=== PATIENT | male | born 1975 | race African-American/Black ===

== ENCOUNTER 2018-12-24 08:00 | Inpatient (IN) | payer OTHER ==
[2019-01-02] MEDS ORDERED: SODIUM CHLORIDE 0.9% P/F 10 ML VIAL IJ ONE (07:00)
[2019-01-02] MEDS ORDERED: MIDAZOLAM HCL 2 MG/2 ML SINGLE DOSE VIAL ONE ×3 (07:00→09:19)
[2019-01-02] MEDS ORDERED: BUPIVACAINE LIPOSOME/PF (EXPAREL) 266 MG/20 ML VIAL ONE (07:01)
[2019-01-02] MEDS ORDERED: ONDANSETRON 4 MG/2 ML VIAL ONE ×2 (08:02→12:12)
[2019-01-02] MEDS ORDERED: CEFAZOLIN 2 GM in DEXTROSE 5%-WATER - 50 ML IVPB ONE (08:23)
[2019-01-02] MEDS ORDERED: TRANEXAMIC ACID 1000 MG/10 ML VIAL IVPUSH ONE (08:23)
[2019-01-02] MEDS ORDERED: VANCOMYCIN 1,000 MG in DEXTROSE 5%-WATER - 250 ML IVPB ONE (08:23)
[2019-01-02] MEDS ORDERED: ceFAZolin SODIUM 1 GM VIAL ONE ×2 (08:30→10:31)
[2019-01-02] MEDS ORDERED: PROPOFOL 20 ML ONE (08:36)
[2019-01-02] MEDS ORDERED: SUCCINYLCHOLINE CHLORIDE 200 MG/10 ML VIAL ONE (08:36)
[2019-01-02] MEDS ORDERED: BENZOIN TINCTURE SWABSTICK TP ONE (10:19)
[2019-01-02] MEDS ORDERED: MAGNESIUM HYDROX 2400MG/30ML ORAL SUSPENSION 30 ML CUP PO PRN (11:13)
[2019-01-02] MEDS ORDERED: MAG HYDROX/AL HYDROX/SIMETH 30 ML UNIT-DOSE CUP PO PRN (11:13)
[2019-01-02] MEDS ORDERED: ONDANSETRON 4 MG/2 ML VIAL IVPUSH PRN (11:13)
--- NOTE | 2019-01-02 11:13 | OP ---
Operative Note - Note: Operative Date: 01/02/19 Pre-Operative Diagnosis: left knee osteoarthritis Operation: left total knee replacement Surgeon: Deep West Manager Beauty: Venus Goss Anesthesiologist/SPORTS MANAGEMENT INTERN: Emilio Beckman Anesthesia: Spinal Estimated Blood Loss (mls): 20 Fluid Volume Replaced (mls): 1,700 Operative Report Dictated: Yes
[2019-01-02] MEDS ORDERED: LACTATED RINGERS SOLUTION 1,000 ML IV SCH (11:15)
[2019-01-02] MEDS ORDERED: ACETAMINOPHEN INJECTION 100 ML IVPB ONE (11:22)
[2019-01-02] MEDS ORDERED: ACETAMINOPHEN 325 MG TABLET (FP) ONE (11:22)
[2019-01-02] MEDS ORDERED: ONDANSETRON 4 MG/2 ML VIAL IVPUSH ONE ×2 (11:25→12:15)
[2019-01-02] MEDS ORDERED: ACETAMINOPHEN 500 MG TABLET (FP) PO SCH (11:30)
[2019-01-02] MEDS ORDERED: ACETAMINOPHEN 1000 MG/100 ML VIAL (NON FORMULARY) IVPB SCH (11:30)
[2019-01-02] MEDS ORDERED: oxyCODONE HCL 5 MG TABLET ONE (12:12)
[2019-01-02] MEDS ORDERED: oxyCODONE HCL 5 MG TABLET PO ONE (12:25)
[2019-01-02] MEDS: oxyCODONE HCL 5 MG TABLET PO PRN ×2 (15:25→21:12)
--- NOTE | 2019-01-02 18:01 | SURG ---
Surgery Machine Operator Packaging Note Machine Operator Packaging: Venus Goss PA-C Date of Service: 01/02/19 Diagnosis: left knee osteoarthritis Procedure: left total knee replacement I was present for the entirety of the operative procedure. For further detail, please refer to operative report. Visit type - Case Type Case Type: Scheduled - Emergency Emergency Visit: No - New patient This patient is new to me today: Yes Date on this admission: 01/02/19
[2019-01-02] MEDS: KETOROLAC TROMETHAMINE 30 MG/1 ML VIAL IVPUSH SCH (18:14)
[2019-01-02] MEDS: CEFAZOLIN 1 GM/D5W 1 GM/50 ML BAG IVPB SCH (18:15)
[2019-01-02] MEDS: ACETAMINOPHEN 325 MG TABLET (FP) PO SCH (18:15)
[2019-01-02] MEDS: GABAPENTIN 300 MG CAPSULE (FP) PO SCH (21:11)
[2019-01-02] MEDS: oxyCODONE HCL 10 MG SUSTAINED ACTING TABLET PO SCH (21:11)
[2019-01-02] MEDS: SENNOSIDES/DOCUSATE COMBO (SENNA PLUS) TABLET (UD) PO SCH (21:11)
[2019-01-02] MEDS: ASPIRIN 81 MG CHEWABLE TABLETS PO SCH (21:12)
[2019-01-03] MEDS: KETOROLAC TROMETHAMINE 30 MG/1 ML VIAL IVPUSH SCH ×3 (02:00→17:57)
[2019-01-03] MEDS ORDERED: CEFAZOLIN 1 GM in DEXTROSE 5%-WATER - 50 ML IVPB ONE (03:15)
[2019-01-03] MEDS ORDERED: ceFAZolin SODIUM 1 GM VIAL ONE (03:17)
[2019-01-03] MEDS ORDERED: DEXTROSE 5%-WATER - 50 ML IVPB ONE ×2 (03:17→20:40)
[2019-01-03] MEDS: CEFAZOLIN 1 GM/D5W 1 GM/50 ML BAG IVPB SCH (03:19)
[2019-01-03] MEDS: ACETAMINOPHEN 325 MG TABLET (FP) PO SCH ×3 (06:27→12:37)
[2019-01-03] MEDS: oxyCODONE HCL 5 MG TABLET PO PRN (08:30)
[2019-01-03 08:33] LABS: HEMATOCRIT 33.5 % (35.4-49); HEMOGLOBIN 11.2 GM/dl (11.7-16.9); MCH 32.7 pg (25.7-33.7); MCHC 33.4 g/dl (32.0-35.9); MEAN CELL VOLUME 97.9 fl (80-96); MEAN PLT VOLUME 8.4 fl (7.5-11.1); PLATELET COUNT 263 K/MM3 (134-434); RBC 3.43 M/mm3 (4.00-5.60); RDW 12.3 % (11.9-15.9); WHITE BLOOD COUNT 16.2 K/mm3 (4.0-10.8)
[2019-01-03 08:43] LABS: CALCIUM 8.3 mg/dl (8.5-10); CREATININE 1.5 mg/dl (0.55-1.3); POTASSIUM 3.9 mmol/L (3.5-5.1)
[2019-01-03] MEDS: GABAPENTIN 300 MG CAPSULE (FP) PO SCH ×2 (10:24→21:19)
[2019-01-03] MEDS: oxyCODONE HCL 10 MG SUSTAINED ACTING TABLET PO SCH ×2 (10:24→21:19)
[2019-01-03] MEDS: ASPIRIN 81 MG CHEWABLE TABLETS PO SCH ×2 (10:24→21:19)
[2019-01-03] MEDS: MULTIVITAMINS (DAILY MVI) TABLET (FP) PO SCH (10:27)
[2019-01-03] MEDS: PANTOPRAZOLE 40 MG TABLET (FP) PO SCH (10:27)
[2019-01-03] MEDS: SENNOSIDES/DOCUSATE COMBO (SENNA PLUS) TABLET (UD) PO SCH ×2 (10:27→21:19)
--- NOTE | 2019-01-03 10:28 | CONSULT ---
Consult Consult Specialty:: IM Reason for Consultation:: post-op medical management - History of Present Illness Chief Complaint: left knee pain History of Present Illness: 43yo man with left knee pain for the past 3 years came in for knee replacement. denies chest pain, palpitations, nausea, vomiting, diarrhea. - History Source History Provided By: Patient Limitations to Obtaining History: No Limitations - Alcohol/Substance Use Hx Alcohol Use: No - Smoking History Smoking history: Never smoked Home Medications - Allergies Allergies/Adverse Reactions: Allergies Allergy/AdvReac Type Severity Reaction Status Date / Time No Known Drug Allergies Allergy Verified 01/02/19 06:45 seasonal Allergy Uncoded 01/02/19 06:45 - Home Medications Home Medications: Ambulatory Orders NK [No Known Home Medication] 12/24/18 Review of Systems - Review of Systems Constitutional: reports: No Symptoms Eyes: reports: No Symptoms HENT: reports: No Symptoms Neck: reports: No Symptoms Cardiovascular: reports: No Symptoms Respiratory: reports: No Symptoms Gastrointestinal: reports: No Symptoms Genitourinary: reports: No Symptoms Musculoskeletal: reports: Joint Pain Integumentary: reports: No Symptoms Neurological: reports: No Symptoms Endocrine: reports: No Symptoms Psychiatric: reports: No Symptoms Physical Exam Vital Signs: Vital Signs Temperature 99.0 F 01/03/19 06:00 Pulse Rate 101 H 01/03/19 06:00 Respiratory Rate 19 01/03/19 06:00 Blood Pressure 122/48 L 01/03/19 06:00 O2 Sat by Pulse Oximetry (%) 97 01/03/19 06:00 Constitutional: Yes: Obese Eyes: Yes: WNL HENT: Yes: WNL Neck: Yes: WNL Cardiovascular: Yes: WNL Respiratory: Yes: WNL Gastrointestinal: Yes: WNL Musculoskeletal: Yes: Joint Stiffness Extremities: Yes: WNL Edema: No Peripheral Pulses WNL: Yes Integumentary: Yes: WNL Wound/Incision: Yes: Clean/Dry, Well Approximated Neurological: Yes: WNL ...Motor Strength: LLE (3/5) Psychiatric: Yes: WNL Labs: CBC, BMP 01/03/19 07:10 01/03/19 07:10 Assessment/Plan 43 yo man with left knee OA S/P left total knee replacement POD #1. no complications. cont pain management. incentive spirometry. on aspirin, neurontin, oxycodone. extra dose of toradol had to be given last night. -PT/OT/OOB as tolerated -blood work reviewed. post-op reactive leucocytosis: will monitor. -cont stool softeners for opioid induced constipation. -morbid obesity: weight loss and healthier lifestyle advised. -CKD: kidney donor. will monitor. avoid nephrotoxic agents when possible. -hyperglycemia: to f/u with PCP to assess for DM -acute on chronic iron deficiency anemia: will monitor. -oral diet; well tolerated -assessment and plan discussed with pt and his at bedside. -
--- NOTE | 2019-01-03 12:28 | OP ---
DATE OF OPERATION: 01/02/2019 SURGEON: Deep West MD RETAIL PHARMACY MANAGER: Venus Goss PA-C ANESTHESIA: General. RADIOISOTOPE TECHNOLOGIST: Emilio Beckman CRNA PREOPERATIVE DIAGNOSIS: Tricompartmental osteoarthritis, left knee, with fixed varus deformity stretched lateral collateral ligament. POSTOPERATIVE DIAGNOSIS: Tricompartmental osteoarthritis, left knee, with fixed varus deformity stretched lateral collateral ligament. OPERATION: Left posterior stabilized total knee arthroplasty cemented, Antler implant. ANESTHESIA: Spinal anesthesia with peripheral nerve block and conscious sedation. ANTIBIOTICS: Kefzol 3 g, vancomycin 1 g preoperative. Kefzol 1 g given at the time of the release of the procedure. OPERATION IN DETAIL: The patient was correctly identified and brought in the operating room. The left lower extremity was prepped and draped in the routine manner with Betadine scrub solution, wiped with alcohol, and DuraPrep was applied. Imaging was available for intraoperative evaluation. Time-out was called. After appropriate prep with Betadine scrub solution, wiped with alcohol, and all skin sebaceous fat removed, a free drape was applied. Midline incision with the knee in flexion, the soft tissue was dissected down to the quadriceps mechanism. Using a longitudinal incision splitting the quadriceps tendon and a medial parapatellar incision with 1-cm cuff on the patella to the medial aspect of the tibial tubercle, the patella was capsized laterally. The knee was exposed of the routine dissection of the soft tissues off the proximal tibia. This was directly off the bone. Hohmann retractor placed behind the tibia leaving the tibia forwards. No complications in doing this. The tricompartmental osteoarthritis really noted predominantly in the patellofemoral medial joint compartment with advanced arthritic changes noted on the lateral evidenced by a rim osteophyte and fibrillation on the femoral condyle in the femorotibial articulation in the lateral compartment. The menisci were intact. The cruciate ligaments were transected. The jig system for Location was utilized in the tibia first. This was cut to 90 degrees at the shaft of the tibia. The sizing was for a size 6 tibial component. The tibial tray was appropriately prepared with the appropriate jig system and initial drill and broach device. Once this had been performed, the femoral component was inserted by a starter drill insertion at the intercondylar notch just above the posterior cruciate ligament. The jig was sent to 10 degrees bony resection because of the fixed flexion deformity and 4 degrees of valgus. The lateral femoral condyle was deficient. The jigs were seated according to the tibial surface for the flexion gap alignment. All jig cuts were made with the appropriate Location system including the box cut for a posterior stabilized implant, a size 6 Triathlon Antler implant was tested and trialed. With an 11-mm spacer, the flexion extension gaps were even at 11 mm, the knee tracked well, the patellar tracking was normal, uncomplicated. The limb, which was in marked varus preoperatively, was now straight, and tracking of the femorotibial articulation was well maintained. A subtle degree of jog of laxity on the lateral side noted from the stretch of the lateral collateral ligament. The popliteus tendon was left alone. Once trialing components were seated, the definitive implants were inserted measuring size 6 tibia, size 6 femur, size 27-mm patellar button after the jig, preparation with the patella applied, and it must be noted that the patella was cut from quadriceps tendon to patellar ligament, and then, the TravelLinellipop jig device applied, and lug holes drilled appropriately. Cementing was in one stage. All of extraneous cement removed. The knee was put through a range of movement, and it was found to be a range of 0 to 110 degrees, stability in the coronal, sagittal, and rotator planes with 11-mm spacer was well maintained, testing the medial compartment for a SHARK test with a Ty revealed a tight medial compartment, and this was the correct polyethylene spacer encountered for, this was a posterior stabilized polyethylene. Wounds were thoroughly lavaged. Closure as follows: Quadriceps tendon 1 Vicryl , subcutaneous 1 and 2-0 Vicryl, skin mary, drainage 1/8-inch Hemovac into the subcutaneous plane inserted. Operation went well with no complications. A gram of Kefzol was given at the release of the tourniquet and postoperative x-rays revealed excellent seating of implant. MD JOSEPH Steven/[id number] MTDD
--- NOTE | 2019-01-03 17:25 | PN ---
Progress Note (short form) - Note Progress Note: POD#1 Doing well C/O incisional pain Vitals as per chart. Walked in the hallway. Bandage dry No NVD Drain in situ PLAN Will D/C drain tomorrow Pain Mx DVT proph Aspirin with SSED D/C planning
[2019-01-03] MEDS ORDERED: PIPERACILLIN/TAZOB 3.375 GM 3.375 GM in DEXTROSE 5%-WATER - 50 ML IVPB ONE (19:15)
[2019-01-03] MEDS ORDERED: VANCOMYCIN 1 GM in D5W (PRE-DOCKED) 1,000 MG/250 ML IVPB ONE (19:15)
[2019-01-03] MEDS ORDERED: PIPERACILLIN/TAZOBACTAM 3.375 GM VIAL IVPB ONE (20:40)
[2019-01-04] MEDS: ACETAMINOPHEN 325 MG TABLET (FP) PO SCH ×4 (00:59→17:55)
[2019-01-04] MEDS: KETOROLAC TROMETHAMINE 30 MG/1 ML VIAL IVPUSH SCH ×3 (03:00→17:55)
[2019-01-04 09:45] LABS: BASO % 0.2 % (0-2.0); EOS % 0.8 % (0-4.5); HEMATOCRIT 34.4 % (35.4-49); HEMOGLOBIN 11.2 GM/dl (11.7-16.9); LYMPH % 10.9 % (8-40); MCH 32.4 pg (25.7-33.7); MCHC 32.6 g/dl (32.0-35.9); MEAN CELL VOLUME 99.4 fl (80-96); MEAN PLT VOLUME 8.7 fl (7.5-11.1); MONO % 5.7 % (3.8-10.2); NEUT % 82.4 % (42.8-82.8); PLATELET COUNT 236 K/MM3 (134-434); RBC 3.46 M/mm3 (4.00-5.60); RDW 12.4 % (11.9-15.9); WHITE BLOOD COUNT 18.2 K/mm3 (4.0-10.8)
[2019-01-04] MEDS: ASPIRIN 81 MG CHEWABLE TABLETS PO SCH ×2 (09:49→21:26)
[2019-01-04] MEDS: PANTOPRAZOLE 40 MG TABLET (FP) PO SCH (09:50)
[2019-01-04] MEDS: GABAPENTIN 300 MG CAPSULE (FP) PO SCH ×2 (09:50→21:29)
[2019-01-04] MEDS: oxyCODONE HCL 10 MG SUSTAINED ACTING TABLET PO SCH ×3 (09:50→21:42)
[2019-01-04] MEDS: MULTIVITAMINS (DAILY MVI) TABLET (FP) PO SCH (09:50)
[2019-01-04] MEDS: SENNOSIDES/DOCUSATE COMBO (SENNA PLUS) TABLET (UD) PO SCH ×2 (09:50→21:29)
[2019-01-04 09:52] LABS: CALCIUM 8.5 mg/dl (8.5-10); CREATININE 1.6 mg/dl (0.55-1.3); POTASSIUM 4.5 mmol/L (3.5-5.1)
--- NOTE | 2019-01-04 10:49 | PN ---
Progress Note, Physician Chief Complaint: left knee pain, fever History of Present Illness: 43yo man with left knee pain for the past 3 years came in for knee replacement. denies chest pain, palpitations, nausea, vomiting, diarrhea. - Current Medication List Current Medications: Active Medications Acetaminophen (Tylenol -) 650 mg PO Q6H [facility] Last Admin: 01/04/19 05:48 Dose: 650 mg Al Hydroxide/Mg Hydroxide (Mylanta Oral Suspension -) 30 ml PO Q4H PRN PRN Reason: DYSPEPSIA Aspirin (Asa -) 81 mg PO BID [facility] Last Admin: 01/04/19 09:49 Dose: 81 mg Fentanyl (Sublimaze Injection -) 50 mcg IVPUSH [id number] PRN PRN Reason: PAIN-PACU ORDER X 4 DOSES ONLY Gabapentin (Neurontin -) 300 mg PO BID [facility] Last Admin: 01/04/19 09:50 Dose: 300 mg Sodium Chloride (Normal Saline -) 1,000 mls @ 100 mls/hr IV ASDIR [facility] Ketorolac Tromethamine (Toradol Injection -) 30 mg IVPUSH Q8H-IV [facility] Stop: 01/07/19 17:59 Last Admin: 01/04/19 09:49 Dose: 30 mg Magnesium Hydroxide (Milk Of Magnesia -) 30 ml PO PRN PRN PRN Reason: CONSTIPATION Multivitamins/Minerals/Vitamin C (Tab-A-Vit -) 1 tab PO DAILY [facility] Last Admin: 01/04/19 09:50 Dose: 1 tab Ondansetron HCl (Zofran Injection) 4 mg IVPUSH Q6H PRN PRN Reason: NAUSEA Oxycodone HCl (Roxicodone -) 5 mg PO Q3H PRN PRN Reason: PAIN LEVEL 1-5 Last Admin: 01/03/19 08:30 Dose: 5 mg Oxycodone HCl (Roxicodone -) 10 mg PO Q3H PRN PRN Reason: PAIN LEVEL 6-10 Last Admin: 01/02/19 21:12 Dose: 10 mg Oxycodone HCl (Oxycontin -) 10 mg PO BID [facility] Stop: 01/05/19 14:22 Last Admin: 01/04/19 09:50 Dose: 10 mg Pantoprazole Sodium (Protonix -) 40 mg PO DAILY [facility] Last Admin: 01/04/19 09:50 Dose: 40 mg Senna/Docusate Sodium (Pericolace -) 2 tablet PO BID [facility] Last Admin: 01/04/19 09:50 Dose: 2 tablet - Objective Vital Signs: Vital Signs Temperature 102 F H 01/04/19 06:00 Pulse Rate 100 H 01/04/19 06:00 Respiratory Rate 18 01/04/19 08:22 Blood Pressure 141/51 L 01/04/19 06:00 O2 Sat by Pulse Oximetry (%) 97 01/04/19 08:22 Constitutional: Yes: Well Nourished Eyes: Yes: WNL HENT: Yes: WNL Neck: Yes: WNL Cardiovascular: Yes: WNL Gastrointestinal: Yes: WNL Genitourinary: Yes: WNL Musculoskeletal: Yes: Joint Stiffness Extremities: Yes: WNL Edema: No Peripheral Pulses WNL: Yes Integumentary: Yes: WNL Wound/Incision: Yes: Clean/Dry, Well Approximated Neurological: Yes: WNL ...Motor Strength: LLE (reduced post-op) Psychiatric: Yes: WNL Labs: CBC, BMP 01/04/19 08:00 01/04/19 08:00 Assessment/Plan 43 yo man with left knee OA S/P left total knee replacement POD #2. cont pain management. incentive spirometry. on aspirin, neurontin, oxycodone. -Pt developed fever: goldstein-cultured. one dose of zosyn, vanco given. on tylenol. -PT/OT/OOB as tolerated -hyponatremia: improved. -O2 via NC. keep O2>92%. -cont stool softeners for opioid induced constipation. -morbid obesity: weight loss and healthier lifestyle advised. -CKD: kidney donor. will monitor. avoid nephrotoxic agents when possible. -hyperglycemia: to f/u with PCP to assess for DM -acute on chronic iron deficiency anemia: will monitor. -oral diet; well tolerated -assessment and plan discussed with pt and his at bedside. -planning to DC home tomorrow if stable
[2019-01-04] MEDS: ENOXAPARIN NA (PORCINE) 120 MG/0.8 ML DISP.SYRIN SQ SCH (22:39)
[2019-01-05] MEDS: ACETAMINOPHEN 325 MG TABLET (FP) PO SCH ×5 (06:20→18:38)
[2019-01-05] MEDS: SODIUM CHLORIDE 1,000 ML IV SCH (09:13)
[2019-01-05] MEDS: KETOROLAC TROMETHAMINE 30 MG/1 ML VIAL IVPUSH SCH (09:14)
[2019-01-05] MEDS ORDERED: PT OWN MED DRAWER 7, Y5N ONE (09:25)
[2019-01-05] MEDS: ASPIRIN 81 MG CHEWABLE TABLETS PO SCH (09:50)
[2019-01-05] MEDS: SENNOSIDES/DOCUSATE COMBO (SENNA PLUS) TABLET (UD) PO SCH ×2 (09:50→22:37)
[2019-01-05] MEDS: MULTIVITAMINS (DAILY MVI) TABLET (FP) PO SCH (09:50)
[2019-01-05] MEDS: PANTOPRAZOLE 40 MG TABLET (FP) PO SCH (09:51)
[2019-01-05] MEDS: GABAPENTIN 300 MG CAPSULE (FP) PO SCH ×2 (09:51→22:32)
[2019-01-05] MEDS: ENOXAPARIN NA (PORCINE) 120 MG/0.8 ML DISP.SYRIN SQ SCH (09:52)
[2019-01-05 10:01] LABS: BASO % 2.7 % (0-2.0); EOS % 3.1 % (0-4.5); HEMATOCRIT 30.6 % (35.4-49); HEMOGLOBIN 10.2 GM/dl (11.7-16.9); LYMPH % 14.6 % (8-40); MCH 33.1 pg (25.7-33.7); MCHC 33.5 g/dl (32.0-35.9); MEAN PLT VOLUME 8.3 fl (7.5-11.1); MONO % 4.6 % (3.8-10.2); PLATELET COUNT 248 K/MM3 (134-434); RBC 3.09 M/mm3 (4.00-5.60); RDW 12.8 % (11.9-15.9)
[2019-01-05 10:19] LABS: CALCIUM 8.1 mg/dl (8.5-10); CREATININE 1.4 mg/dl (0.55-1.3); POTASSIUM 4.1 mmol/L (3.5-5.1)
--- NOTE | 2019-01-05 10:23 | PN ---
Progress Note (short form) - Note Progress Note: POD#3 Pt without any CP/SOB. OOB to chair/bathroom. Pt states that the drain was removed yesterday by Dr. West. Occasional dizziness with standing. Vital Signs Period Temp Pulse Resp BP Sys/Hill Pulse Ox Last 24 Hr 97.9 F-101.5 F 104-118 18-19 115-149/57-81 92-98 GEN: A&0x3, NAD CV: tachycardic Lungs: CTA b/l anteriorly RLE: no calf tenderness or swelling. SCD in place. LLE: mild swelling to knee/ below the knee, non-tender. Surgical dressing c/d/i. Neuro: 5/5 dorsi/plantar flexion b/l +2 DP pulses. CBC, BMP 06/24/19 09:36 06/24/19 09:36 Duplex study of b/l LE: No evidence of clot to both legs. V/Q scan: no discrete ventilation/perfusion mismatch visualized. A/P: 43 yo male s/p Left total knee replacement, POD#3 Pt with hypoxia when off of NC, he denies any CP or SOB. Pt has been receiving aspirin 81 mg bid for post-op DVT ppx. He was also placed on lovenox 120mg SQ BID for DVT treatment until all studies could by completed to R/o DVT. Incentive spirometer Pt also to be seen by cardiology, started on cardizem. D/w Dr. West May complete LLE vascular study. Dagoberto wrap and GURPREET may be removed to eval the LLE for DVT D/w Dr. Dobson
--- NOTE | 2019-01-05 10:39 | EKG ---
Test Reason : Blood Pressure : / mmHG Vent. Rate : 113 BPM Atrial Rate : 113 BPM P-R Int : 142 ms QRS Dur : 092 ms QT Int : 318 ms P-R-T Axes : 021 -17 025 degrees QTc Int : 436 ms SINUS TACHYCARDIA WITH FREQUENT PREMATURE VENTRICULAR COMPLEXES OTHERWISE NORMAL ECG NO PREVIOUS ECGS AVAILABLE Confirmed by SOL MOSQUEDA, INES ([id number]) on 01/05/2019 10:39:42 AM Referred By: Deep West Confirmed By:INES HORTON MD
--- NOTE | 2019-01-05 10:54 | PN ---
Progress Note, Physician Chief Complaint: left knee pain, fever History of Present Illness: 43yo man with left knee pain for the past 3 years came in for knee replacement. denies chest pain, palpitations, nausea, vomiting, diarrhea. - Current Medication List Current Medications: Active Medications Acetaminophen (Tylenol -) 650 mg PO Q6H [facility] Last Admin: 01/05/19 06:20 Dose: 650 mg Al Hydroxide/Mg Hydroxide (Mylanta Oral Suspension -) 30 ml PO Q4H PRN PRN Reason: DYSPEPSIA Aspirin (Asa -) 81 mg PO BID [facility] Last Admin: 01/05/19 09:50 Dose: 81 mg Diltiazem HCl (Cardizem Cd -) 120 mg PO DAILY [facility] Last Admin: 01/05/19 09:51 Dose: 120 mg Gabapentin (Neurontin -) 300 mg PO BID [facility] Last Admin: 01/05/19 09:51 Dose: 300 mg Sodium Chloride (Normal Saline -) 1,000 mls @ 100 mls/hr IV ASDIR [facility] Last Admin: 01/05/19 09:13 Dose: Not Given Magnesium Hydroxide (Milk Of Magnesia -) 30 ml PO PRN PRN PRN Reason: CONSTIPATION Multivitamins/Minerals/Vitamin C (Tab-A-Vit -) 1 tab PO DAILY [facility] Last Admin: 01/05/19 09:50 Dose: 1 tab Ondansetron HCl (Zofran Injection) 4 mg IVPUSH Q6H PRN PRN Reason: NAUSEA Oxycodone HCl (Roxicodone -) 5 mg PO Q3H PRN PRN Reason: PAIN LEVEL 1-5 Last Admin: 01/03/19 08:30 Dose: 5 mg Oxycodone HCl (Roxicodone -) 10 mg PO Q3H PRN PRN Reason: PAIN LEVEL 6-10 Last Admin: 01/02/19 21:12 Dose: 10 mg Oxycodone HCl (Oxycontin -) 10 mg PO BID [facility] Stop: 01/05/19 14:22 Last Admin: 01/04/19 21:42 Dose: Not Given Pantoprazole Sodium (Protonix -) 40 mg PO DAILY [facility] Last Admin: 01/05/19 09:51 Dose: 40 mg Senna/Docusate Sodium (Pericolace -) 2 tablet PO BID [facility] Last Admin: 01/05/19 09:50 Dose: 2 tablet - Objective Vital Signs: Vital Signs Temperature 98.6 F 01/05/19 09:56 Pulse Rate 106 H 01/05/19 09:56 Respiratory Rate 18 01/05/19 09:56 Blood Pressure 127/59 L 01/05/19 09:56 O2 Sat by Pulse Oximetry (%) 93 L 01/05/19 10:00 Constitutional: Yes: Well Nourished, No Distress, Calm, Obese Eyes: Yes: WNL HENT: Yes: WNL Neck: Yes: WNL Cardiovascular: Yes: WNL Respiratory: Yes: Diminished Gastrointestinal: Yes: WNL Genitourinary: Yes: WNL Musculoskeletal: Yes: Joint Stiffness Extremities: Yes: WNL Edema: No Wound/Incision: Yes: Clean/Dry, Well Approximated Neurological: Yes: WNL ...Motor Strength: WNL Psychiatric: Yes: WNL Labs: CBC, BMP 01/05/19 09:36 01/05/19 09:36 Assessment/Plan 43 yo man with left knee OA S/P left total knee replacement. cont pain management. incentive spirometry. on aspirin, neurontin, oxycodone. -Pt developed fever, hypoxemia, tachycardia: goldstein-cultured. one dose of zosyn, vanco given. on oxycodone.. PE and DVT ruled out. lovenox stopped. cardiology and pulmonary eval requested. viral panel pending. O2 via NC. keep O2 >92%. ABG pending. if no further explanation to the leucocytosis may have to get hematology evaluation. -cont stool softeners for opioid induced constipation. -morbid obesity: weight loss and healthier lifestyle advised. -CKD: kidney donor. will monitor. avoid nephrotoxic agents when possible. -hyperglycemia: to f/u with PCP to assess for DM -acute on chronic iron deficiency anemia: will monitor. --PT/OT/OOB as tolerated -oral diet; well tolerated -assessment and plan discussed with pt and his at bedside.
[2019-01-05] MEDS: oxyCODONE HCL 10 MG SUSTAINED ACTING TABLET PO SCH (13:05)
[2019-01-05 13:27] LABS: ARTERIAL BLD GAS O2 SATURATION 97.8 % (95-98); ARTERIAL BLOOD GAS BASE EXCESS 2.3 meq/l (-2-2); ARTERIAL BLOOD GAS PCO2 40.7 mmHg (35-45); ARTERIAL BLOOD GAS PO2 89.4 mmHg (80-105); ARTERIAL BLOOD GAS pH 7.43 (7.35-7.45)
[2019-01-05 13:32] LABS: ALLENS TEST POSITIVE
--- NOTE | 2019-01-05 13:57 | CON.CARD ---
Consult Consult Specialty:: Cardiology Referred by:: Medicine Reason for Consultation:: tachycardia - History of Present Illness Chief Complaint: tachycardia History of Present Illness: 43M with history of knee pain now post op from TKR with tachycardia, hypoxia. Prior to surgery he was active with walking, stairs without chest pain, dyspnea , orthopnea, palps. Had L knee replacement on 01/02, noted to have trigeminy during surgery. Post op developed fever, hypoxemia, tachycardia. Received broad spectrum abx, VQ scan low probability PE. Feels chest discomfort when taking deep breaths and short of breath. no dizziness, palps, orthopnea, PND. has LLE edema since surgery. - Alcohol/Substance Use Hx Alcohol Use: No - Smoking History Smoking history: Never smoked Home Medications - Allergies Allergies/Adverse Reactions: Allergies Allergy/AdvReac Type Severity Reaction Status Date / Time No Known Drug Allergies Allergy Verified 01/02/19 06:45 seasonal Allergy Uncoded 01/02/19 06:45 - Home Medications Home Medications: Ambulatory Orders NK [No Known Home Medication] 12/24/18 Family Disease History - Family Disease History Family History: Unremarkable Review of Systems - Review of Systems Constitutional: reports: No Symptoms Eyes: reports: No Symptoms HENT: reports: No Symptoms Neck: reports: No Symptoms Cardiovascular: reports: No Symptoms Respiratory: reports: No Symptoms Gastrointestinal: reports: No Symptoms Genitourinary: reports: No Symptoms Musculoskeletal: reports: No Symptoms Integumentary: reports: No Symptoms Neurological: reports: No Symptoms Endocrine: reports: No Symptoms Hematology/Lymphatic: reports: No Symptoms Psychiatric: reports: No Symptoms Vital Signs: Vital Signs Temperature 98.6 F 01/05/19 09:56 Pulse Rate 106 H 01/05/19 09:56 Respiratory Rate 18 01/05/19 09:56 Blood Pressure 127/59 L 01/05/19 09:56 O2 Sat by Pulse Oximetry (%) 93 L 01/05/19 10:00 Constitutional: Yes: Well Nourished, No Distress, Calm Eyes: Yes: Conjunctiva Clear, EOM Intact HENT: Yes: Atraumatic, Normocephalic Neck: Yes: Supple, Trachea Midline Respiratory: Yes: Regular, CTA Bilaterally Gastrointestinal: Yes: Normal Bowel Sounds, Soft Cardiovascular: Yes: Tachycardia JVD: No Carotid Bruit: No PMI: Non-Displaced Heart Sounds: Yes: S1, S2 Murmur: No: Systolic Murmur Musculoskeletal: No: Back Pain Extremities: No: Cold Edema: Yes Edema: LLE: Trace Peripheral Pulses WNL: Yes Peripheral Pulses: 2+ Left Doralis Pedis, 2+ Right Dorsalis Pedis Integumentary: No: Jaundice Neurological: Yes: Alert, Oriented Psychiatric: No: Agitated - Other Data Labs, Other Data: CBC, BMP 01/05/19 09:36 01/05/19 09:36 Assessment/Plan tele: sinus tachycardia, PVCs EKG: sinus tachycardia frequent PVCs VQ scan: low probability for PE sinus tachycardia, frequent PVCs - check echo - may be related to underlying fever, anemia, pain - manage per primary, surgery - cont diltiazem hypoxia - echo as above - VQ scan neg for PE - pulm consulted s/p L TKR - manage per ortho CKD - stable, history of kidney donation
[2019-01-05 15:36] VITALS: BMI 44.0
[2019-01-05] MEDS: oxyCODONE HCL 5 MG TABLET PO PRN ×2 (16:31→22:35)
[2019-01-05] MEDS ORDERED: HEPARIN NA (PORCINE) 5,000 UNITS/ML 1ML VIAL IVPUSH PRN ×2 (17:31)
--- NOTE | 2019-01-05 17:52 | CON.PULM ---
Consult Consult Specialty:: PULMONARY Referred by:: ANDERS Reason for Consultation:: HYPOXEMIA/TACHYCARDIA/POST-OP KNEE - History of Present Illness Chief Complaint: SOB History of Present Illness: 43M with history of knee pain now post op from TKR with tachycardia, hypoxia. Prior to surgery he was active with walking, stairs without chest pain, dyspnea , orthopnea, palps. Had L knee replacement on 01/02, noted to have trigeminy during surgery. Post op developed fever, hypoxemia, tachycardia. Received broad spectrum abx, VQ scan low probability PE. Feels chest discomfort when taking deep breaths and short of breath. no dizziness, palps, orthopnea, PND. has LLE edema since surgery. 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 Cardio/Vascular: Yes: Other (TRIGEMINY) Pulmonary: No: COPD Gastrointestinal: Yes: Constipation Hepatobiliary: No: Cirrhosis Renal/: Yes: Renal Failure, Other (SOLITARY KIDNEY) Heme/Onc: No: Anemia Psych: No: Addictions Endocrine: No: Diabetes Mellitus - Past Surgical History Past Surgical History: Yes: Joint Replacement - Alcohol/Substance Use Hx Alcohol Use: No - Smoking History Smoking history: Never smoked - Social History Usual Living Arrangement: With Spouse Place of : [facility] History of Recent Travel: No Home Medications - Allergies Allergies/Adverse Reactions: Allergies Allergy/AdvReac Type Severity Reaction Status Date / Time No Known Drug Allergies Allergy Verified 01/02/19 06:45 seasonal Allergy Uncoded 01/02/19 06:45 - Home Medications Home Medications: Ambulatory Orders NK [No Known Home Medication] 12/24/18 Family Disease History - Family Disease History Family History: Unremarkable Review of Systems - Review of Systems Constitutional: denies: Chills, Fever Eyes: denies: Blind Spots HENT: denies: Difficult Swallowing Neck: denies: Decreased ROM Cardiovascular: reports: Chest Pain, Shortness of Breath Respiratory: reports: Exercise Intolerance, SOB, SOB on Exertion. denies: Cough , Hemoptysis, Snoring, Wheezing Gastrointestinal: reports: No Symptoms Genitourinary: reports: No Symptoms Breasts: reports: No Symptoms Reported Musculoskeletal: reports: Joint Pain Integumentary: reports: No Symptoms Neurological: reports: No Symptoms Endocrine: reports: No Symptoms Hematology/Lymphatic: reports: No Symptoms Psychiatric: reports: No Symptoms Physical Exam Vital Sings: Vital Signs Temperature 98.7 F 01/05/19 14:01 Pulse Rate 104 H 01/05/19 14:01 Respiratory Rate 19 01/05/19 14:01 Blood Pressure 145/71 01/05/19 14:01 O2 Sat by Pulse Oximetry (%) 98 01/05/19 14:01 Constitutional: Yes: Calm Eyes: Yes: EOM Intact HENT: Yes: Normocephalic Neck: Yes: Trachea Midline Cardiovascular: Yes: Tachycardia, S1, S2, Other (ECTOPICS) Respiratory: Yes: CTA Bilaterally Gastrointestinal: Yes: Abdomen, Obese Extremities: Yes: Calf Tenderness Edema: Yes Neurological: Yes: Alert Labs: CBC, BMP 01/05/19 09:36 01/05/19 09:36 ABG Results ABG pH 7.43 (7.35-7.45) 01/05/19 11:55 ABG pCO2 at Pt Temp 40.7 mmHg (35-45) 01/05/19 11:55 ABG pO2 at Pt Temp 89.4 mmHg (80-105) 01/05/19 11:55 ABG HCO3 26.3 mmol/L (22-27) 01/05/19 11:55 ABG O2 Sat (Measured) 97.8 % (95-98) 01/05/19 11:55 ABG O2 Content 6.7 % vol (15-22) L* 01/05/19 11:55 ABG Base Excess 2.3 meq/l (-2-2) H 01/05/19 11:55 REST REVIEWED Imaging - Results Chest X-ray: Report Reviewed, Image Reviewed Ultrasound: Report Reviewed Other: Report Reviewed Problem List - Problems (1) Hypoxemia during surgery Code(s): R09.02 - HYPOXEMIA; I97.88 - OTH INTRAOPERATIVE COMPLICATIONS OF THE CIRC SYS, NEC (2) Total knee replacement status Code(s): Z96.659 - PRESENCE OF UNSPECIFIED ARTIFICIAL KNEE JOINT (3) Chest pain Code(s): R07.9 - CHEST PAIN, UNSPECIFIED (4) Trigeminy Code(s): R00.8 - OTHER ABNORMALITIES OF HEART BEAT Assessment/Plan TACHYCARDIA/HYPOXEMIA/ VENTRICULAR TRIGEMINY S/P KNEE REPLACEMENT V/Q LOW PROBABILITY FOR PE/VENOUS DUPLEX NEGATIVE WOULD START IV HEPARIN/D/C ASA INCENTIVE HINA/CONTINUE SUPPLEMENTAL O2 WILL ASK RENAL TO EVAL IN VIEW OF SOLITARY KIDNEY AND FEASIBILITY OF CTA (LOW CONTRAST LOAD) WILL TRANSFER TO TELE AT [facility] IN VIEW OF VENTRICULAR TRIGEMINY Alysha ANDRES MD
[2019-01-05] MEDS: HEPARIN INFUSION - 25,000 UNITS/500 ML INFUS.BAG IVPB SCH (18:38)
[2019-01-06] MEDS ORDERED: HEPARIN NA (PORCINE) 5,000 UNITS/ML 1ML VIAL IVPUSH PRN (01:47)
[2019-01-06] MEDS: ACETAMINOPHEN 325 MG TABLET (FP) PO SCH ×4 (01:48→18:02)
[2019-01-06] MEDS: HEPARIN NA (PORCINE) 5,000 UNITS/ML 1ML VIAL IVPUSH PRN ×3 (01:52→18:59)
[2019-01-06] MEDS: HEPARIN INFUSION - 25,000 UNITS/500 ML INFUS.BAG IVPB SCH (01:53)
[2019-01-06 06:51] LABS: BASO % 0.9 % (0-2.0); EOS % 3.9 % (0-4.5); HEMATOCRIT 26.9 % (35.4-49); HEMOGLOBIN 8.8 GM/dL (11.7-16.9); LYMPH % 25.3 % (8-40); MCHC 32.7 g/dl (32.0-35.9); MEAN CELL VOLUME 97.7 fl (80-96); MONO % 5.8 % (3.8-10.2); NEUT % 64.1 % (42.8-82.8); PLATELET COUNT 247 K/MM3 (134-434); RBC 2.76 M/mm3 (4.00-5.60); RDW 13.2 % (11.9-15.9); WHITE BLOOD COUNT 13.1 K/mm3 (4.0-10.0)
[2019-01-06 07:02] LABS: BLOOD UREA NITROGEN 11.1 mg/dL (7-18); CREATININE 1.3 mg/dL (0.55-1.3); POTASSIUM 4.1 mmol/L (3.5-5.1)
[2019-01-06] MEDS: oxyCODONE HCL 5 MG TABLET PO PRN ×2 (08:27→12:32)
[2019-01-06] MEDS: GABAPENTIN 300 MG CAPSULE (FP) PO SCH ×2 (09:20→21:14)
[2019-01-06] MEDS: PANTOPRAZOLE 40 MG TABLET (FP) PO SCH (09:20)
[2019-01-06] MEDS: SENNOSIDES/DOCUSATE COMBO (SENNA PLUS) TABLET (UD) PO SCH ×2 (09:20→21:14)
[2019-01-06] MEDS: FERROUS SO4 325 MG TABLET (FP) PO SCH (09:20)
[2019-01-06] MEDS: MULTIVITAMINS (DAILY MVI) TABLET (FP) PO SCH (09:20)
[2019-01-06] MEDS ORDERED: FOLIC ACID 1 MG TABLET (FP) PO SCH (10:00)
--- NOTE | 2019-01-06 10:09 | PN ---
Progress Note (short form) - Note Progress Note: POD#4 Pt with knee discomfort/swelling. Mild SOB with deep inspiration. No CP. Vital Signs Period Temp Pulse Resp BP Sys/Hill Pulse Ox Last 24 Hr 98.4 F-98.8 F 91-109 17-20 133-145/56-82 94-98 GEN: A&0x3, NAD Left knee: surgical dressing in place(c/d/i). Left knee swollen. Mild ankle/ calf edema. No calf tenderness b/l. Thigh/calf remains soft. 5/5 dorsi/plantar flexion b/l. +2 DP pulses b/l. CBC, BMP 06/25/19 05:30 06// 05:30 Laboratory Tests //19 05:30 PTT (Actin FS) 44.8 H A/P: 43 yo male s/p left total knee replacement, POD#[address] [facility] for trigmeniny/hypoxia Pt being treated for possible PE with IV heparin. Aspirin discontinued. Duplex study revealed non-compressible left posterior tibial vein with flow. Renal consulted for management/recommendations on CTA in pt with solitary kidney Physical therapy reconsulted for ROM/ambulation as tolerated if no medical contraindications Monitor H&H, iron daily Cardiology, Pt HR improved overall, continue cardizem as per cardiology. Echo to be completed He remains afebrile with decrease in leukocytosis Aggressive incentive spirometer, supplemental oxygen
--- NOTE | 2019-01-06 12:39 | PN ---
Progress Note (short form) - Note Progress Note: s: sob and chest pain improved, feels better today. Current Medications Acetaminophen (Tylenol -) 650 mg PO Q6H [facility] Last Admin: 01/06/19 11:56 Dose: 650 mg Al Hydroxide/Mg Hydroxide (Mylanta Oral Suspension -) 30 ml PO Q4H PRN PRN Reason: DYSPEPSIA Diltiazem HCl (Cardizem Cd -) 120 mg PO DAILY [facility] Last Admin: 01/06/19 09:20 Dose: 120 mg Ferrous Sulfate (Feosol -) 325 mg PO DAILY [facility] Last Admin: 01/06/19 09:20 Dose: 325 mg Gabapentin (Neurontin -) 300 mg PO BID [facility] Last Admin: 01/06/19 09:20 Dose: 300 mg Heparin Sodium (Porcine) (Heparin -) 5,000 unit IVPUSH PRN PRN PRN Reason: APTT (SECONDS) <40 Heparin Sodium (Porcine) (Heparin -) 1,000 unit IVPUSH PRN PRN PRN Reason: APTT (SECONDS) 40-49 Last Admin: 01/06/19 09:19 Dose: 1,000 unit Heparin Sodium/Dextrose (Heparin Infusion -) 25,000 units in 500 mls @ 20 mls/ hr IVPB TITR [facility]; Protocol Last Titration: 01/06/19 09:22 Dose: 1,200 units/hr, 24 mls/hr Magnesium Hydroxide (Milk Of Magnesia -) 30 ml PO PRN PRN PRN Reason: CONSTIPATION Multivitamins/Minerals/Vitamin C (Tab-A-Vit -) 1 tab PO DAILY [facility] Last Admin: 01/06/19 09:20 Dose: 1 tab Ondansetron HCl (Zofran Injection) 4 mg IVPUSH Q6H PRN PRN Reason: NAUSEA Oxycodone HCl (Roxicodone -) 5 mg PO Q3H PRN PRN Reason: PAIN LEVEL 1-5 Last Admin: 01/05/19 22:35 Dose: 5 mg Oxycodone HCl (Roxicodone -) 10 mg PO Q3H PRN PRN Reason: PAIN LEVEL 6-10 Last Admin: 01/06/19 08:27 Dose: 10 mg Pantoprazole Sodium (Protonix -) 40 mg PO DAILY [facility] Last Admin: 01/06/19 09:20 Dose: 40 mg Senna/Docusate Sodium (Pericolace -) 2 tablet PO BID [facility] Last Admin: 01/06/19 09:20 Dose: 2 tablet Vital Signs Period Temp Pulse Resp BP Sys/Hill Pulse Ox Last 24 Hr 97.8 F-98.8 F 84-109 17-20 117-145/51-82 94-98 Constitutional: Yes: Well Nourished, No Distress, Calm Eyes: Yes: Conjunctiva Clear, EOM Intact HENT: Yes: Atraumatic, Normocephalic Neck: Yes: Supple, Trachea Midline Respiratory: Yes: Regular, CTA Bilaterally Gastrointestinal: Yes: Normal Bowel Sounds, Soft Cardiovascular: Yes: Tachycardia JVD: No Carotid Bruit: No PMI: Non-Displaced Heart Sounds: Yes: S1, S2 Murmur: No: Systolic Murmur Musculoskeletal: No: Back Pain Extremities: No: Cold Edema: Yes Edema: LLE: Trace Peripheral Pulses WNL: Yes Peripheral Pulses: 2+ Left Doralis Pedis, 2+ Right Dorsalis Pedis Integumentary: No: Jaundice Neurological: Yes: Alert, Oriented Assessment/Plan tele: sinus, PVCs EKG: sinus tachycardia frequent PVCs VQ scan: low probability for PE sinus tachycardia, frequent PVCs - check echo - may be related to underlying fever, anemia (hgb 11->8.8), pain - manage per primary, surgery - cont diltiazem hypoxia - echo as above - VQ scan neg for PE, however symptoms suggestive of PE and noncompressible L posterior tibial vein, renal consulted to evaluate for CTA chest given history of one kidney - pulm consulted, recommended continue AC, on heparin gtt s/p L TKR - manage per ortho CKD - stable, history of kidney donation
--- NOTE | 2019-01-06 12:52 | PN ---
Progress Note, Physician History of Present Illness: PULMONARY ALERT,OOB-CHAIR,-C/O SOB,-CP AMBULATING WITH PT - Current Medication List Current Medications: Active Medications Acetaminophen (Tylenol -) 650 mg PO Q6H [facility] Last Admin: 01/06/19 11:56 Dose: 650 mg Al Hydroxide/Mg Hydroxide (Mylanta Oral Suspension -) 30 ml PO Q4H PRN PRN Reason: DYSPEPSIA Diltiazem HCl (Cardizem Cd -) 120 mg PO DAILY [facility] Last Admin: 01/06/19 09:20 Dose: 120 mg Ferrous Sulfate (Feosol -) 325 mg PO DAILY [facility] Last Admin: 01/06/19 09:20 Dose: 325 mg Gabapentin (Neurontin -) 300 mg PO BID [facility] Last Admin: 01/06/19 09:20 Dose: 300 mg Heparin Sodium (Porcine) (Heparin -) 5,000 unit IVPUSH PRN PRN PRN Reason: APTT (SECONDS) <40 Heparin Sodium (Porcine) (Heparin -) 1,000 unit IVPUSH PRN PRN PRN Reason: APTT (SECONDS) 40-49 Last Admin: 01/06/19 09:19 Dose: 1,000 unit Heparin Sodium/Dextrose (Heparin Infusion -) 25,000 units in 500 mls @ 20 mls/ hr IVPB TITR [facility]; Protocol Last Titration: 01/06/19 09:22 Dose: 1,200 units/hr, 24 mls/hr Magnesium Hydroxide (Milk Of Magnesia -) 30 ml PO PRN PRN PRN Reason: CONSTIPATION Multivitamins/Minerals/Vitamin C (Tab-A-Vit -) 1 tab PO DAILY [facility] Last Admin: 01/06/19 09:20 Dose: 1 tab Ondansetron HCl (Zofran Injection) 4 mg IVPUSH Q6H PRN PRN Reason: NAUSEA Oxycodone HCl (Roxicodone -) 5 mg PO Q3H PRN PRN Reason: PAIN LEVEL 1-5 Last Admin: 01/06/19 12:32 Dose: 5 mg Oxycodone HCl (Roxicodone -) 10 mg PO Q3H PRN PRN Reason: PAIN LEVEL 6-10 Last Admin: 01/06/19 08:27 Dose: 10 mg Pantoprazole Sodium (Protonix -) 40 mg PO DAILY [facility] Last Admin: 01/06/19 09:20 Dose: 40 mg Senna/Docusate Sodium (Pericolace -) 2 tablet PO BID [facility] Last Admin: 01/06/19 09:20 Dose: 2 tablet - Objective Vital Signs: Vital Signs Temperature 97.8 F 01/06/19 10:00 Pulse Rate 84 01/06/19 10:00 Respiratory Rate 18 01/06/19 10:00 Blood Pressure 117/51 L 01/06/19 10:00 O2 Sat by Pulse Oximetry (%) 96 01/06/19 09:00 Constitutional: Yes: Well Nourished, Calm Eyes: Yes: WNL HENT: Yes: WNL Neck: Yes: WNL Cardiovascular: Yes: Regular Rate and Rhythm, S1, S2 Respiratory: Yes: CTA Bilaterally Gastrointestinal: Yes: Normal Bowel Sounds, Soft Extremities: Yes: WNL Edema: No Labs: CBC, BMP 01/06/19 05:30 01/06/19 05:30 Assessment/Plan Problem List - Problems (1) Hypoxemia during surgery Code(s): R09.02 - HYPOXEMIA; I97.88 - OTH INTRAOPERATIVE COMPLICATIONS OF THE CIRC SYS, NEC (2) Total knee replacement status Code(s): Z96.659 - PRESENCE OF UNSPECIFIED ARTIFICIAL KNEE JOINT (3) Chest pain Code(s): R07.9 - CHEST PAIN, UNSPECIFIED (4) Trigeminy Code(s): R00.8 - OTHER ABNORMALITIES OF HEART BEAT Assessment/Plan TACHYCARDIA/HYPOXEMIA/ VENTRICULAR TRIGEMINY S/P KNEE REPLACEMENT V/Q LOW PROBABILITY FOR PE/VENOUS DUPLEX NEGATIVE SUSPECTED OSAS IV HEPARIN/D/C ASA INCENTIVE HINA CONTINUE SUPPLEMENTAL O2 RENAL TO EVAL IN VIEW OF SOLITARY KIDNEY AND FEASIBILITY OF CTA (LOW CONTRAST LOAD) OUTPATIENT SLEEP STUDIES SLEEP SCREEN TONIGHT DR RANDLE
--- NOTE | 2019-01-06 14:40 | CONSULT ---
Consult Consult Specialty:: Nephrology Reason for Consultation:: KAITLIN - History of Present Illness Chief Complaint: pt s/p knee surgery History of Present Illness: Pt is a 43 year old make with pmhx of knee surgery who developed tachycardia and hypoxia. He was also noted to have trigemy during surgeyr. He had fever and hypoxia along with tachycardia post op. He was found to have elevated creatinine. There was a concern for PE so he was started on Heparin. I was called to evaluate him for CKD and for possible contrast. He denies medical history by he is a kidney donor, he donated a kidney to his mother in 2006. He denies dsyuria or hematuria. He did use nsaids in the past for pain. - Past Medical History Cardio/Vascular: Yes: Other (TRIGEMINY) Gastrointestinal: Yes: Constipation Renal/: Yes: Renal Inusuff, Other (SOLITARY KIDNEY, after donation) - Past Surgical History Past Surgical History: Yes: Joint Replacement - Alcohol/Substance Use Hx Alcohol Use: No - Smoking History Smoking history: Never smoked - Social History Usual Living Arrangement: With Spouse History of Recent Travel: No Home Medications - Allergies Allergies/Adverse Reactions: Allergies Allergy/AdvReac Type Severity Reaction Status Date / Time No Known Drug Allergies Allergy Verified 01/02/19 06:45 seasonal Allergy Uncoded 01/02/19 06:45 - Home Medications Home Medications: Ambulatory Orders NK [No Known Home Medication] 12/24/18 Family Disease History - Family Disease History Family History: Denies Review of Systems - Review of Systems Constitutional: reports: Malaise Eyes: reports: No Symptoms HENT: reports: No Symptoms Neck: reports: No Symptoms Cardiovascular: reports: Palpitations Respiratory: reports: No Symptoms Gastrointestinal: reports: No Symptoms Genitourinary: reports: No Symptoms Musculoskeletal: reports: Joint Pain, Joint Swelling Neurological: reports: No Symptoms Endocrine: reports: No Symptoms Hematology/Lymphatic: reports: No Symptoms Psychiatric: reports: No Symptoms Physical Exam Vital Signs: Vital Signs Temperature 97.8 F 01/06/19 10:00 Pulse Rate 84 01/06/19 10:00 Respiratory Rate 18 01/06/19 10:00 Blood Pressure 117/51 L 01/06/19 10:00 O2 Sat by Pulse Oximetry (%) 96 01/06/19 09:00 Constitutional: Yes: Calm Eyes: Yes: Conjunctiva Clear HENT: Yes: Atraumatic Neck: Yes: Supple Cardiovascular: Yes: S1, S2 Respiratory: Yes: CTA Bilaterally, On Nasal O2 Gastrointestinal: Yes: Soft, Abdomen, Obese Renal/: Yes: WNL Musculoskeletal: Yes: Other (knee pain) Edema: No Neurological: Yes: Oriented Psychiatric: Yes: Oriented Labs: CBC, BMP 01/06/19 05:30 01/06/19 05:30 Laboratory Tests 01/03/19 01/03/19 01/03/19 07:10 07:10 20:30 WBC 16.2 H ABG pH ABG pCO2 at Pt Temp ABG pO2 at Pt Temp ABG HCO3 ABG O2 Sat (Measured) Sodium 135 L Creatinine 1.5 H Urine Protein Trace Urine Blood Negative 01/04/19 01/04/19 01/05/19 08:00 08:00 09:36 WBC 18.2 H ABG pH ABG pCO2 at Pt Temp ABG pO2 at Pt Temp ABG HCO3 ABG O2 Sat (Measured) Sodium 137 137 Creatinine 1.6 H 1.4 H Urine Protein Urine Blood 01/05/19 01/06/19 01/06/19 11:55 05:30 05:30 WBC 13.1 H ABG pH 7.43 ABG pCO2 at Pt Temp 40.7 ABG pO2 at Pt Temp 89.4 ABG HCO3 26.3 ABG O2 Sat (Measured) 97.8 Sodium 144 Creatinine 1.3 Urine Protein Urine Blood Problem List - Problems (1) CKD (chronic kidney disease) Code(s): N18.9 - CHRONIC KIDNEY DISEASE, UNSPECIFIED (2) Hypoxemia during surgery Code(s): R09.02 - HYPOXEMIA; I97.88 - OTH INTRAOPERATIVE COMPLICATIONS OF THE CIRC SYS, NEC (3) Total knee replacement status Code(s): Z96.659 - PRESENCE OF UNSPECIFIED ARTIFICIAL KNEE JOINT Assessment/Plan Current Medications Generic Name Dose Route Start Last Admin Trade Name Freq PRN Reason Stop Dose Admin Acetaminophen 650 mg 01/03/19 18:00 01/06/19 11:56 Tylenol - PO 650 mg Q6H [facility] Administration Al Hydroxide/Mg Hydroxide 30 ml 01/02/19 11:13 Mylanta Oral Suspension - PO Q4H PRN DYSPEPSIA Diltiazem HCl 120 mg 01/04/19 21:15 01/06/19 09:20 Cardizem Cd - PO 120 mg DAILY [facility] Administration Ferrous Sulfate 325 mg 01/06/19 10:00 01/06/19 09:20 Feosol - PO 325 mg DAILY [facility] Administration Gabapentin 300 mg 01/02/19 22:00 01/06/19 09:20 Neurontin - PO 300 mg BID [facility] Administration Heparin Sodium (Porcine) 5,000 unit 01/06/19 01:47 Heparin - IVPUSH PRN PRN APTT (SECONDS) <40 Heparin Sodium (Porcine) 1,000 unit 01/06/19 01:47 01/06/19 09:19 Heparin - IVPUSH 1,000 unit PRN PRN Administration APTT (SECONDS) 40-49 Heparin Sodium/Dextrose 25,000 units in 500 mls @ 20 mls/hr 01/05/19 17:45 09:22 Heparin Infusion - IVPB 1,200 units/hr TITR [facility] 24 mls/hr Titration Protocol 1,000 UNITS/HR Magnesium Hydroxide 30 ml 01/02/19 11:13 Milk Of Magnesia - PO PRN PRN CONSTIPATION Multivitamins/Minerals/Vitamin C 1 tab 01/03/19 10:00 01/06/19 09:20 Tab-A-Vit - PO 1 tab DAILY [facility] Administration Ondansetron HCl 4 mg 01/02/19 11:13 Zofran Injection IVPUSH Q6H PRN NAUSEA Oxycodone HCl 5 mg 01/02/19 14:20 01/06/19 12:32 Roxicodone - PO 5 mg Q3H PRN Administration PAIN LEVEL 1-5 Oxycodone HCl 10 mg 01/02/19 14:20 01/06/19 08:27 Roxicodone - PO 10 mg Q3H PRN Administration PAIN LEVEL 6-10 Pantoprazole Sodium 40 mg 01/03/19 10:00 01/06/19 09:20 Protonix - PO 40 mg DAILY [facility] Administration Senna/Docusate Sodium 2 tablet 01/02/19 22:00 01/06/19 09:20 Pericolace - PO 2 tablet BID [facility] Administration Impression 1. CKD vs KAITLIN 2. r/o PE 3. obesity 4. hypoxia 5. s/p knee surgery Plan - check renal ultrasound - repeat ua - check prt to modeling and simulation analyst ratio - discussed with pulm, they do not want a ct scan with contrast at this time. Pt will get an echo first - there is a risk for pankaj, recommen ns at 75 cc for [address] angio, if decision made to do it, along with mucomyst 600 my po q 12 hrs for 2 doses before and 2 doses after scan - pt understands risks associated with contrast
--- NOTE | 2019-01-06 15:23 | PN ---
Progress Note, Physician Chief Complaint: left knee pain, fever History of Present Illness: 43yo man with left knee pain for the past 3 years came in for knee replacement. denies chest pain, palpitations, nausea, vomiting, diarrhea. - Current Medication List Current Medications: Active Medications Acetaminophen (Tylenol -) 650 mg PO Q6H [facility] Last Admin: 01/06/19 11:56 Dose: 650 mg Al Hydroxide/Mg Hydroxide (Mylanta Oral Suspension -) 30 ml PO Q4H PRN PRN Reason: DYSPEPSIA Diltiazem HCl (Cardizem Cd -) 120 mg PO DAILY [facility] Last Admin: 01/06/19 09:20 Dose: 120 mg Ferrous Sulfate (Feosol -) 325 mg PO DAILY [facility] Last Admin: 01/06/19 09:20 Dose: 325 mg Gabapentin (Neurontin -) 300 mg PO BID [facility] Last Admin: 01/06/19 09:20 Dose: 300 mg Heparin Sodium (Porcine) (Heparin -) 5,000 unit IVPUSH PRN PRN PRN Reason: APTT (SECONDS) <40 Heparin Sodium (Porcine) (Heparin -) 1,000 unit IVPUSH PRN PRN PRN Reason: APTT (SECONDS) 40-49 Last Admin: 01/06/19 09:19 Dose: 1,000 unit Heparin Sodium/Dextrose (Heparin Infusion -) 25,000 units in 500 mls @ 20 mls/ hr IVPB TITR [facility]; Protocol Last Titration: 01/06/19 09:22 Dose: 1,200 units/hr, 24 mls/hr Magnesium Hydroxide (Milk Of Magnesia -) 30 ml PO PRN PRN PRN Reason: CONSTIPATION Multivitamins/Minerals/Vitamin C (Tab-A-Vit -) 1 tab PO DAILY [facility] Last Admin: 01/06/19 09:20 Dose: 1 tab Ondansetron HCl (Zofran Injection) 4 mg IVPUSH Q6H PRN PRN Reason: NAUSEA Oxycodone HCl (Roxicodone -) 5 mg PO Q3H PRN PRN Reason: PAIN LEVEL 1-5 Last Admin: 01/06/19 12:32 Dose: 5 mg Oxycodone HCl (Roxicodone -) 10 mg PO Q3H PRN PRN Reason: PAIN LEVEL 6-10 Last Admin: 01/06/19 08:27 Dose: 10 mg Pantoprazole Sodium (Protonix -) 40 mg PO DAILY [facility] Last Admin: 01/06/19 09:20 Dose: 40 mg Senna/Docusate Sodium (Pericolace -) 2 tablet PO BID [facility] Last Admin: 01/06/19 09:20 Dose: 2 tablet - Objective Vital Signs: Vital Signs Temperature 97.8 F 01/06/19 10:00 Pulse Rate 84 01/06/19 10:00 Respiratory Rate 18 01/06/19 10:00 Blood Pressure 117/51 L 01/06/19 10:00 O2 Sat by Pulse Oximetry (%) 96 01/06/19 09:00 Constitutional: Yes: Well Nourished, Obese Eyes: Yes: WNL HENT: Yes: WNL Neck: Yes: WNL Cardiovascular: Yes: WNL Respiratory: Yes: Diminished Gastrointestinal: Yes: WNL Genitourinary: Yes: WNL Musculoskeletal: Yes: WNL, Joint Stiffness Extremities: Yes: WNL Edema: No Peripheral Pulses WNL: Yes Integumentary: Yes: WNL Wound/Incision: Yes: Clean/Dry, Well Approximated, Dressing Dry and Intact Neurological: Yes: WNL Labs: CBC, BMP 01/06/19 05:30 01/06/19 05:30 Assessment/Plan 43 yo man with left knee OA S/P left total knee replacement. cont pain management. incentive spirometry. on aspirin, neurontin, oxycodone. -Pt developed fever, hypoxemia, tachycardia POST-OP: goldstein-cultured. one dose of zosyn, vanco given. PE and DVT workup ongoing, heparin drip resumed. cardiology and pulmonary eval appreciated. viral panel pending. O2 via NC. keep O2>92%. Pt was able to walk around without O2 today. TTE today. -cont stool softeners for opioid induced constipation. -morbid obesity: weight loss and healthier lifestyle advised. -CKD: kidney donor. will monitor. avoid nephrotoxic agents when possible. renal eval appreciated. -acute on chronic iron deficiency anemia: will monitor. --PT/OT/OOB as tolerated -oral diet; well tolerated -assessment and plan discussed with pt and his at bedside.
--- NOTE | 2019-01-06 15:41 | ECHO ---
Name: MAGDA MAURICIO Exam:Adult Echocardiogram Study Date: 01/06/2019 02:44 PM Age: 43 yrs Reason For Study: TACHYCARDIA PVCS Height: 66 in Weight: 273 lb BSA: 2.3 m2 MMode/2D Measurements & Calculations IVSd: 0.90 cm Ao root diam: 2.6 cm LVIDd: 4.5 cm LA dimension: 3.9 cm LVIDs: 2.9 cm LVPWd: 0.96 cm EDV(Teich): 94.1 ml LVOT diam: 2.2 cm ESV(Teich): 31.3 ml Doppler Measurements & Calculations MV E max phillip: 80.5 cm/sec Ao V2 max: 185.9 cm/sec MV A max phillip: 77.0 cm/sec Ao max P.8 mmHg MV E/A: 1.0 Ao V2 mean: 119.8 cm/sec MV dec time: 0.18 sec Ao mean P.0 mmHg Ao V2 VTI: 28.7 cm NISREEN(I,D): 2.2 cm2 NISREEN(V,D): 1.7 cm2 LV V1 max P.9 mmHg SV(LVOT): 62.7 ml LV V1 mean P.5 mmHg LV V1 max: 84.7 cm/sec LV V1 mean: 56.8 cm/sec LV V1 VTI: 17.2 cm TR max phillip: 276.9 cm/sec Med Peak E' Phillip: 11.2 cm/sec TR max P.8 mmHg Med E/e': 7.2 Lat Peak E' Phillip: 14.2 cm/sec Lat E/e': 5.7 Procedure A complete two-dimensional transthoracic echocardiogram was performed (2D, M-mode, Doppler and color flow Doppler). The patient had frequent PVCs during the exam. Left Ventricle The left ventricular size, thickness and function are normal. Ejection Fraction = 65%. The transmitra l spectral Doppler flow pattern is normal for age. The left ventricular wall motion is normal. Right Ventricle The right ventricle is normal in size and function. Atria Normal left and right atrial size and function. Mitral Valve The mitral valve is normal in structure and function. Tricuspid Valve The tricuspid valve is normal in structure and function. There is Trace to mild tricuspid regurgitati on. Right ventricular systolic pressure is 31 mmhg. Aortic Valve The aortic valve is normal in structure and function. Pulmonic Valve The pulmonic valve is normal in structure and function. Trace pulmonic valvular regurgitation. Great Vessels The aortic root is normal size. Pericardium/Pleura There is no pericardial effusion. There is no pleural effusion. Interpretation Summary The left ventricular size, thickness and function are normal Ejection Fraction = 65%. The left ventricular wall motion is normal. The right ventricle is normal in size and function. Normal left and right atrial size and function. There is Trace to mild tricuspid regurgitation. Right ventricular systolic pressure is 31 mmhg. Trace pulmonic valvular regurgitation. MD Dav Abdalla 01/06/2019 03:41 PM
[2019-01-07] MEDS: ACETAMINOPHEN 325 MG TABLET (FP) PO SCH ×6 (00:29→22:59)
[2019-01-07] MEDS: HEPARIN INFUSION - 25,000 UNITS/500 ML INFUS.BAG IVPB SCH ×3 (01:50→18:40)
[2019-01-07 07:40] LABS: BLOOD UREA NITROGEN 10.8 mg/dL (7-18); CALCIUM 8.2 mg/dL (8.5-10.1); CREATININE 1.2 mg/dL (0.55-1.3); POTASSIUM 3.8 mmol/L (3.5-5.1)
[2019-01-07] MEDS: SODIUM CHLORIDE 1,000 ML IV SCH ×2 (07:42→22:00)
[2019-01-07 08:18] LABS: BASO % 0.3 % (0-2.0); EOS % 3.5 % (0-4.5); HEMATOCRIT 28.5 % (35.4-49); HEMOGLOBIN 9.3 GM/dL (11.7-16.9); LYMPH % 23.2 % (8-40); MCH 31.7 pg (25.7-33.7); MCHC 32.6 g/dl (32.0-35.9); MEAN CELL VOLUME 97.4 fl (80-96); MEAN PLT VOLUME 8.3 fl (7.5-11.1); MONO % 8.6 % (3.8-10.2); NEUT % 64.4 % (42.8-82.8); PLATELET COUNT 298 K/MM3 (134-434); RBC 2.92 M/mm3 (4.00-5.60); RDW 13.3 % (11.9-15.9); WHITE BLOOD COUNT 13.9 K/mm3 (4.0-10.0)
--- NOTE | 2019-01-07 09:10 | PN ---
Progress Note (short form) - Note Progress Note: POD 5, s/p L TKR Pt seen and examined. Reports he is feeling well. Was oob yesterday with PT without oxygen, pt reports he was layign in bed for approx 20 mins without O2 before RN reports desatting to 88% and oxygen was put back in place. Voiding without issue, tolerating po. Denies cp/sob, n/v/d. Vital Signs Temp 98.4 F 01/07/19 06:00 Pulse 94 H 01/07/19 06:00 Resp 20 01/07/19 06:00 BP 143/77 01/07/19 06:00 Pulse Ox 95 01/06/19 21:00 Intake & Output 01/06/19 01/06/19 01/07/19 11:59 23:59 11:59 Intake Total 714 830 570 Output Total 800 Balance 714 30 570 Intake: IV 234 330 HEPARIN INFUSION - 25,000 234 330 units In 500 ml @ 1,000 UNITS/HR 20 mls/hr IVPB TITR [facility] Rx#:[id number] Oral 480 830 240 Output: Urine 800 Void 800 Other: Voiding Method Urinal Urinal # Unmeasured Voids Void 2 2 2 # Bowel Movements 1 CBC, BMP 01/07/19 06:20 01/07/19 06:20 Gen: awake, alert, nad with family member bedside Resp: cta anteriorly b/l CV: rrr, s1s2 LEs: Dressing in place with moderate serosanguinous drainage throughout. Calf and thigh swollen, compartments soft, minimal ttp. B/L les 5/5 PF/DF/EHL/FHL, SILT B/L A/P: 43 y/o M w/ PMHx donor nephrectomy (1996), OA, now POD 5 s/p L TKR c/b post op hypoxia/trigeminey concerning for PE VQ (01/04): low probability of pe Venous Duplex (01/04): Evaluation of the left PTV is limited. There appears to be a small amount of flow within the vein, however, the vein could not be compressed and thrombus within this vessel cannot be excluded. Afebile, remains hypoxic on RA H and H relatively stable, wbc trending up slightly (13.9 today from 13.1 yesterday) Remains on 3L Oxygen via MD Plan for non contrast chest ct today per Pulmonology, possible cta later today Continue Heparin gtt, monitor ptt Repeat venous duplex lle ordered Incentive spirometry encouraged (visualized pt using, able to get to 2500) OOB with PT as tolerated Monitor VS and pulse ox Continue Oxygen as needed Continue telemetry monitoring All drugs to be renally dosed, avoid NSAIDS
[2019-01-07] MEDS ORDERED: OCULAR LUBRICANT OPHTHALMIC OINTMENT 7 GM TUBE NR PRN (09:29)
[2019-01-07] MEDS ORDERED: PT OWN MED DRAWER 7, Y5N ONE (09:58)
[2019-01-07] MEDS: SENNOSIDES/DOCUSATE COMBO (SENNA PLUS) TABLET (UD) PO SCH ×2 (10:02→22:56)
[2019-01-07] MEDS: PANTOPRAZOLE 40 MG TABLET (FP) PO SCH (10:02)
[2019-01-07] MEDS: MULTIVITAMINS (DAILY MVI) TABLET (FP) PO SCH (10:02)
[2019-01-07] MEDS: GABAPENTIN 300 MG CAPSULE (FP) PO SCH ×2 (10:02→22:56)
[2019-01-07] MEDS: FERROUS SO4 325 MG TABLET (FP) PO SCH (10:02)
--- NOTE | 2019-01-07 10:18 | PN ---
Progress Note, Physician History of Present Illness: pulmonary alert,still hypoxic on ra,-cp,tachycardia. echo mild pulmonary htn rvsp 31.sleep screen mild sammie ahi 12.6 - Current Medication List Current Medications: Active Medications Acetaminophen (Tylenol -) 650 mg PO Q6H [facility] Last Admin: 01/07/19 06:26 Dose: 650 mg Al Hydroxide/Mg Hydroxide (Mylanta Oral Suspension -) 30 ml PO Q4H PRN PRN Reason: DYSPEPSIA Artificial Tears (Lacri-Lube Eye Ointment -) 1 applic NR HS PRN PRN Reason: DRY EYES Diltiazem HCl (Cardizem Cd -) 120 mg PO DAILY [facility] Last Admin: 01/07/19 10:02 Dose: 120 mg Ferrous Sulfate (Feosol -) 325 mg PO DAILY [facility] Last Admin: 01/07/19 10:02 Dose: 325 mg Gabapentin (Neurontin -) 300 mg PO BID [facility] Last Admin: 01/07/19 10:02 Dose: 300 mg Heparin Sodium (Porcine) (Heparin -) 5,000 unit IVPUSH PRN PRN PRN Reason: APTT (SECONDS) <40 Last Admin: 01/07/19 01:50 Dose: 5,000 unit Heparin Sodium (Porcine) (Heparin -) 1,000 unit IVPUSH PRN PRN PRN Reason: APTT (SECONDS) 40-49 Last Admin: 01/06/19 18:59 Dose: 1,000 unit Heparin Sodium/Dextrose (Heparin Infusion -) 25,000 units in 500 mls @ 20 mls/ hr IVPB [facility]; Protocol Last Admin: 01/07/19 07:38 Dose: Not Given Magnesium Hydroxide (Milk Of Magnesia -) 30 ml PO PRN PRN PRN Reason: CONSTIPATION Multivitamins/Minerals/Vitamin C (Tab-A-Vit -) 1 tab PO DAILY [facility] Last Admin: 01/07/19 10:02 Dose: 1 tab Ondansetron HCl (Zofran Injection) 4 mg IVPUSH Q6H PRN PRN Reason: NAUSEA Oxycodone HCl (Roxicodone -) 5 mg PO Q3H PRN PRN Reason: PAIN LEVEL 1-5 Last Admin: 01/06/19 12:32 Dose: 5 mg Oxycodone HCl (Roxicodone -) 10 mg PO Q3H PRN PRN Reason: PAIN LEVEL 6-10 Last Admin: 01/06/19 08:27 Dose: 10 mg Pantoprazole Sodium (Protonix -) 40 mg PO DAILY [facility] Last Admin: 01/07/19 10:02 Dose: 40 mg Senna/Docusate Sodium (Pericolace -) 2 tablet PO BID [facility] Last Admin: 01/07/19 10:02 Dose: 2 tablet - Objective Vital Signs: Vital Signs Temperature 98.5 F 01/07/19 10:00 Pulse Rate 96 H 01/07/19 10:00 Respiratory Rate 01/07/19 10:00 Blood Pressure 127/62 01/07/19 10:00 O2 Sat by Pulse Oximetry (%) 95 01/06/19 21:00 Constitutional: Yes: Well Nourished, Calm Eyes: Yes: WNL HENT: Yes: WNL Neck: Yes: WNL Cardiovascular: Yes: Regular Rate and Rhythm, S1, S2 Respiratory: Yes: CTA Bilaterally Gastrointestinal: Yes: Normal Bowel Sounds, Soft Extremities: Yes: WNL Edema: No Labs: CBC, BMP 01/07/19 06:20 01/07/19 06:20 Assessment/Plan Problem List - Problems (1) Hypoxemia during surgery Code(s): R09.02 - HYPOXEMIA; I97.88 - OTH INTRAOPERATIVE COMPLICATIONS OF THE CIRC SYS, NEC (2) Total knee replacement status Code(s): Z96.659 - PRESENCE OF UNSPECIFIED ARTIFICIAL KNEE JOINT (3) Chest pain Code(s): R07.9 - CHEST PAIN, UNSPECIFIED (4) Trigeminy Code(s): R00.8 - OTHER ABNORMALITIES OF HEART BEAT Assessment/Plan TACHYCARDIA/HYPOXEMIA/ VENTRICULAR TRIGEMINY S/P KNEE REPLACEMENT V/Q LOW PROBABILITY FOR PE/VENOUS DUPLEX NEGATIVE SUSPECTED OSAS IV HEPARIN INCENTIVE HINA CONTINUE SUPPLEMENTAL O2 OUTPATIENT SLEEP STUDIES CHEST CT W/O CONTRAST IF NORMAL WITH ORDER CHEST CTA TO R/O PE DR RANDLE
[2019-01-07] MEDS: HEPARIN NA (PORCINE) 5,000 UNITS/ML 1ML VIAL IVPUSH PRN ×2 (10:46→18:34)
--- NOTE | 2019-01-07 10:50 | PN ---
Progress Note, Physician History of Present Illness: Pt seen and examine at bedside. He is awake and alert. He denies shortness of breath. - Current Medication List Current Medications: Active Medications Acetaminophen (Tylenol -) 650 mg PO Q6H [facility] Last Admin: 01/07/19 06:26 Dose: 650 mg Al Hydroxide/Mg Hydroxide (Mylanta Oral Suspension -) 30 ml PO Q4H PRN PRN Reason: DYSPEPSIA Artificial Tears (Lacri-Lube Eye Ointment -) 1 applic NR HS PRN PRN Reason: DRY EYES Diltiazem HCl (Cardizem Cd -) 120 mg PO DAILY [facility] Last Admin: 01/07/19 10:02 Dose: 120 mg Ferrous Sulfate (Feosol -) 325 mg PO DAILY [facility] Last Admin: 01/07/19 10:02 Dose: 325 mg Gabapentin (Neurontin -) 300 mg PO BID [facility] Last Admin: 01/07/19 10:02 Dose: 300 mg Heparin Sodium (Porcine) (Heparin -) 5,000 unit IVPUSH PRN PRN PRN Reason: APTT (SECONDS) <40 Last Admin: 01/07/19 01:50 Dose: 5,000 unit Heparin Sodium (Porcine) (Heparin -) 1,000 unit IVPUSH PRN PRN PRN Reason: APTT (SECONDS) 40-49 Last Admin: 01/06/19 18:59 Dose: 1,000 unit Heparin Sodium/Dextrose (Heparin Infusion -) 25,000 units in 500 mls @ 20 mls/ hr IVPB TITR [facility]; Protocol Last Admin: 01/07/19 07:38 Dose: Not Given Magnesium Hydroxide (Milk Of Magnesia -) 30 ml PO PRN PRN PRN Reason: CONSTIPATION Multivitamins/Minerals/Vitamin C (Tab-A-Vit -) 1 tab PO DAILY [facility] Last Admin: 01/07/19 10:02 Dose: 1 tab Ondansetron HCl (Zofran Injection) 4 mg IVPUSH Q6H PRN PRN Reason: NAUSEA Oxycodone HCl (Roxicodone -) 5 mg PO Q3H PRN PRN Reason: PAIN LEVEL 1-5 Last Admin: 01/06/19 12:32 Dose: 5 mg Oxycodone HCl (Roxicodone -) 10 mg PO Q3H PRN PRN Reason: PAIN LEVEL 6-10 Last Admin: 01/06/19 08:27 Dose: 10 mg Pantoprazole Sodium (Protonix -) 40 mg PO DAILY [facility] Last Admin: 01/07/19 10:02 Dose: 40 mg Senna/Docusate Sodium (Pericolace -) 2 tablet PO BID [facility] Last Admin: 01/07/19 10:02 Dose: 2 tablet - Objective Vital Signs: Vital Signs Temperature 98.5 F 01/07/19 10:00 Pulse Rate 96 H 01/07/19 10:00 Respiratory Rate 01/07/19 10:00 Blood Pressure 127/62 01/07/19 10:00 O2 Sat by Pulse Oximetry (%) 95 01/06/19 21:00 Constitutional: Yes: Calm Eyes: Yes: Conjunctiva Clear HENT: Yes: Atraumatic Neck: Yes: Supple Cardiovascular: Yes: S1, S2 Respiratory: Yes: CTA Bilaterally Gastrointestinal: Yes: Soft, Abdomen, Obese Genitourinary: Yes: WNL Musculoskeletal: Yes: WNL Edema: No Integumentary: Yes: WNL, Tattoos Neurological: Yes: Oriented Psychiatric: Yes: Oriented Labs: CBC, BMP 01/07/19 06:20 01/07/19 06:20 Problem List - Problems (1) CKD (chronic kidney disease) Code(s): N18.9 - CHRONIC KIDNEY DISEASE, UNSPECIFIED (2) Hypoxemia during surgery Code(s): R09.02 - HYPOXEMIA; I97.88 - OTH INTRAOPERATIVE COMPLICATIONS OF THE CIRC SYS, NEC (3) Total knee replacement status Code(s): Z96.659 - PRESENCE OF UNSPECIFIED ARTIFICIAL KNEE JOINT Assessment/Plan Current Medications Generic Name Dose Route Start Last Admin Trade Name Freq PRN Reason Stop Dose Admin Acetaminophen 650 mg 01/03/19 18:00 01/07/19 06:26 Tylenol - PO 650 mg Q6H [facility] Administration Al Hydroxide/Mg Hydroxide 30 ml 01/02/19 11:13 Mylanta Oral Suspension - PO Q4H PRN DYSPEPSIA Artificial Tears 1 applic 01/07/19 09:29 Lacri-Lube Eye Ointment - NR HS PRN DRY EYES Diltiazem HCl 120 mg 01/04/19 21:15 01/07/19 10:02 Cardizem Cd - PO 120 mg DAILY [facility] Administration Ferrous Sulfate 325 mg 01/06/19 10:00 01/07/19 10:02 Feosol - PO 325 mg DAILY [facility] Administration Gabapentin 300 mg 01/02/19 22:00 01/07/19 10:02 Neurontin - PO 300 mg BID [facility] Administration Heparin Sodium (Porcine) 5,000 unit 01/06/19 01:47 01/07/19 01:50 Heparin - IVPUSH 5,000 unit PRN PRN Administration APTT (SECONDS) <40 Heparin Sodium (Porcine) 1,000 unit 01/06/19 01:47 01/07/19 10:46 Heparin - IVPUSH 1,000 unit PRN PRN Administration APTT (SECONDS) 40-49 Heparin Sodium/Dextrose 25,000 units in 500 mls @ 20 mls/hr 01/05/19 17:45 10:48 Heparin Infusion - IVPB 1,550 units/hr TITR [facility] 31 mls/hr Titration Protocol 1,000 UNITS/HR Magnesium Hydroxide 30 ml 01/02/19 11:13 Milk Of Magnesia - PO PRN PRN CONSTIPATION Multivitamins/Minerals/Vitamin C 1 tab 01/03/19 10:00 01/07/19 10:02 Tab-A-Vit - PO 1 tab DAILY [facility] Administration Ondansetron HCl 4 mg 01/02/19 11:13 Zofran Injection IVPUSH Q6H PRN NAUSEA Oxycodone HCl 5 mg 01/02/19 14:20 01/06/19 12:32 Roxicodone - PO 5 mg Q3H PRN Administration PAIN LEVEL 1-5 Oxycodone HCl 10 mg 01/02/19 14:20 01/06/19 08:27 Roxicodone - PO 10 mg Q3H PRN Administration PAIN LEVEL 6-10 Pantoprazole Sodium 40 mg 01/03/19 10:00 01/07/19 10:02 Protonix - PO 40 mg DAILY [facility] Administration Senna/Docusate Sodium 2 tablet 01/02/19 22:00 01/07/19 10:02 Pericolace - PO 2 tablet BID [facility] Administration Impression 1. CKD vs KAITLIN 2. r/o PE 3. obesity 4. hypoxia 5. s/p knee surgery 6. likely sleep apnea Plan - follow urine studies and renal ultrasound - renal function is improving - pt not going for cta at this point, he is getting a non contrast ct - of decision is made to get cta, please prep with saline - discussed with pulmonary team
--- NOTE | 2019-01-07 11:33 | PN ---
Progress Note (short form) - Note Progress Note: s: no chest pain, palps, dizziness, dyspnea Current Medications Acetaminophen (Tylenol -) 650 mg PO Q6H [facility] Last Admin: 01/07/19 06:26 Dose: 650 mg Al Hydroxide/Mg Hydroxide (Mylanta Oral Suspension -) 30 ml PO Q4H PRN PRN Reason: DYSPEPSIA Artificial Tears (Lacri-Lube Eye Ointment -) 1 applic NR HS PRN PRN Reason: DRY EYES Diltiazem HCl (Cardizem Cd -) 120 mg PO DAILY [facility] Last Admin: 01/07/19 10:02 Dose: 120 mg Ferrous Sulfate (Feosol -) 325 mg PO DAILY [facility] Last Admin: 01/07/19 10:02 Dose: 325 mg Gabapentin (Neurontin -) 300 mg PO BID [facility] Last Admin: 01/07/19 10:02 Dose: 300 mg Heparin Sodium (Porcine) (Heparin -) 5,000 unit IVPUSH PRN PRN PRN Reason: APTT (SECONDS) <40 Last Admin: 01/07/19 01:50 Dose: 5,000 unit Heparin Sodium (Porcine) (Heparin -) 1,000 unit IVPUSH PRN PRN PRN Reason: APTT (SECONDS) 40-49 Last Admin: 01/07/19 10:46 Dose: 1,000 unit Heparin Sodium/Dextrose (Heparin Infusion -) 25,000 units in 500 mls @ 20 mls/ hr IVPB TITR [facility]; Protocol Last Titration: 01/07/19 10:48 Dose: 1,550 units/hr, 31 mls/hr Magnesium Hydroxide (Milk Of Magnesia -) 30 ml PO PRN PRN PRN Reason: CONSTIPATION Multivitamins/Minerals/Vitamin C (Tab-A-Vit -) 1 tab PO DAILY [facility] Last Admin: 01/07/19 10:02 Dose: 1 tab Ondansetron HCl (Zofran Injection) 4 mg IVPUSH Q6H PRN PRN Reason: NAUSEA Oxycodone HCl (Roxicodone -) 5 mg PO Q3H PRN PRN Reason: PAIN LEVEL 1-5 Last Admin: 01/06/19 12:32 Dose: 5 mg Oxycodone HCl (Roxicodone -) 10 mg PO Q3H PRN PRN Reason: PAIN LEVEL 6-10 Last Admin: 01/06/19 08:27 Dose: 10 mg Pantoprazole Sodium (Protonix -) 40 mg PO DAILY [facility] Last Admin: 01/07/19 10:02 Dose: 40 mg Senna/Docusate Sodium (Pericolace -) 2 tablet PO BID [facility] Last Admin: 01/07/19 10:02 Dose: 2 tablet Vital Signs Period Temp Pulse Resp BP Sys/Hill Pulse Ox Last 24 Hr 98.3 F-99.3 F 94-114 18-20 127-143/54-77 95 Constitutional: Yes: Well Nourished, No Distress, Calm Eyes: Yes: Conjunctiva Clear, EOM Intact HENT: Yes: Atraumatic, Normocephalic Neck: Yes: Supple, Trachea Midline Respiratory: Yes: Regular, CTA Bilaterally Gastrointestinal: Yes: Normal Bowel Sounds, Soft Cardiovascular: Yes: Tachycardia JVD: No Carotid Bruit: No PMI: Non-Displaced Heart Sounds: Yes: S1, S2 Murmur: No: Systolic Murmur Musculoskeletal: No: Back Pain Extremities: No: Cold Edema: Yes Edema: LLE: Trace Peripheral Pulses WNL: Yes Peripheral Pulses: 2+ Left Doralis Pedis, 2+ Right Dorsalis Pedis Integumentary: No: Jaundice Neurological: Yes: Alert, Oriented Assessment/Plan tele: sinus, sinus tachycardia EKG: sinus tachycardia frequent PVCs VQ scan: low probability for PE sinus tachycardia, frequent PVCs, trigeminy - echo nl LV/RV function - may be related to underlying fever, anemia (hgb 11->8.8), pain - manage per primary, surgery - cont diltiazem hypoxia - echo shows nl LV/RV function, PASP 31 mmHg - may have underlying sleep apnea - VQ scan neg for PE, however symptoms suggestive of PE and noncompressible L posterior tibial vein, renal consulted to evaluate for CTA chest given history of one kidney - deferring for now, continuing AC per pulm and plan for noncon CT - manage per pulm s/p L TKR - manage per ortho CKD - stable, history of kidney donation - renal following
[2019-01-07 12:04] LABS: URINE APPEARANCE CLEAR; URINE BILIRUBIN NEGATIVE (NEGATIVE); URINE COLOR YELLOW; URINE GLUCOSE (UA) NEGATIVE (NEGATIVE); URINE KETONE NEGATIVE (NEGATIVE); URINE LEUK ESTERASE NEGATIVE (NEGATIVE); URINE NITRITE NEGATIVE (NEGATIVE); URINE PROTEIN NEGATIVE (NEGATIVE)
[2019-01-07 12:10] LABS: RATIO URIN PROTEIN/URIN CREAT 0.17 MG/DL
--- NOTE | 2019-01-07 13:02 | PATH ---
Surgical Pathology Report Patient Name: MAGDA MAURICIO Med. Rec. #: [id number] /Age/Gender: 1975 (Age: 43) / M Account: <[id number]> Location: [facility] Taken: 01/02/2019 Received: 01/02/2019 Reported: 01/07/2019 Physicians: Deep West M.D. Specimen(s) Received BONES LEFT KNEE Clinical History Left knee osteoarthritis Final Diagnosis BONE, LEFT KNEE, TOTAL KNEE REPLACEMENT: DEGENERATIVE JOINT DISEASE. Electronically Signed Sandra Olivo M.D. Gross Description Received in formalin labeled "bone left knee," is a 13.0 x 10.5 x 2.8 cm aggregate of multiple portions of bone and soft tissue. The tibial plateau measures 7.8 x 5.5 x 2.5 cm. There are multiple areas of eburnation present, measuring up to 2.6 cm in greatest dimension. The remaining articular surfaces are bradley-yellow and focally granular. The underlying trabecular bone is yellow and hard. Whale [employer]er sections are submitted in one cassette, following decalcification. 01/05/2019 [facility]01/05/2019
--- NOTE | 2019-01-07 16:16 | PN ---
Progress Note, Physician Chief Complaint: left knee pain, fever History of Present Illness: 43yo man with left knee pain for the past 3 years came in for knee replacement. denies chest pain, palpitations, nausea, vomiting, diarrhea. - Current Medication List Current Medications: Active Medications Acetaminophen (Tylenol -) 650 mg PO Q6H [facility] Last Admin: 01/07/19 13:31 Dose: 650 mg Al Hydroxide/Mg Hydroxide (Mylanta Oral Suspension -) 30 ml PO Q4H PRN PRN Reason: DYSPEPSIA Artificial Tears (Lacri-Lube Eye Ointment -) 1 applic NR HS PRN PRN Reason: DRY EYES Diltiazem HCl (Cardizem Cd -) 120 mg PO DAILY [facility] Last Admin: 01/07/19 10:02 Dose: 120 mg Ferrous Sulfate (Feosol -) 325 mg PO DAILY [facility] Last Admin: 01/07/19 10:02 Dose: 325 mg Gabapentin (Neurontin -) 300 mg PO BID [facility] Last Admin: 01/07/19 10:02 Dose: 300 mg Heparin Sodium (Porcine) (Heparin -) 5,000 unit IVPUSH PRN PRN PRN Reason: APTT (SECONDS) <40 Last Admin: 01/07/19 01:50 Dose: 5,000 unit Heparin Sodium (Porcine) (Heparin -) 1,000 unit IVPUSH PRN PRN PRN Reason: APTT (SECONDS) 40-49 Last Admin: 01/07/19 10:46 Dose: 1,000 unit Heparin Sodium/Dextrose (Heparin Infusion -) 25,000 units in 500 mls @ 20 mls/ hr IVPB TITR [facility]; Protocol Last Titration: 01/07/19 10:48 Dose: 1,550 units/hr, 31 mls/hr Magnesium Hydroxide (Milk Of Magnesia -) 30 ml PO PRN PRN PRN Reason: CONSTIPATION Multivitamins/Minerals/Vitamin C (Tab-A-Vit -) 1 tab PO DAILY [facility] Last Admin: 01/07/19 10:02 Dose: 1 tab Ondansetron HCl (Zofran Injection) 4 mg IVPUSH Q6H PRN PRN Reason: NAUSEA Oxycodone HCl (Roxicodone -) 5 mg PO Q3H PRN PRN Reason: PAIN LEVEL 1-5 Last Admin: 01/06/19 12:32 Dose: 5 mg Oxycodone HCl (Roxicodone -) 10 mg PO Q3H PRN PRN Reason: PAIN LEVEL 6-10 Last Admin: 01/06/19 08:27 Dose: 10 mg Pantoprazole Sodium (Protonix -) 40 mg PO DAILY [facility] Last Admin: 01/07/19 10:02 Dose: 40 mg Senna/Docusate Sodium (Pericolace -) 2 tablet PO BID [facility] Last Admin: 01/07/19 10:02 Dose: 2 tablet - Objective Vital Signs: Vital Signs Temperature 99.1 F 01/07/19 14:00 Pulse Rate 98 H 01/07/19 14:00 Respiratory Rate 01/07/19 10:00 Blood Pressure 150/78 01/07/19 14:00 O2 Sat by Pulse Oximetry (%) 95 01/07/19 09:00 Constitutional: Yes: Well Nourished, No Distress Eyes: Yes: WNL HENT: Yes: WNL Neck: Yes: WNL Cardiovascular: Yes: Tachycardia Respiratory: Yes: Diminished Gastrointestinal: Yes: WNL Genitourinary: Yes: WNL Musculoskeletal: Yes: Joint Stiffness Extremities: Yes: WNL Edema: No Peripheral Pulses WNL: Yes Integumentary: Yes: WNL Wound/Incision: Yes: Clean/Dry, Well Approximated, Dressing Dry and Intact Neurological: Yes: WNL Psychiatric: Yes: WNL Labs: CBC, BMP 01/07/19 06:20 01/07/19 06:20 Assessment/Plan 43 yo man with left knee OA S/P left total knee replacement. cont pain management. incentive spirometry. on aspirin, neurontin, oxycodone. -Pt developed fever, hypoxemia, tachycardia POST-OP: goldstein-cultured. one dose of zosyn, vanco given. PE and DVT workup ongoing, heparin drip resumed. will get CTA chest as clinical suspicion for embolism is still high. cardiology and pulmonary eval appreciated. O2 via NC. keep O2>92%. TTE WNL. -cont stool softeners for opioid induced constipation. -morbid obesity: weight loss and healthier lifestyle advised. -CKD: kidney donor. will monitor. avoid nephrotoxic agents when possible. renal eval appreciated. will need IV fluids and mucomyst for CTA. -acute on chronic iron deficiency anemia: will monitor. --PT/OT/OOB as tolerated -oral diet; well tolerated -assessment and plan discussed with pt and his at bedside. he will be discharged on eliquis for 3 montyhs and f/u with Dr Lopez outpatient.
[2019-01-07] MEDS: ACETYLCYSTEINE 20% 200MG/ML 30 ML VIAL *FOR ORAL / INH USE ONLY PO SCH (21:09)
[2019-01-08] MEDS ORDERED: PT OWN MED DRAWER 7, Y5N ONE ×2 (00:10→12:53)
[2019-01-08] MEDS: HEPARIN NA (PORCINE) 5,000 UNITS/ML 1ML VIAL IVPUSH PRN (03:31)
[2019-01-08] MEDS: HEPARIN INFUSION - 25,000 UNITS/500 ML INFUS.BAG IVPB SCH ×2 (03:32→17:26)
[2019-01-08] MEDS: ACETAMINOPHEN 325 MG TABLET (FP) PO SCH ×4 (06:23→23:35)
[2019-01-08 09:17] LABS: HEMATOCRIT 26.6 % (35.4-49); HEMOGLOBIN 8.7 GM/dL (11.7-16.9); MCH 31.9 pg (25.7-33.7); MCHC 32.8 g/dl (32.0-35.9); MEAN CELL VOLUME 97.1 fl (80-96); PLATELET COUNT 302 K/MM3 (134-434); RBC 2.74 M/mm3 (4.00-5.60); RDW 13.3 % (11.9-15.9); WHITE BLOOD COUNT 13.5 K/mm3 (4.0-10.0)
--- NOTE | 2019-01-08 10:49 | PN ---
Progress Note, Physician Chief Complaint: left knee pain, fever History of Present Illness: 43yo man with left knee pain for the past 3 years came in for knee replacement. denies chest pain, palpitations, nausea, vomiting, diarrhea. - Current Medication List Current Medications: Active Medications Acetaminophen (Tylenol -) 650 mg PO Q6H [facility] Last Admin: 01/08/19 06:23 Dose: 650 mg Al Hydroxide/Mg Hydroxide (Mylanta Oral Suspension -) 30 ml PO Q4H PRN PRN Reason: DYSPEPSIA Artificial Tears (Lacri-Lube Eye Ointment -) 1 applic NR HS PRN PRN Reason: DRY EYES Diltiazem HCl (Cardizem Cd -) 120 mg PO DAILY [facility] Last Admin: 01/07/19 10:02 Dose: 120 mg Ferrous Sulfate (Feosol -) 325 mg PO DAILY [facility] Last Admin: 01/07/19 10:02 Dose: 325 mg Gabapentin (Neurontin -) 300 mg PO BID [facility] Last Admin: 01/07/19 22:56 Dose: 300 mg Heparin Sodium (Porcine) (Heparin -) 5,000 unit IVPUSH PRN PRN PRN Reason: APTT (SECONDS) <40 Last Admin: 01/07/19 01:50 Dose: 5,000 unit Heparin Sodium (Porcine) (Heparin -) 1,000 unit IVPUSH PRN PRN PRN Reason: APTT (SECONDS) 40-49 Last Admin: 01/08/19 03:31 Dose: 1,000 unit Heparin Sodium/Dextrose (Heparin Infusion -) 25,000 units in 500 mls @ 20 mls/ hr IVPB TITR [facility]; Protocol Last Admin: 01/08/19 03:32 Dose: 1,750 units/hr, 35 mls/hr Sodium Chloride (Normal Saline -) 1,000 mls @ 75 mls/hr IV ASDIR [facility] Last Admin: 01/07/19 22:00 Dose: 75 mls/hr Magnesium Hydroxide (Milk Of Magnesia -) 30 ml PO PRN PRN PRN Reason: CONSTIPATION Multivitamins/Minerals/Vitamin C (Tab-A-Vit -) 1 tab PO DAILY [facility] Last Admin: 01/07/19 10:02 Dose: 1 tab Ondansetron HCl (Zofran Injection) 4 mg IVPUSH Q6H PRN PRN Reason: NAUSEA Oxycodone HCl (Roxicodone -) 5 mg PO Q3H PRN PRN Reason: PAIN LEVEL 1-5 Last Admin: 01/06/19 12:32 Dose: 5 mg Oxycodone HCl (Roxicodone -) 10 mg PO Q3H PRN PRN Reason: PAIN LEVEL 6-10 Last Admin: 01/06/19 08:27 Dose: 10 mg Pantoprazole Sodium (Protonix -) 40 mg PO DAILY [facility] Last Admin: 01/07/19 10:02 Dose: 40 mg Senna/Docusate Sodium (Pericolace -) 2 tablet PO BID [facility] Last Admin: 01/07/19 22:56 Dose: 2 tablet - Objective Vital Signs: Vital Signs Temperature 99.0 F 01/08/19 05:00 Pulse Rate 80 01/08/19 05:00 Respiratory Rate 20 01/08/19 05:00 Blood Pressure 121/73 01/08/19 05:00 O2 Sat by Pulse Oximetry (%) 95 01/07/19 09:00 Constitutional: Yes: Well Nourished, Obese Eyes: Yes: WNL HENT: Yes: WNL Neck: Yes: WNL Cardiovascular: Yes: WNL Respiratory: Yes: Diminished Gastrointestinal: Yes: WNL Genitourinary: Yes: WNL Musculoskeletal: Yes: Joint Stiffness Extremities: Yes: WNL Edema: No Peripheral Pulses WNL: Yes Integumentary: Yes: WNL Wound/Incision: Yes: Clean/Dry, Well Approximated, Dressing Dry and Intact Neurological: Yes: WNL Psychiatric: Yes: WNL Labs: CBC, BMP 01/08/19 06:20 01/07/19 06:20 Assessment/Plan 43 yo man with left knee OA S/P left total knee replacement. cont pain management. incentive spirometry. on aspirin, neurontin, oxycodone. -Pt developed fever, hypoxemia, tachycardia POST-OP: goldstein-cultured. no obvious findings. PE and DVT workup ongoing, heparin drip resumed. will get CTA chest today as clinical suspicion for embolism is still high. cardiology and pulmonary eval appreciated. O2 via NC. keep O2>92%. TTE WNL. -anion gap is trending lower. likely due to hypoalbuminemia in the post-op patient. albumin levels ordered. in paco of this, along with ongoing anemia, leucocytosis, and fever of unknown origin, I feel inclined to rule out multiple myeloma. SPEP, UPEP, light chains ordered. -cont stool softeners for opioid induced constipation. -morbid obesity: weight loss and healthier lifestyle advised. -CKD: kidney donor. will monitor. avoid nephrotoxic agents when possible. renal eval appreciated. getting IV fluids and mucomyst prior to CTA. --PT/OT/OOB as tolerated -oral diet; well tolerated -assessment and plan discussed with pt and his at bedside. he will be discharged on eliquis for 3 months and f/u with Dr Lopez outpatient.
--- NOTE | 2019-01-08 11:01 | PN ---
Progress Note (short form) - Note Progress Note: s: no chest pain, palps, dizziness, dyspnea Current Medications Generic Name Dose Route Start Last Admin Trade Name Freq PRN Reason Stop Dose Admin Acetaminophen 650 mg 01/03/19 18:00 01/08/19 06:23 Tylenol - PO 650 mg Q6H [facility] Administration Al Hydroxide/Mg Hydroxide 30 ml 01/02/19 11:13 Mylanta Oral Suspension - PO Q4H PRN DYSPEPSIA Artificial Tears 1 applic 01/07/19 09:29 Lacri-Lube Eye Ointment - NR HS PRN DRY EYES Diltiazem HCl 120 mg 01/04/19 21:15 01/07/19 10:02 Cardizem Cd - PO 120 mg DAILY [facility] Administration Ferrous Sulfate 325 mg 01/06/19 10:00 01/07/19 10:02 Feosol - PO 325 mg DAILY [facility] Administration Gabapentin 300 mg 01/02/19 22:00 01/07/19 22:56 Neurontin - PO 300 mg BID [facility] Administration Heparin Sodium (Porcine) 5,000 unit 01/06/19 01:47 01/07/19 01:50 Heparin - IVPUSH 5,000 unit PRN PRN Administration APTT (SECONDS) <40 Heparin Sodium (Porcine) 1,000 unit 01/06/19 01:47 01/08/19 03:31 Heparin - IVPUSH 1,000 unit PRN PRN Administration APTT (SECONDS) 40-49 Heparin Sodium/Dextrose 25,000 units in 500 mls @ 20 mls/hr 01/05/19 17:45 03:32 Heparin Infusion - IVPB 1,750 units/hr TITR [facility] 35 mls/hr Administration Protocol 1,000 UNITS/HR Sodium Chloride 1,000 mls @ 75 mls/hr 01/07/19 20:00 01/07/19 22:00 Normal Saline - IV 75 mls/hr ASDIR [facility] Administration Magnesium Hydroxide 30 ml 01/02/19 11:13 Milk Of Magnesia - PO PRN PRN CONSTIPATION Multivitamins/Minerals/Vitamin C 1 tab 01/03/19 10:00 01/07/19 10:02 Tab-A-Vit - PO 1 tab DAILY [facility] Administration Ondansetron HCl 4 mg 01/02/19 11:13 Zofran Injection IVPUSH Q6H PRN NAUSEA Oxycodone HCl 5 mg 01/02/19 14:20 01/06/19 12:32 Roxicodone - PO 5 mg Q3H PRN Administration PAIN LEVEL 1-5 Oxycodone HCl 10 mg 01/02/19 14:20 01/06/19 08:27 Roxicodone - PO 10 mg Q3H PRN Administration PAIN LEVEL 6-10 Pantoprazole Sodium 40 mg 01/03/19 10:00 01/07/19 10:02 Protonix - PO 40 mg DAILY [facility] Administration Senna/Docusate Sodium 2 tablet 01/02/19 22:00 01/07/19 22:56 Pericolace - PO 2 tablet BID [facility] Administration Vital Signs Period Temp Pulse Resp BP Sys/Hill Pulse Ox Last 24 Hr 98.6 F-99.5 F 80-98 18-20 121-150/61-78 Constitutional: Yes: Well Nourished, No Distress, Calm Eyes: Yes: Conjunctiva Clear Neck: Yes: Supple, Trachea Midline Respiratory: Yes: Regular, CTA Bilaterally Gastrointestinal: Yes: Normal Bowel Sounds, Soft Cardiovascular: Yes: Tachycardia JVD: No Heart Sounds: Yes: S1, S2 Murmur: No: Systolic Murmur Musculoskeletal: No: Back Pain Extremities: No: Cold Edema: trace Integumentary: No: Jaundice diaphoresis Neurological: Yes: Alert, Oriented CBC, BMP 01/08/19 06:20 01/07/19 06:20 Assessment/Plan tele: sinus EKG: sinus tachycardia frequent PVCs VQ scan: low probability for PE sinus tachycardia, frequent PVCs, trigeminy - echo nl LV/RV function - may be related to underlying fever, anemia (hgb 11->8.8), pain - manage per primary, surgery - cont diltiazem hypoxia - echo shows nl LV/RV function, PASP 31 mmHg - may have underlying sleep apnea - VQ scan neg for PE, however symptoms suggestive of PE and noncompressible L posterior tibial vein, renal consulted to evaluate for CTA chest given history of one kidney - deferring for now, continuing AC per pulm - manage per pulm s/p L TKR - manage per ortho CKD - stable, history of kidney donation - renal following cardiac lind stable
[2019-01-08] MEDS: FERROUS SO4 325 MG TABLET (FP) PO SCH (11:16)
[2019-01-08] MEDS: MULTIVITAMINS (DAILY MVI) TABLET (FP) PO SCH (11:17)
[2019-01-08] MEDS: PANTOPRAZOLE 40 MG TABLET (FP) PO SCH (11:17)
[2019-01-08] MEDS: GABAPENTIN 300 MG CAPSULE (FP) PO SCH ×2 (11:17→22:12)
[2019-01-08] MEDS: SENNOSIDES/DOCUSATE COMBO (SENNA PLUS) TABLET (UD) PO SCH ×2 (11:17→22:13)
[2019-01-08] MEDS: ACETYLCYSTEINE 20% 200MG/ML 30 ML VIAL *FOR ORAL / INH USE ONLY PO SCH (12:58)
--- NOTE | 2019-01-08 13:15 | PN ---
Progress Note (short form) - Note Progress Note: Awake and alert. Saturation 95% on RA. Being hydrated with IVF. Decision made with the patient to have CTA. Intake & Output 01/05/19 01/06/19 01/07/19 01/08/19 23:59 23:59 23:59 23:59 Intake Total 1090 1544 2561 680 Output Total 800 600 Balance 7040 134 2028 680 Weight 273 lb Last Vital Signs Temp Pulse Resp BP Pulse Ox 99.0 F 80 20 121/73 95 01/08/19 05:00 01/08/19 05:00 01/08/19 05:00 01/08/19 05:00 01/07/19 09:00 Active Medications Acetaminophen (Tylenol -) 650 mg PO Q6H [facility] Last Admin: 01/08/19 11:17 Dose: 650 mg Al Hydroxide/Mg Hydroxide (Mylanta Oral Suspension -) 30 ml PO Q4H PRN PRN Reason: DYSPEPSIA Artificial Tears (Lacri-Lube Eye Ointment -) 1 applic NR HS PRN PRN Reason: DRY EYES Diltiazem HCl (Cardizem Cd -) 120 mg PO DAILY [facility] Last Admin: 01/08/19 11:16 Dose: 120 mg Ferrous Sulfate (Feosol -) 325 mg PO DAILY [facility] Last Admin: 01/08/19 11:16 Dose: 325 mg Gabapentin (Neurontin -) 300 mg PO BID [facility] Last Admin: 01/08/19 11:17 Dose: 300 mg Heparin Sodium (Porcine) (Heparin -) 5,000 unit IVPUSH PRN PRN PRN Reason: APTT (SECONDS) <40 Last Admin: 01/07/19 01:50 Dose: 5,000 unit Heparin Sodium (Porcine) (Heparin -) 1,000 unit IVPUSH PRN PRN PRN Reason: APTT (SECONDS) 40-49 Last Admin: 01/08/19 03:31 Dose: 1,000 unit Heparin Sodium/Dextrose (Heparin Infusion -) 25,000 units in 500 mls @ 20 mls/ hr IVPB TITR [facility]; Protocol Last Admin: 01/08/19 03:32 Dose: 1,750 units/hr, 35 mls/hr Sodium Chloride (Normal Saline -) 1,000 mls @ 75 mls/hr IV ASDIR [facility] Last Admin: 01/07/19 22:00 Dose: 75 mls/hr Magnesium Hydroxide (Milk Of Magnesia -) 30 ml PO PRN PRN PRN Reason: CONSTIPATION Multivitamins/Minerals/Vitamin C (Tab-A-Vit -) 1 tab PO DAILY [facility] Last Admin: 01/08/19 11:17 Dose: 1 tab Ondansetron HCl (Zofran Injection) 4 mg IVPUSH Q6H PRN PRN Reason: NAUSEA Oxycodone HCl (Roxicodone -) 5 mg PO Q3H PRN PRN Reason: PAIN LEVEL 1-5 Last Admin: 01/06/19 12:32 Dose: 5 mg Oxycodone HCl (Roxicodone -) 10 mg PO Q3H PRN PRN Reason: PAIN LEVEL 6-10 Last Admin: 01/06/19 08:27 Dose: 10 mg Pantoprazole Sodium (Protonix -) 40 mg PO DAILY [facility] Last Admin: 01/08/19 11:17 Dose: 40 mg Senna/Docusate Sodium (Pericolace -) 2 tablet PO BID [facility] Last Admin: 01/08/19 11:17 Dose: 2 tablet Constitutional: Yes: NAD Eyes: Yes: WNL HENT: Yes: WNL Neck: Yes: WNL Cardiovascular: Yes: Regular Rate and Rhythm, S1, S2 Respiratory: Yes: CTA Bilaterally Gastrointestinal: Yes: Normal Bowel Sounds, Soft Extremities: Yes: WNL Edema: No Labs: Laboratory Results - last 24 hr 01/07/19 01/07/19 01/08/19 16:00 23:45 06:20 WBC 13.5 H RBC 2.74 L Hgb 8.7 L Hct 26.6 L MCV 97.1 H MCH 31.9 MCHC 32.8 RDW 13.3 Plt Count 302 MPV 8.0 PTT (Actin FS) 45.4 H 47.6 H 01/08/19 06:20 WBC RBC Hgb Hct MCV MCH MCHC RDW Plt Count MPV PTT (Actin FS) 54.0 H Assessment/Plan Problem List - Problems (1) Hypoxemia during surgery Code(s): R09.02 - HYPOXEMIA; I97.88 - OTH INTRAOPERATIVE COMPLICATIONS OF THE CIRC SYS, NEC (2) Total knee replacement status Code(s): Z96.659 - PRESENCE OF UNSPECIFIED ARTIFICIAL KNEE JOINT (3) Chest pain Code(s): R07.9 - CHEST PAIN, UNSPECIFIED (4) Trigeminy Code(s): R00.8 - OTHER ABNORMALITIES OF HEART BEAT Assessment/Plan TACHYCARDIA/HYPOXEMIA/ VENTRICULAR TRIGEMINY S/P KNEE REPLACEMENT V/Q LOW PROBABILITY FOR PE/VENOUS DUPLEX NEGATIVE SUSPECTED OSAS IV HEPARIN INCENTIVE HINA CONTINUE SUPPLEMENTAL O2 OUTPATIENT SLEEP STUDIES CHEST CT CONTRAST HAS BEEN ORDERED AND PATIENT HAS AGREED UNDERSTANDING RISKS/ BENEFITS DR FLORES
--- NOTE | 2019-01-08 13:57 | PN ---
Progress Note, Physician History of Present Illness: Pt seen and examined at bedside. He is awake and alert. He is going for ct angio today. - Current Medication List Current Medications: Active Medications Acetaminophen (Tylenol -) 650 mg PO Q6H [facility] Last Admin: 01/08/19 11:17 Dose: 650 mg Al Hydroxide/Mg Hydroxide (Mylanta Oral Suspension -) 30 ml PO Q4H PRN PRN Reason: DYSPEPSIA Artificial Tears (Lacri-Lube Eye Ointment -) 1 applic NR HS PRN PRN Reason: DRY EYES Diltiazem HCl (Cardizem Cd -) 120 mg PO DAILY [facility] Last Admin: 01/08/19 11:16 Dose: 120 mg Ferrous Sulfate (Feosol -) 325 mg PO DAILY [facility] Last Admin: 01/08/19 11:16 Dose: 325 mg Gabapentin (Neurontin -) 300 mg PO BID [facility] Last Admin: 01/08/19 11:17 Dose: 300 mg Heparin Sodium (Porcine) (Heparin -) 5,000 unit IVPUSH PRN PRN PRN Reason: APTT (SECONDS) <40 Last Admin: 01/07/19 01:50 Dose: 5,000 unit Heparin Sodium (Porcine) (Heparin -) 1,000 unit IVPUSH PRN PRN PRN Reason: APTT (SECONDS) 40-49 Last Admin: 01/08/19 03:31 Dose: 1,000 unit Heparin Sodium/Dextrose (Heparin Infusion -) 25,000 units in 500 mls @ 20 mls/ hr IVPB TITR [facility]; Protocol Last Admin: 01/08/19 03:32 Dose: 1,750 units/hr, 35 mls/hr Sodium Chloride (Normal Saline -) 1,000 mls @ 75 mls/hr IV ASDIR [facility] Last Admin: 01/07/19 22:00 Dose: 75 mls/hr Magnesium Hydroxide (Milk Of Magnesia -) 30 ml PO PRN PRN PRN Reason: CONSTIPATION Multivitamins/Minerals/Vitamin C (Tab-A-Vit -) 1 tab PO DAILY [facility] Last Admin: 01/08/19 11:17 Dose: 1 tab Ondansetron HCl (Zofran Injection) 4 mg IVPUSH Q6H PRN PRN Reason: NAUSEA Oxycodone HCl (Roxicodone -) 5 mg PO Q3H PRN PRN Reason: PAIN LEVEL 1-5 Last Admin: 01/06/19 12:32 Dose: 5 mg Oxycodone HCl (Roxicodone -) 10 mg PO Q3H PRN PRN Reason: PAIN LEVEL 6-10 Last Admin: 01/06/19 08:27 Dose: 10 mg Pantoprazole Sodium (Protonix -) 40 mg PO DAILY [facility] Last Admin: 01/08/19 11:17 Dose: 40 mg Senna/Docusate Sodium (Pericolace -) 2 tablet PO BID [facility] Last Admin: 01/08/19 11:17 Dose: 2 tablet - Objective Vital Signs: Vital Signs Temperature 99.0 F 01/08/19 05:00 Pulse Rate 80 01/08/19 05:00 Respiratory Rate 20 01/08/19 05:00 Blood Pressure 121/73 01/08/19 05:00 O2 Sat by Pulse Oximetry (%) 95 01/07/19 09:00 Constitutional: Yes: Calm Eyes: Yes: Conjunctiva Clear HENT: Yes: Atraumatic Neck: Yes: Supple Cardiovascular: Yes: S1, S2 Respiratory: Yes: CTA Bilaterally Gastrointestinal: Yes: Soft Genitourinary: Yes: WNL Musculoskeletal: Yes: WNL Edema: No Neurological: Yes: Oriented Psychiatric: Yes: Oriented Labs: CBC, BMP 01/08/19 06:20 01/07/19 06:20 Problem List - Problems (1) CKD (chronic kidney disease) Code(s): N18.9 - CHRONIC KIDNEY DISEASE, UNSPECIFIED (2) Hypoxemia during surgery Code(s): R09.02 - HYPOXEMIA; I97.88 - OTH INTRAOPERATIVE COMPLICATIONS OF THE CIRC SYS, NEC (3) Total knee replacement status Code(s): Z96.659 - PRESENCE OF UNSPECIFIED ARTIFICIAL KNEE JOINT Assessment/Plan Current Medications Generic Name Dose Route Start Last Admin Trade Name Freq PRN Reason Stop Dose Admin Acetaminophen 650 mg 01/03/19 18:00 01/08/19 11:17 Tylenol - PO 650 mg Q6H [facility] Administration Al Hydroxide/Mg Hydroxide 30 ml 01/02/19 11:13 Mylanta Oral Suspension - PO Q4H PRN DYSPEPSIA Artificial Tears 1 applic 01/07/19 09:29 Lacri-Lube Eye Ointment - NR HS PRN DRY EYES Diltiazem HCl 120 mg 01/04/19 21:15 01/08/19 11:16 Cardizem Cd - PO 120 mg DAILY [facility] Administration Ferrous Sulfate 325 mg 01/06/19 10:00 01/08/19 11:16 Feosol - PO 325 mg DAILY [facility] Administration Gabapentin 300 mg 01/02/19 22:00 01/08/19 11:17 Neurontin - PO 300 mg BID [facility] Administration Heparin Sodium (Porcine) 5,000 unit 01/06/19 01:47 01/07/19 01:50 Heparin - IVPUSH 5,000 unit PRN PRN Administration APTT (SECONDS) <40 Heparin Sodium (Porcine) 1,000 unit 01/06/19 01:47 01/08/19 03:31 Heparin - IVPUSH 1,000 unit PRN PRN Administration APTT (SECONDS) 40-49 Heparin Sodium/Dextrose 25,000 units in 500 mls @ 20 mls/hr 01/05/19 17:45 03:32 Heparin Infusion - IVPB 1,750 units/hr TITR [facility] 35 mls/hr Administration Protocol 1,000 UNITS/HR Sodium Chloride 1,000 mls @ 75 mls/hr 01/07/19 20:00 01/07/19 22:00 Normal Saline - IV 75 mls/hr ASDIR [facility] Administration Magnesium Hydroxide 30 ml 01/02/19 11:13 Milk Of Magnesia - PO PRN PRN CONSTIPATION Multivitamins/Minerals/Vitamin C 1 tab 01/03/19 10:00 01/08/19 11:17 Tab-A-Vit - PO 1 tab DAILY [facility] Administration Ondansetron HCl 4 mg 01/02/19 11:13 Zofran Injection IVPUSH Q6H PRN NAUSEA Oxycodone HCl 5 mg 01/02/19 14:20 01/06/19 12:32 Roxicodone - PO 5 mg Q3H PRN Administration PAIN LEVEL 1-5 Oxycodone HCl 10 mg 01/02/19 14:20 01/06/19 08:27 Roxicodone - PO 10 mg Q3H PRN Administration PAIN LEVEL 6-10 Pantoprazole Sodium 40 mg 01/03/19 10:00 01/08/19 11:17 Protonix - PO 40 mg DAILY [facility] Administration Senna/Docusate Sodium 2 tablet 01/02/19 22:00 01/08/19 11:17 Pericolace - PO 2 tablet BID [facility] Administration Impression 1. CKD vs KAITLIN 2. r/o PE 3. obesity 4. hypoxia 5. s/p knee surgery 6. likely sleep apnea Plan - renal function had improved - ct angio was ordered - pt prepped with fluids - he understand the risks of renal failure with contrast, his understands as well - check artificial stone applicator 48 hours after contrast - pt on heparin for possible PE
[2019-01-08] MEDS: SODIUM CHLORIDE 1,000 ML IV SCH (22:11)
[2019-01-09] MEDS ORDERED: ALBUTEROL SO4 2.5/IPRATROPIUM 0.5 INH SOL 3 ML VIAL.NEB. NEB PRN (00:09)
[2019-01-09] MEDS: ACETAMINOPHEN 325 MG TABLET (FP) PO SCH ×3 (05:56→18:38)
[2019-01-09 06:56] LABS: BASO % 0.5 % (0-2.0); EOS % 2.5 % (0-4.5); HEMATOCRIT 25.6 % (35.4-49); HEMOGLOBIN 8.4 GM/dL (11.7-16.9); LYMPH % 21.7 % (8-40); MCH 31.9 pg (25.7-33.7); MCHC 32.8 g/dl (32.0-35.9); MEAN CELL VOLUME 97.3 fl (80-96); NEUT % 68.3 % (42.8-82.8); RBC 2.63 M/mm3 (4.00-5.60); RDW 13.4 % (11.9-15.9); WHITE BLOOD COUNT 14.8 K/mm3 (4.0-10.0)
[2019-01-09 07:17] LABS: ALBUMIN 2.6 g/dl (3.4-5.0); BILIRUBIN,TOTAL 0.6 mg/dL (0.2-1); BLOOD UREA NITROGEN 11.6 mg/dL (7-18); CALCIUM 8.2 mg/dL (8.5-10.1); CREATININE 1.2 mg/dL (0.55-1.3); POTASSIUM 3.9 mmol/L (3.5-5.1); TOT PROT 6.5 g/dl (6.4-8.2)
[2019-01-09 07:46] LABS: PLATELET COUNT 335 K/MM3 (134-434)
--- NOTE | 2019-01-09 09:24 | PN ---
Progress Note, Physician Chief Complaint: No new complaints TELE: Sinus tach; PVCs/ Couplets History of Present Illness: CTA + PE - Current Medication List Current Medications: Active Medications Acetaminophen (Tylenol -) 650 mg PO Q6H [facility] Last Admin: 01/09/19 05:56 Dose: 650 mg Al Hydroxide/Mg Hydroxide (Mylanta Oral Suspension -) 30 ml PO Q4H PRN PRN Reason: DYSPEPSIA Albuterol/Ipratropium (Duoneb -) 1 amp NEB Q6H PRN PRN Reason: SHORTNESS OF BREATH Last Admin: 01/09/19 00:19 Dose: 1 amp Artificial Tears (Lacri-Lube Eye Ointment -) 1 applic NR HS PRN PRN Reason: DRY EYES Diltiazem HCl (Cardizem Cd -) 120 mg PO DAILY [facility] Last Admin: 01/08/19 11:16 Dose: 120 mg Ferrous Sulfate (Feosol -) 325 mg PO DAILY [facility] Last Admin: 01/08/19 11:16 Dose: 325 mg Gabapentin (Neurontin -) 300 mg PO BID [facility] Last Admin: 01/08/19 22:12 Dose: 300 mg Heparin Sodium (Porcine) (Heparin -) 5,000 unit IVPUSH PRN PRN PRN Reason: APTT (SECONDS) <40 Last Admin: 01/07/19 01:50 Dose: 5,000 unit Heparin Sodium (Porcine) (Heparin -) 1,000 unit IVPUSH PRN PRN PRN Reason: APTT (SECONDS) 40-49 Last Admin: 01/08/19 03:31 Dose: 1,000 unit Heparin Sodium/Dextrose (Heparin Infusion -) 25,000 units in 500 mls @ 20 mls/ hr IVPB TITR [facility]; Protocol Last Admin: 01/08/19 17:26 Dose: 1,750 units/hr, 35 mls/hr Magnesium Hydroxide (Milk Of Magnesia -) 30 ml PO PRN PRN PRN Reason: CONSTIPATION Multivitamins/Minerals/Vitamin C (Tab-A-Vit -) 1 tab PO DAILY [facility] Last Admin: 01/08/19 11:17 Dose: 1 tab Ondansetron HCl (Zofran Injection) 4 mg IVPUSH Q6H PRN PRN Reason: NAUSEA Pantoprazole Sodium (Protonix -) 40 mg PO DAILY [facility] Last Admin: 01/08/19 11:17 Dose: 40 mg Senna/Docusate Sodium (Pericolace -) 2 tablet PO BID [facility] Last Admin: 01/08/19 22:13 Dose: 2 tablet - Objective Vital Signs: Vital Signs Temperature 98.9 F 01/09/19 05:00 Pulse Rate 85 01/09/19 05:00 Respiratory Rate 20 01/09/19 05:00 Blood Pressure 144/89 01/09/19 05:00 O2 Sat by Pulse Oximetry (%) 97 01/08/19 23:39 Constitutional: Yes: No Distress Cardiovascular: Yes: Regular Rate and Rhythm Respiratory: Yes: CTA Bilaterally Gastrointestinal: Yes: Soft Edema: No Neurological: Yes: Alert, Oriented Labs: CBC, BMP 01/09/19 05:30 01/09/19 05:30 Laboratory Tests 01/09/19 01/09/19 01/09/19 05:30 05:30 05:30 WBC 14.8 H Hgb 8.4 L Plt Count 335 PTT (Actin FS) 57.0 H Sodium 141 Potassium 3.9 Creatinine 1.2 - ....Imaging EKG: Image Reviewed Assessment/Plan Assessment/Plan tele: sinus EKG: sinus tachycardia frequent PVCs VQ scan: low probability for PE CTA: + PE Sinus tachycardia, frequent PVCs, trigeminy: + Pulmonary embolism on CTA - echo nl LV/RV function Hypoxia: +Pulmonary embolism - echo shows nl LV/RV function, PASP 31 mmHg - Continue AC, possible switch to NOAC as per Pulmonary s/p L TKR: - manage per ortho CKD: - stable, history of kidney donation - renal following
[2019-01-09] MEDS: PANTOPRAZOLE 40 MG TABLET (FP) PO SCH (09:46)
[2019-01-09] MEDS: SENNOSIDES/DOCUSATE COMBO (SENNA PLUS) TABLET (UD) PO SCH ×2 (09:46→22:07)
[2019-01-09] MEDS: MULTIVITAMINS (DAILY MVI) TABLET (FP) PO SCH (09:47)
[2019-01-09] MEDS: FERROUS SO4 325 MG TABLET (FP) PO SCH (09:47)
[2019-01-09] MEDS: GABAPENTIN 300 MG CAPSULE (FP) PO SCH ×2 (09:47→22:07)
--- NOTE | 2019-01-09 10:58 | PN ---
Progress Note, Physician History of Present Illness: pulmonary alert,no distress -sob. chest cta + PE RLL,?RUL - Current Medication List Current Medications: Active Medications Acetaminophen (Tylenol -) 650 mg PO Q6H [facility] Last Admin: 01/09/19 05:56 Dose: 650 mg Al Hydroxide/Mg Hydroxide (Mylanta Oral Suspension -) 30 ml PO Q4H PRN PRN Reason: DYSPEPSIA Albuterol/Ipratropium (Duoneb -) 1 amp NEB Q6H PRN PRN Reason: SHORTNESS OF BREATH Last Admin: 01/09/19 00:19 Dose: 1 amp Artificial Tears (Lacri-Lube Eye Ointment -) 1 applic NR HS PRN PRN Reason: DRY EYES Diltiazem HCl (Cardizem Cd -) 120 mg PO DAILY [facility] Last Admin: 01/09/19 09:46 Dose: 120 mg Ferrous Sulfate (Feosol -) 325 mg PO DAILY [facility] Last Admin: 01/09/19 09:47 Dose: 325 mg Gabapentin (Neurontin -) 300 mg PO BID [facility] Last Admin: 01/09/19 09:47 Dose: 300 mg Heparin Sodium (Porcine) (Heparin -) 5,000 unit IVPUSH PRN PRN PRN Reason: APTT (SECONDS) <40 Last Admin: 01/07/19 01:50 Dose: 5,000 unit Heparin Sodium (Porcine) (Heparin -) 1,000 unit IVPUSH PRN PRN PRN Reason: APTT (SECONDS) 40-49 Last Admin: 01/08/19 03:31 Dose: 1,000 unit Heparin Sodium/Dextrose (Heparin Infusion -) 25,000 units in 500 mls @ 20 mls/ hr IVPB TITR [facility]; Protocol Last Admin: 01/08/19 17:26 Dose: 1,750 units/hr, 35 mls/hr Magnesium Hydroxide (Milk Of Magnesia -) 30 ml PO PRN PRN PRN Reason: CONSTIPATION Multivitamins/Minerals/Vitamin C (Tab-A-Vit -) 1 tab PO DAILY [facility] Last Admin: 01/09/19 09:47 Dose: 1 tab Ondansetron HCl (Zofran Injection) 4 mg IVPUSH Q6H PRN PRN Reason: NAUSEA Pantoprazole Sodium (Protonix -) 40 mg PO DAILY [facility] Last Admin: 01/09/19 09:46 Dose: 40 mg Senna/Docusate Sodium (Pericolace -) 2 tablet PO BID [facility] Last Admin: 01/09/19 09:46 Dose: 2 tablet - Objective Vital Signs: Vital Signs Temperature 98.9 F 01/09/19 05:00 Pulse Rate 85 01/09/19 05:00 Respiratory Rate 20 01/09/19 05:00 Blood Pressure 144/89 01/09/19 05:00 O2 Sat by Pulse Oximetry (%) 97 01/08/19 23:39 Constitutional: Yes: Well Nourished, Calm, Obese Eyes: Yes: WNL HENT: Yes: WNL Neck: Yes: WNL Cardiovascular: Yes: Regular Rate and Rhythm, S1, S2 Respiratory: Yes: CTA Bilaterally Gastrointestinal: Yes: Normal Bowel Sounds, Soft Extremities: Yes: WNL Edema: No Labs: CBC, BMP 01/09/19 05:30 01/09/19 05:30 Assessment/Plan Problem List - Problems (1) Hypoxemia during surgery Code(s): R09.02 - HYPOXEMIA; I97.88 - OTH INTRAOPERATIVE COMPLICATIONS OF THE CIRC SYS, NEC (2) Total knee replacement status Code(s): Z96.659 - PRESENCE OF UNSPECIFIED ARTIFICIAL KNEE JOINT (3) Chest pain Code(s): R07.9 - CHEST PAIN, UNSPECIFIED (4) Trigeminy Code(s): R00.8 - OTHER ABNORMALITIES OF HEART BEAT Assessment/Plan TACHYCARDIA/HYPOXEMIA/ VENTRICULAR TRIGEMINY S/P KNEE REPLACEMENT V/Q LOW PROBABILITY FOR PE/VENOUS DUPLEX NEGATIVE SUSPECTED OSAS + PE LIKELY PROVOKED ELIQUIS 10 mg PO BID X 7 DAYS THEN REDUCE TO 5mg PO BID OUTPATIENT HEME EVAL DR CRUZ TO W/U FOR HYPERCOAGULABLE STATE INCENTIVE HINA CONTINUE SUPPLEMENTAL O2 OUTPATIENT SLEEP STUDIES AMBULATORY O2 SAT ON RA DR RANDLE
[2019-01-09] MEDS: APIXABAN 5 MG TABLET PO SCH ×2 (13:00→22:07)
--- NOTE | 2019-01-09 14:26 | PN ---
Progress Note (short form) - Note Progress Note: Patient seen and examined Consult dictated 43 year old who underwent left TKR on 01/02/ On 01/03 given ASA . On 01/05 developed SOB, tachycardia, and hypoxemia. Initial V/Q scan- low probability of PE. 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 subsegmental RUL pulmonary embolus. Begun on heparin 01/05. Post op patient also developed fever and antibiotics instituted . PMH - left and right arthroscopy Social Hx - smoked marijuana in late and early .No cigarettes. Weekend beer drinker of up to 12 cans per day. This was discontinued 3 months earlier. Family Mother of renal failure; Father alive with asthma; grandparent with stroke (MGM) ; No history of blood clots or pulmonary emboli ROS some dizziness on positional changes. No chest pains or significant SOB ; Remainder of comprehensive review - unremarkable Meds Protonix, MVI, feosol,senna,cardizem, duoneb,eliquis, zofran, tylenol P.E. Obese HEENT: GENEVIEVE, EOM Intact Oropharynx: No thrush, No mucositis, tonsil remnants Neck: Supple Nodes: Without adenopathy Cor: RSR, No murmurs, No gallops Lungs: Clear to P&A Abd: Soft, Normal bowel sounds, No organomegaly Ext:No significant edema, left knee dressing ,SCD Skin: No rashes, Integument intact CBC, BMP 01/09/19 05:30 01/09/19 05:30 Impression: S/P TKR Acute pulmonary embous segmental RLL and ? subsegment RUL Leucocytos Falling Hb/hct Patient has been bridged from heparin to eliquis . Dosing 10 mg BID x 7 days and then 5 BID. No correction required with one kidney and patient has normal kidney function. Fall in Hct in part due to dilutional factors. Had EBL of 20 cc reported in anesthesia chart. Also received 1700 cc of crystalloid . Occult blood x 1 is negative. Will screen for hemolysis. Provoked PE - thrombophilia screening as outpatient .
--- NOTE | 2019-01-09 15:14 | PN ---
Progress Note, Physician History of Present Illness: Pt seen and examined at bedside. He is awake and alert. He denies shortness of breath. He denies dysuria or hematuria. - Current Medication List Current Medications: Active Medications Acetaminophen (Tylenol -) 650 mg PO Q6H [facility] Last Admin: 01/09/19 15:02 Dose: 650 mg Al Hydroxide/Mg Hydroxide (Mylanta Oral Suspension -) 30 ml PO Q4H PRN PRN Reason: DYSPEPSIA Albuterol/Ipratropium (Duoneb -) 1 amp NEB Q6H PRN PRN Reason: SHORTNESS OF BREATH Last Admin: 01/09/19 00:19 Dose: 1 amp Apixaban (Eliquis -) 10 mg PO BID [facility] Last Admin: 01/09/19 13:00 Dose: 10 mg Artificial Tears (Lacri-Lube Eye Ointment -) 1 applic NR HS PRN PRN Reason: DRY EYES Diltiazem HCl (Cardizem Cd -) 120 mg PO DAILY [facility] Last Admin: 01/09/19 09:46 Dose: 120 mg Ferrous Sulfate (Feosol -) 325 mg PO DAILY [facility] Last Admin: 01/09/19 09:47 Dose: 325 mg Gabapentin (Neurontin -) 300 mg PO BID [facility] Last Admin: 01/09/19 09:47 Dose: 300 mg Magnesium Hydroxide (Milk Of Magnesia -) 30 ml PO PRN PRN PRN Reason: CONSTIPATION Multivitamins/Minerals/Vitamin C (Tab-A-Vit -) 1 tab PO DAILY [facility] Last Admin: 01/09/19 09:47 Dose: 1 tab Ondansetron HCl (Zofran Injection) 4 mg IVPUSH Q6H PRN PRN Reason: NAUSEA Pantoprazole Sodium (Protonix -) 40 mg PO DAILY [facility] Last Admin: 01/09/19 09:46 Dose: 40 mg Senna/Docusate Sodium (Pericolace -) 2 tablet PO BID [facility] Last Admin: 01/09/19 09:46 Dose: 2 tablet - Objective Vital Signs: Vital Signs Temperature 98.9 F 01/09/19 05:00 Pulse Rate 85 01/09/19 05:00 Respiratory Rate 20 01/09/19 05:00 Blood Pressure 144/89 01/09/19 05:00 O2 Sat by Pulse Oximetry (%) 97 01/08/19 23:39 Constitutional: Yes: Calm Eyes: Yes: Conjunctiva Clear HENT: Yes: Atraumatic Neck: Yes: Supple Cardiovascular: Yes: S1, S2 Respiratory: Yes: CTA Bilaterally Gastrointestinal: Yes: Soft, Abdomen, Obese Genitourinary: Yes: WNL Musculoskeletal: Yes: Joint Swelling Edema: No Neurological: Yes: Oriented Psychiatric: Yes: Oriented Labs: CBC, BMP 01/09/19 05:30 01/09/19 05:30 Problem List - Problems (1) CKD (chronic kidney disease) Code(s): N18.9 - CHRONIC KIDNEY DISEASE, UNSPECIFIED (2) Hypoxemia during surgery Code(s): R09.02 - HYPOXEMIA; I97.88 - OTH INTRAOPERATIVE COMPLICATIONS OF THE CIRC SYS, NEC (3) Total knee replacement status Code(s): Z96.659 - PRESENCE OF UNSPECIFIED ARTIFICIAL KNEE JOINT Assessment/Plan Current Medications Generic Name Dose Route Start Last Admin Trade Name Freq PRN Reason Stop Dose Admin Acetaminophen 650 mg 01/03/19 18:00 01/09/19 15:02 Tylenol - PO 650 mg Q6H [facility] Administration Al Hydroxide/Mg Hydroxide 30 ml 01/02/19 11:13 Mylanta Oral Suspension - PO Q4H PRN DYSPEPSIA Albuterol/Ipratropium 1 amp 01/09/19 00:09 01/09/19 00:19 Duoneb - NEB 1 amp Q6H PRN Administration SHORTNESS OF BREATH Apixaban 10 mg 01/09/19 11:00 01/09/19 13:00 Eliquis - PO 10 mg BID [facility] Administration Artificial Tears 1 applic 01/07/19 09:29 Lacri-Lube Eye Ointment - NR HS PRN DRY EYES Diltiazem HCl 120 mg 01/04/19 21:15 01/09/19 09:46 Cardizem Cd - PO 120 mg DAILY [facility] Administration Ferrous Sulfate 325 mg 01/06/19 10:00 01/09/19 09:47 Feosol - PO 325 mg DAILY [facility] Administration Gabapentin 300 mg 01/02/19 22:00 01/09/19 09:47 Neurontin - PO 300 mg BID [facility] Administration Magnesium Hydroxide 30 ml 01/02/19 11:13 Milk Of Magnesia - PO PRN PRN CONSTIPATION Multivitamins/Minerals/Vitamin C 1 tab 01/03/19 10:00 01/09/19 09:47 Tab-A-Vit - PO 1 tab DAILY [facility] Administration Ondansetron HCl 4 mg 01/02/19 11:13 Zofran Injection IVPUSH Q6H PRN NAUSEA Pantoprazole Sodium 40 mg 01/03/19 10:00 01/09/19 09:46 Protonix - PO 40 mg DAILY [facility] Administration Senna/Docusate Sodium 2 tablet 01/02/19 22:00 01/09/19 09:46 Pericolace - PO 2 tablet BID [facility] Administration Impression 1. CKD vs KAITLIN 2. pulmonary embolism 3. obesity 4. hypoxia 5. s/p knee surgery 6. likely sleep apnea Plan - check bmp in am - PE seen on ct angio - pulm follow up - will see in office after discharge - renal ultrasound shows normal left kidney
--- NOTE | 2019-01-09 16:33 | CONS ---
DATE OF CONSULTATION: 01/09/2019 HISTORY OF PRESENT ILLNESS: This is a 43-year-old who underwent a left total knee replacement on January 02. Prior to this, the patient had been active, healthy, working at his job. He is with 3 children. His job is working in a [employer]. There are no significant industrial exposures or intoxicants. He does not smoke, but has smoked in the past marijuana in the late 1990s and early 1999s. He formerly drank especially beer on weekends up to a 12-pack per day. For the past 3 months, that has not been the case prior to any surgery. He underwent his left total knee replacement on January 02 and had bigeminy during the procedure. The estimated blood loss was 20 mL, crystalloid given was 1700 mL. Postoperatively, the patient developed fever, tachycardia, and hypoxemia. A VQ scan was low probability, but a CT angiogram revealed right lower lobe pulmonary embolus and questionable subsegmental right upper lobe pulmonary embolus, as well. The patient initially felt some discomfort when taking a deep breath. He also felt some lightheadedness on positional changes. PAST HISTORY: Unremarkable. PAST SURGICAL HISTORY: Includes left and right arthroscopy in the past, as well as a right kidney donation for his mother. FAMILY: Includes a mother who with kidney failure and had a transplant from her son. In addition, there is one grandparent who had a stroke. There is no history of pulmonary emboli or blood clots in the family. ALLERGIES: Patient has no known allergies. CURRENT MEDICATIONS: Include Protonix, vitamins, iron, Rosemarie-Colace, Milk of Magnesia, Cardizem, DuoNeb, Neurontin, and Eliquis 10 b.i.d. to begin. Patient underwent his total knee replacement on January 02. On January 03, he was given aspirin. On January 04, he was begun on heparin therapy. He also received tranexamic acid injection, as well. CURRENT PHYSICAL EXAMINATION: Vital Signs: BP 144/89, pulse 85, respiratory rate 20, temp 98.9. HEENT: PERRLA. EOM intact. Oropharynx: Tonsils still present. No pharyngitis. No cervical or supraclavicular nodes. Lungs: Relatively clear. Cardiac: Regular rhythm. Abdomen: Soft. Extremities: Dressing on left knee. SCDs. REVIEW OF SYSTEMS: No significant headaches. No diplopia. No epistaxis. No dysphagia. Some dizziness on sitting up and getting out of bed too quickly, but no significant shortness of breath. Cardiac: No chest pain. Abdomen: No nausea, vomiting, diarrhea, constipation. No dysuria or hematuria. No back or bone pain. LABORATORY: Hematology: Elevated blood count to 16,000 on January 03, currently 14.8. Initial hemoglobin 11.2, currently 8.4 from January 03 to January 09. Initial hematocrit 33.5 and 34.4 to 25.6. Platelet count 335,000. MCV 97. Differential normal. PTT on heparin 57. Blood gas, January 05: PH 7.43, PCO2 of 40, PO2 of 89. Chemistries, January 09: Sodium 141, K 3.9, chloride 105, CO2 of 29, BUN 11.6, creatinine 1.2, calcium 8.2, AST 28, ALT 24, alkaline phosphatase 66, albumin 2.6, protein 6.5. Immunoglobulins pending. Urinalysis negative. Stool occult blood, January 09, negative. Chest CT: Minimal left basal atelectasis; main pulmonary artery appears mildly dilated, suggestive of possible pulmonary hypertension. CTA: Right lower lobe acute segmental embolus; possible small right upper lobe segmental embolus. Duplex, lower extremities: Negative. IMPRESSION: 1. A 43-year-old who underwent total knee replacement on January 02. Subsequently developed pulmonary embolus in the right lower lobe, as well as questionable subsegmental right upper lobe pulmonary embolus. Duplex negative. 2. A fall in hematocrit from 33% to 34% down to 25%. Occult blood negative. Estimated blood loss at surgery according to chart 20 mL. Patient did receive 1700 mL of crystalloid during surgery, so there is some dilutional effect such that the hematocrit on January 05 was 30% and then subsequently 27% and currently 25%. Suspect some dilutional component to this. Occult blood x1 is negative. Will screen for hemolysis. Have discussed the possibility of a thrombophilia workup as outpatient, as well. The patient has already been begun on Eliquis. I did speak to them about the fact that Coumadin was another option. Likely a minimum of 3 months of therapy. Coumadin does have an antidote, but has to be monitored carefully, and is affected amongst other things by dietary factors and medicines. Eliquis as a NOAC is not affected by dietary or other factors, but does not have an antidote, and the patient and family are aware of this. Thank you. HERMELINDO CRUZ M.D. BRANDIE/[id number]
[2019-01-09] MEDS: oxyCODONE HCL 5 MG TABLET PO PRN (18:22)
[2019-01-09] MEDS: ACETAMINOPHEN 325 MG TABLET (FP) PO PRN (18:37)
--- NOTE | 2019-01-09 20:55 | PN ---
Progress Note, Physician Chief Complaint: left knee pain, fever History of Present Illness: 43yo man with left knee pain for the past 3 years came in for knee replacement. denies chest pain, palpitations, nausea, vomiting, diarrhea. - Current Medication List Current Medications: Active Medications Acetaminophen (Tylenol -) 650 mg PO Q6H [facility] Last Admin: 01/09/19 18:38 Dose: Not Given Acetaminophen (Tylenol -) 325 mg PO Q6H PRN PRN Reason: PAIN > 6 Last Admin: 01/09/19 18:37 Dose: 325 mg Al Hydroxide/Mg Hydroxide (Mylanta Oral Suspension -) 30 ml PO Q4H PRN PRN Reason: DYSPEPSIA Albuterol/Ipratropium (Duoneb -) 1 amp NEB Q6H PRN PRN Reason: SHORTNESS OF BREATH Last Admin: 01/09/19 00:19 Dose: 1 amp Apixaban (Eliquis -) 10 mg PO BID [facility] Last Admin: 01/09/19 13:00 Dose: 10 mg Artificial Tears (Lacri-Lube Eye Ointment -) 1 applic NR HS PRN PRN Reason: DRY EYES Diltiazem HCl (Cardizem Cd -) 120 mg PO DAILY [facility] Last Admin: 01/09/19 09:46 Dose: 120 mg Ferrous Sulfate (Feosol -) 325 mg PO DAILY [facility] Last Admin: 01/09/19 09:47 Dose: 325 mg Gabapentin (Neurontin -) 300 mg PO BID [facility] Last Admin: 01/09/19 09:47 Dose: 300 mg Iron Sucrose 200 mg/ Sodium (Chloride) 100 mls @ 100 mls/hr IVPB ONCE ONE Stop: 01/10/19 10:59 Magnesium Hydroxide (Milk Of Magnesia -) 30 ml PO PRN PRN PRN Reason: CONSTIPATION Multivitamins/Minerals/Vitamin C (Tab-A-Vit -) 1 tab PO DAILY [facility] Last Admin: 01/09/19 09:47 Dose: 1 tab Ondansetron HCl (Zofran Injection) 4 mg IVPUSH Q6H PRN PRN Reason: NAUSEA Oxycodone HCl (Roxicodone -) 5 mg PO Q6H PRN PRN Reason: PAIN > 6 Last Admin: 01/09/19 18:22 Dose: 5 mg Pantoprazole Sodium (Protonix -) 40 mg PO DAILY [facility] Last Admin: 01/09/19 09:46 Dose: 40 mg Senna/Docusate Sodium (Pericolace -) 2 tablet PO BID [facility] Last Admin: 01/09/19 09:46 Dose: 2 tablet - Objective Vital Signs: Vital Signs Temperature 99.3 F 01/09/19 17:00 Pulse Rate 99 H 01/09/19 17:00 Respiratory Rate 20 01/09/19 17:00 Blood Pressure 120/80 01/09/19 17:00 O2 Sat by Pulse Oximetry (%) 97 01/09/19 14:11 Constitutional: Yes: Well Nourished Eyes: Yes: WNL HENT: Yes: WNL Neck: Yes: WNL Cardiovascular: Yes: WNL Respiratory: Yes: WNL Gastrointestinal: Yes: WNL Genitourinary: Yes: WNL Musculoskeletal: Yes: Joint Stiffness Extremities: Yes: WNL Peripheral Pulses WNL: No Integumentary: Yes: WNL Wound/Incision: Yes: Clean/Dry, Well Approximated, Dressing Dry and Intact Neurological: Yes: WNL ...Motor Strength: WNL Psychiatric: Yes: WNL Labs: CBC, BMP 01/09/19 05:30 01/09/19 05:30 Assessment/Plan 43 yo man with left knee OA S/P left total knee replacement. cont pain management. incentive spirometry. on aspirin, neurontin, oxycodone. -Pt developed fever, hypoxemia, tachycardia POST-OP: goldstein-cultured. no obvious findings. PE confirmed. anticoagulated. hematology consult noted. cardiology and pulmonary eval appreciated. O2 via NC. keep O2>92%. TTE WNL. -anion gap is trending lower. likely due to hypoalbuminemia in the post-op patient. albumin levels ordered and hypoalbuminemia confirmed. in paco of this, along with ongoing anemia, leucocytosis, and fever of unknown origin, I feel inclined to rule out multiple myeloma. SPEP, UPEP, light chains ordered. -cont stool softeners for opioid induced constipation. -morbid obesity: weight loss and healthier lifestyle advised. -CKD: kidney donor. will monitor. avoid nephrotoxic agents when possible. renal eval appreciated. getting IV fluids and mucomyst prior to CTA. --PT/OT/OOB as tolerated -oral diet; well tolerated -assessment and plan discussed with pt and his at bedside. plan to DC home this weekend.
[2019-01-10] MEDS: oxyCODONE HCL 5 MG TABLET PO PRN ×3 (01:29→20:16)
[2019-01-10] MEDS: ACETAMINOPHEN 325 MG TABLET (FP) PO SCH ×4 (01:29→17:38)
[2019-01-10 06:54] LABS: BASO % 0.3 % (0-2.0); EOS % 3.1 % (0-4.5); HEMATOCRIT 26.4 % (35.4-49); HEMOGLOBIN 8.7 GM/dL (11.7-16.9); LYMPH % 16.7 % (8-40); MCH 31.8 pg (25.7-33.7); MCHC 32.8 g/dl (32.0-35.9); MEAN CELL VOLUME 96.8 fl (80-96); MONO % 7.3 % (3.8-10.2); NEUT % 72.6 % (42.8-82.8); PLATELET COUNT 411 K/MM3 (134-434); RBC 2.73 M/mm3 (4.00-5.60); RDW 13.6 % (11.9-15.9)
[2019-01-10 07:39] LABS: BLOOD UREA NITROGEN 14.2 mg/dL (7-18); CALCIUM 8.8 mg/dL (8.5-10.1); CREATININE 1.3 mg/dL (0.55-1.3); POTASSIUM 4.5 mmol/L (3.5-5.1)
--- NOTE | 2019-01-10 09:21 | PN ---
Progress Note, Physician Chief Complaint: PE History of Present Illness: no cp, sob, palpit no syncope/presyncope - Current Medication List Current Medications: Active Medications Acetaminophen (Tylenol -) 650 mg PO Q6H [facility] Last Admin: 01/10/19 05:22 Dose: 650 mg Acetaminophen (Tylenol -) 325 mg PO Q6H PRN PRN Reason: PAIN > 6 Last Admin: 01/09/19 18:37 Dose: 325 mg Al Hydroxide/Mg Hydroxide (Mylanta Oral Suspension -) 30 ml PO Q4H PRN PRN Reason: DYSPEPSIA Albuterol/Ipratropium (Duoneb -) 1 amp NEB Q6H PRN PRN Reason: SHORTNESS OF BREATH Last Admin: 01/09/19 00:19 Dose: 1 amp Apixaban (Eliquis -) 10 mg PO BID [facility] Last Admin: 01/09/19 22:07 Dose: 10 mg Artificial Tears (Lacri-Lube Eye Ointment -) 1 applic NR HS PRN PRN Reason: DRY EYES Diltiazem HCl (Cardizem Cd -) 120 mg PO DAILY [facility] Last Admin: 01/09/19 09:46 Dose: 120 mg Ferrous Sulfate (Feosol -) 325 mg PO DAILY [facility] Last Admin: 01/09/19 09:47 Dose: 325 mg Gabapentin (Neurontin -) 300 mg PO BID [facility] Last Admin: 01/09/19 22:07 Dose: 300 mg Iron Sucrose 200 mg/ Sodium (Chloride) 100 mls @ 100 mls/hr IVPB ONCE ONE Stop: 01/10/19 10:59 Magnesium Hydroxide (Milk Of Magnesia -) 30 ml PO PRN PRN PRN Reason: CONSTIPATION Multivitamins/Minerals/Vitamin C (Tab-A-Vit -) 1 tab PO DAILY [facility] Last Admin: 01/09/19 09:47 Dose: 1 tab Ondansetron HCl (Zofran Injection) 4 mg IVPUSH Q6H PRN PRN Reason: NAUSEA Oxycodone HCl (Roxicodone -) 5 mg PO Q6H PRN PRN Reason: PAIN > 6 Last Admin: 01/10/19 01:29 Dose: 5 mg Pantoprazole Sodium (Protonix -) 40 mg PO DAILY [facility] Last Admin: 01/09/19 09:46 Dose: 40 mg Senna/Docusate Sodium (Pericolace -) 2 tablet PO BID [facility] Last Admin: 01/09/19 22:07 Dose: 2 tablet - Objective Vital Signs: Vital Signs Temperature 98.8 F 01/10/19 05:00 Pulse Rate 71 01/10/19 05:00 Respiratory Rate 20 01/10/19 05:00 Blood Pressure 116/62 01/10/19 05:00 O2 Sat by Pulse Oximetry (%) 95 01/09/19 21:00 Constitutional: Yes: No Distress, Calm, Obese Cardiovascular: Yes: Regular Rate and Rhythm, S1, S2. No: Gallop, Murmur Respiratory: Yes: Regular, CTA Bilaterally. No: Accessory Muscle Use, Rales, Wheezes Extremities: No: Cold Edema: No (SCDs on) Neurological: Yes: Alert, Oriented Psychiatric: No: Agitated Labs: CBC, BMP 01/10/19 05:45 01/10/19 05:45 Assessment/Plan tele: sinus EKG: sinus tachycardia with frequent PVCs CTA: + PE tele: NSR/sinus tach Postop PE, provoked (s/p TKR), hypoxia, sinus tach - echo nl LV/RV function, no PH - cont eliquis--duration per pulmonary consultants - sinus tach improving. ok to cont diltiazem for now, as long s bp tolerating-- would likely d/c this once pt ready for discharge if no excess tachy as time elapses from acute PE episode - D/C TELE s/p L TKR: - manage per ortho KAITLIN on CKD: - history of kidney donation - renal fxn improved, stable--renal following
--- NOTE | 2019-01-10 09:28 | PN ---
Progress Note, Physician History of Present Illness: pulmonary alert,no distress,-sob,-cp. O2sat at 95% on ra - Current Medication List Current Medications: Active Medications Acetaminophen (Tylenol -) 650 mg PO Q6H [facility] Last Admin: 01/10/19 05:22 Dose: 650 mg Acetaminophen (Tylenol -) 325 mg PO Q6H PRN PRN Reason: PAIN > 6 Last Admin: 01/09/19 18:37 Dose: 325 mg Al Hydroxide/Mg Hydroxide (Mylanta Oral Suspension -) 30 ml PO Q4H PRN PRN Reason: DYSPEPSIA Albuterol/Ipratropium (Duoneb -) 1 amp NEB Q6H PRN PRN Reason: SHORTNESS OF BREATH Last Admin: 01/09/19 00:19 Dose: 1 amp Apixaban (Eliquis -) 10 mg PO BID [facility] Last Admin: 01/09/19 22:07 Dose: 10 mg Artificial Tears (Lacri-Lube Eye Ointment -) 1 applic NR HS PRN PRN Reason: DRY EYES Diltiazem HCl (Cardizem Cd -) 120 mg PO DAILY [facility] Last Admin: 01/09/19 09:46 Dose: 120 mg Ferrous Sulfate (Feosol -) 325 mg PO DAILY [facility] Last Admin: 01/09/19 09:47 Dose: 325 mg Gabapentin (Neurontin -) 300 mg PO BID [facility] Last Admin: 01/09/19 22:07 Dose: 300 mg Iron Sucrose 200 mg/ Sodium (Chloride) 100 mls @ 100 mls/hr IVPB ONCE ONE Stop: 01/10/19 10:59 Magnesium Hydroxide (Milk Of Magnesia -) 30 ml PO PRN PRN PRN Reason: CONSTIPATION Multivitamins/Minerals/Vitamin C (Tab-A-Vit -) 1 tab PO DAILY [facility] Last Admin: 01/09/19 09:47 Dose: 1 tab Ondansetron HCl (Zofran Injection) 4 mg IVPUSH Q6H PRN PRN Reason: NAUSEA Oxycodone HCl (Roxicodone -) 5 mg PO Q6H PRN PRN Reason: PAIN > 6 Last Admin: 01/10/19 01:29 Dose: 5 mg Pantoprazole Sodium (Protonix -) 40 mg PO DAILY [facility] Last Admin: 01/09/19 09:46 Dose: 40 mg Senna/Docusate Sodium (Pericolace -) 2 tablet PO BID [facility] Last Admin: 01/09/19 22:07 Dose: 2 tablet - Objective Vital Signs: Vital Signs Temperature 98.0 F 01/10/19 09:00 Pulse Rate 89 01/10/19 09:00 Respiratory Rate 20 01/10/19 09:00 Blood Pressure 129/75 01/10/19 09:00 O2 Sat by Pulse Oximetry (%) 95 01/10/19 09:00 Constitutional: Yes: Well Nourished, Calm, Obese Eyes: Yes: WNL HENT: Yes: WNL Neck: Yes: WNL Cardiovascular: Yes: Regular Rate and Rhythm, S1, S2 Respiratory: Yes: CTA Bilaterally Gastrointestinal: Yes: Normal Bowel Sounds, Soft Extremities: Yes: WNL Edema: No Labs: CBC, BMP 01/10/19 05:45 01/10/19 05:45 Assessment/Plan Problem List - Problems (1) Hypoxemia during surgery Code(s): R09.02 - HYPOXEMIA; I97.88 - OTH INTRAOPERATIVE COMPLICATIONS OF THE CIRC SYS, NEC (2) Total knee replacement status Code(s): Z96.659 - PRESENCE OF UNSPECIFIED ARTIFICIAL KNEE JOINT (3) Chest pain Code(s): R07.9 - CHEST PAIN, UNSPECIFIED (4) Trigeminy Code(s): R00.8 - OTHER ABNORMALITIES OF HEART BEAT Assessment/Plan TACHYCARDIA/HYPOXEMIA/ VENTRICULAR TRIGEMINY S/P KNEE REPLACEMENT V/Q LOW PROBABILITY FOR PE/VENOUS DUPLEX NEGATIVE SUSPECTED OSAS + PE LIKELY PROVOKED ELIQUIS 10 mg PO BID X 7 DAYS THEN REDUCE TO 5mg PO BID OUTPATIENT HEME EVAL DR CRUZ TO W/U FOR HYPERCOAGULABLE STATE INCENTIVE HINA CONTINUE SUPPLEMENTAL O2 OUTPATIENT SLEEP STUDIES AMBULATORY O2 SAT ON [address] RANDLE
[2019-01-10] MEDS: MULTIVITAMINS (DAILY MVI) TABLET (FP) PO SCH (09:37)
[2019-01-10] MEDS: GABAPENTIN 300 MG CAPSULE (FP) PO SCH ×2 (09:37→21:21)
[2019-01-10] MEDS: SENNOSIDES/DOCUSATE COMBO (SENNA PLUS) TABLET (UD) PO SCH ×2 (09:37→21:21)
[2019-01-10] MEDS: APIXABAN 5 MG TABLET PO SCH ×2 (09:38→21:22)
[2019-01-10] MEDS: FERROUS SO4 325 MG TABLET (FP) PO SCH (09:38)
[2019-01-10] MEDS: PANTOPRAZOLE 40 MG TABLET (FP) PO SCH (09:38)
[2019-01-10] MEDS ORDERED: IRON SUCROSE INJECTION 200 MG in SODIUM CHLORIDE 90 ML IVPB ONE (10:00)
--- NOTE | 2019-01-10 13:43 | PN ---
Progress Note, Physician History of Present Illness: Pt seen and examined at bedside. He is awake and alert. He denies shortness of breath. He is eager to go home. - Current Medication List Current Medications: Active Medications Acetaminophen (Tylenol -) 650 mg PO Q6H [facility] Last Admin: 01/10/19 12:18 Dose: 650 mg Acetaminophen (Tylenol -) 325 mg PO Q6H PRN PRN Reason: PAIN > 6 Last Admin: 01/09/19 18:37 Dose: 325 mg Al Hydroxide/Mg Hydroxide (Mylanta Oral Suspension -) 30 ml PO Q4H PRN PRN Reason: DYSPEPSIA Albuterol/Ipratropium (Duoneb -) 1 amp NEB Q6H PRN PRN Reason: SHORTNESS OF BREATH Last Admin: 01/09/19 00:19 Dose: 1 amp Apixaban (Eliquis -) 10 mg PO BID [facility] Last Admin: 01/10/19 09:38 Dose: 10 mg Artificial Tears (Lacri-Lube Eye Ointment -) 1 applic NR HS PRN PRN Reason: DRY EYES Diltiazem HCl (Cardizem Cd -) 120 mg PO DAILY [facility] Last Admin: 01/10/19 09:37 Dose: 120 mg Ferrous Sulfate (Feosol -) 325 mg PO DAILY [facility] Last Admin: 01/10/19 09:38 Dose: 325 mg Gabapentin (Neurontin -) 300 mg PO BID [facility] Last Admin: 01/10/19 09:37 Dose: 300 mg Magnesium Hydroxide (Milk Of Magnesia -) 30 ml PO PRN PRN PRN Reason: CONSTIPATION Multivitamins/Minerals/Vitamin C (Tab-A-Vit -) 1 tab PO DAILY [facility] Last Admin: 01/10/19 09:37 Dose: 1 tab Ondansetron HCl (Zofran Injection) 4 mg IVPUSH Q6H PRN PRN Reason: NAUSEA Oxycodone HCl (Roxicodone -) 5 mg PO Q6H PRN PRN Reason: PAIN > 6 Last Admin: 01/10/19 09:46 Dose: 5 mg Pantoprazole Sodium (Protonix -) 40 mg PO DAILY [facility] Last Admin: 01/10/19 09:38 Dose: 40 mg Senna/Docusate Sodium (Pericolace -) 2 tablet PO BID [facility] Last Admin: 01/10/19 09:37 Dose: 2 tablet - Objective Vital Signs: Vital Signs Temperature 98.0 F 01/10/19 09:00 Pulse Rate 89 01/10/19 09:00 Respiratory Rate 20 01/10/19 09:00 Blood Pressure 129/75 01/10/19 09:00 O2 Sat by Pulse Oximetry (%) 95 01/10/19 09:00 Constitutional: Yes: Calm Eyes: Yes: Conjunctiva Clear HENT: Yes: Atraumatic Neck: Yes: Supple Cardiovascular: Yes: S1, S2 Respiratory: Yes: CTA Bilaterally Gastrointestinal: Yes: Normal Bowel Sounds, Soft, Abdomen, Obese Genitourinary: Yes: WNL Musculoskeletal: Yes: Other (knee pain) Edema: No Neurological: Yes: Oriented Psychiatric: Yes: Oriented Labs: CBC, BMP 01/10/19 05:45 01/10/19 05:45 Problem List - Problems (1) CKD (chronic kidney disease) Code(s): N18.9 - CHRONIC KIDNEY DISEASE, UNSPECIFIED (2) Hypoxemia during surgery Code(s): R09.02 - HYPOXEMIA; I97.88 - OTH INTRAOPERATIVE COMPLICATIONS OF THE CIRC SYS, NEC (3) Total knee replacement status Code(s): Z96.659 - PRESENCE OF UNSPECIFIED ARTIFICIAL KNEE JOINT Assessment/Plan Current Medications Generic Name Dose Route Start Last Admin Trade Name Freq PRN Reason Stop Dose Admin Acetaminophen 650 mg 01/03/19 18:00 01/10/19 12:18 Tylenol - PO 650 mg Q6H [facility] Administration Acetaminophen 325 mg 01/09/19 17:56 01/09/19 18:37 Tylenol - PO 325 mg Q6H PRN Administration PAIN > 6 Al Hydroxide/Mg Hydroxide 30 ml 01/02/19 11:13 Mylanta Oral Suspension - PO Q4H PRN DYSPEPSIA Albuterol/Ipratropium 1 amp 01/09/19 00:09 01/09/19 00:19 Duoneb - NEB 1 amp Q6H PRN Administration SHORTNESS OF BREATH Apixaban 10 mg 01/09/19 11:00 01/10/19 09:38 Eliquis - PO 10 mg BID [facility] Administration Artificial Tears 1 applic 01/07/19 09:29 Lacri-Lube Eye Ointment - NR HS PRN DRY EYES Diltiazem HCl 120 mg 01/04/19 21:15 01/10/19 09:37 Cardizem Cd - PO 120 mg DAILY [facility] Administration Ferrous Sulfate 325 mg 01/06/19 10:00 01/10/19 09:38 Feosol - PO 325 mg DAILY [facility] Administration Gabapentin 300 mg 01/02/19 22:00 01/10/19 09:37 Neurontin - PO 300 mg BID [facility] Administration Magnesium Hydroxide 30 ml 01/02/19 11:13 Milk Of Magnesia - PO PRN PRN CONSTIPATION Multivitamins/Minerals/Vitamin C 1 tab 01/03/19 10:00 01/10/19 09:37 Tab-A-Vit - PO 1 tab DAILY [facility] Administration Ondansetron HCl 4 mg 01/02/19 11:13 Zofran Injection IVPUSH Q6H PRN NAUSEA Oxycodone HCl 5 mg 01/09/19 17:56 01/10/19 09:46 Roxicodone - PO 5 mg Q6H PRN Administration PAIN > 6 Pantoprazole Sodium 40 mg 01/03/19 10:00 01/10/19 09:38 Protonix - PO 40 mg DAILY [facility] Administration Senna/Docusate Sodium 2 tablet 01/02/19 22:00 01/10/19 09:37 Pericolace - PO 2 tablet BID [facility] Administration Impression 1. CKD vs KAITLIN 2. pulmonary embolism 3. obesity 4. hypoxia 5. s/p knee surgery 6. likely sleep apnea Plan - renal function stable - will see pt in office - avoid nsaids - discussed diet and weight loss - he will stop drinking beer as well
--- NOTE | 2019-01-10 17:22 | PN ---
Progress Note, Physician History of Present Illness: Doing well. Denies SOB, chest pain. Wants to go home. Denies bleeding. - Current Medication List Current Medications: Active Medications Acetaminophen (Tylenol -) 650 mg PO Q6H [facility] Last Admin: 01/10/19 12:18 Dose: 650 mg Acetaminophen (Tylenol -) 325 mg PO Q6H PRN PRN Reason: PAIN > 6 Last Admin: 01/09/19 18:37 Dose: 325 mg Al Hydroxide/Mg Hydroxide (Mylanta Oral Suspension -) 30 ml PO Q4H PRN PRN Reason: DYSPEPSIA Albuterol/Ipratropium (Duoneb -) 1 amp NEB Q6H PRN PRN Reason: SHORTNESS OF BREATH Last Admin: 01/09/19 00:19 Dose: 1 amp Apixaban (Eliquis -) 10 mg PO BID [facility] Last Admin: 01/10/19 09:38 Dose: 10 mg Artificial Tears (Lacri-Lube Eye Ointment -) 1 applic NR HS PRN PRN Reason: DRY EYES Diltiazem HCl (Cardizem Cd -) 120 mg PO DAILY [facility] Last Admin: 01/10/19 09:37 Dose: 120 mg Ferrous Sulfate (Feosol -) 325 mg PO DAILY [facility] Last Admin: 01/10/19 09:38 Dose: 325 mg Gabapentin (Neurontin -) 300 mg PO BID [facility] Last Admin: 01/10/19 09:37 Dose: 300 mg Magnesium Hydroxide (Milk Of Magnesia -) 30 ml PO PRN PRN PRN Reason: CONSTIPATION Multivitamins/Minerals/Vitamin C (Tab-A-Vit -) 1 tab PO DAILY [facility] Last Admin: 01/10/19 09:37 Dose: 1 tab Ondansetron HCl (Zofran Injection) 4 mg IVPUSH Q6H PRN PRN Reason: NAUSEA Oxycodone HCl (Roxicodone -) 5 mg PO Q6H PRN PRN Reason: PAIN > 6 Last Admin: 01/10/19 09:46 Dose: 5 mg Pantoprazole Sodium (Protonix -) 40 mg PO DAILY [facility] Last Admin: 01/10/19 09:38 Dose: 40 mg Senna/Docusate Sodium (Pericolace -) 2 tablet PO BID [facility] Last Admin: 01/10/19 09:37 Dose: 2 tablet - Objective Vital Signs: Vital Signs Temperature 98.2 F 01/10/19 14:00 Pulse Rate 99 H 01/10/19 14:00 Respiratory Rate 18 01/10/19 14:00 Blood Pressure 130/73 01/10/19 14:00 O2 Sat by Pulse Oximetry (%) 95 01/10/19 09:00 Constitutional: Yes: No Distress, Calm Eyes: Yes: Conjunctiva Clear Cardiovascular: Yes: Regular Rate and Rhythm Respiratory: Yes: Regular, CTA Bilaterally Labs: CBC, BMP 01/10/19 05:45 01/10/19 05:45 Assessment/Plan 43M s/p TKR c/b PE, switched form UFH gtt to Eliquis. Doing well. Hgb continues to be stable. LDH normal.
--- NOTE | 2019-01-10 18:37 | PN ---
Progress Note, Physician Chief Complaint: left knee pain, fever History of Present Illness: 43yo man with left knee pain for the past 3 years came in for knee replacement. denies chest pain, palpitations, nausea, vomiting, diarrhea. - Current Medication List Current Medications: Active Medications Acetaminophen (Tylenol -) 650 mg PO Q6H [facility] Last Admin: 01/10/19 17:38 Dose: 650 mg Acetaminophen (Tylenol -) 325 mg PO Q6H PRN PRN Reason: PAIN > 6 Last Admin: 01/09/19 18:37 Dose: 325 mg Al Hydroxide/Mg Hydroxide (Mylanta Oral Suspension -) 30 ml PO Q4H PRN PRN Reason: DYSPEPSIA Albuterol/Ipratropium (Duoneb -) 1 amp NEB Q6H PRN PRN Reason: SHORTNESS OF BREATH Last Admin: 01/09/19 00:19 Dose: 1 amp Apixaban (Eliquis -) 10 mg PO BID [facility] Last Admin: 01/10/19 09:38 Dose: 10 mg Artificial Tears (Lacri-Lube Eye Ointment -) 1 applic NR HS PRN PRN Reason: DRY EYES Diltiazem HCl (Cardizem Cd -) 120 mg PO DAILY [facility] Last Admin: 01/10/19 09:37 Dose: 120 mg Ferrous Sulfate (Feosol -) 325 mg PO DAILY [facility] Last Admin: 01/10/19 09:38 Dose: 325 mg Gabapentin (Neurontin -) 300 mg PO BID [facility] Last Admin: 01/10/19 09:37 Dose: 300 mg Magnesium Hydroxide (Milk Of Magnesia -) 30 ml PO PRN PRN PRN Reason: CONSTIPATION Multivitamins/Minerals/Vitamin C (Tab-A-Vit -) 1 tab PO DAILY [facility] Last Admin: 01/10/19 09:37 Dose: 1 tab Ondansetron HCl (Zofran Injection) 4 mg IVPUSH Q6H PRN PRN Reason: NAUSEA Oxycodone HCl (Roxicodone -) 5 mg PO Q6H PRN PRN Reason: PAIN > 6 Last Admin: 01/10/19 09:46 Dose: 5 mg Pantoprazole Sodium (Protonix -) 40 mg PO DAILY [facility] Last Admin: 01/10/19 09:38 Dose: 40 mg Senna/Docusate Sodium (Pericolace -) 2 tablet PO BID [facility] Last Admin: 01/10/19 09:37 Dose: 2 tablet - Objective Vital Signs: Vital Signs Temperature 98.2 F 01/10/19 14:00 Pulse Rate 99 H 01/10/19 14:00 Respiratory Rate 18 01/10/19 14:00 Blood Pressure 130/73 01/10/19 14:00 O2 Sat by Pulse Oximetry (%) 95 01/10/19 09:00 Constitutional: Yes: Well Nourished, No Distress, Calm Eyes: Yes: WNL HENT: Yes: WNL Neck: Yes: WNL Respiratory: Yes: WNL Gastrointestinal: Yes: WNL Genitourinary: Yes: WNL Musculoskeletal: Yes: Joint Stiffness Extremities: Yes: WNL Edema: No Peripheral Pulses WNL: Yes Integumentary: Yes: WNL Wound/Incision: Yes: Clean/Dry, Well Approximated, Dressing Dry and Intact Neurological: Yes: WNL ...Motor Strength: WNL Psychiatric: Yes: WNL Labs: CBC, BMP 01/10/19 05:45 01/10/19 05:45 Assessment/Plan 43 yo man with left knee OA S/P left total knee replacement. cont pain management. incentive spirometry. on aspirin, neurontin, oxycodone. -Pt developed fever, hypoxemia, tachycardia POST-OP: goldstein-cultured. no obvious findings. fever from PE? PE confirmed. anticoagulated. hematology consult noted. cardiology and pulmonary eval appreciated. O2 via NC. keep O2>92%. TTE WNL. LE venous duplex was negative for DVT. -anion gap is low. likely due to hypoalbuminemia in the post-op patient. albumin levels ordered and hypoalbuminemia confirmed. -anemia: IV iron given. will f/u with hematology outpatient. retic count is elevated. iron deficiency anemia is likely cause. FOBT is negative. -cont stool softeners for opioid induced constipation. -morbid obesity: weight loss and healthier lifestyle advised. -kidney donor. will monitor. avoid nephrotoxic agents when possible. GFR normal. renal eval appreciated. got IV fluids and mucomyst prior to CTA. -TSH elevated: subclinical hypothyroidism? will not medicate at this time. will repeat TSH, free T3,T4. --PT/OT/OOB as tolerated -oral diet; well tolerated -assessment and plan discussed with pt and his at bedside. plan to DC home tomorrow.
[2019-01-11] MEDS: ACETAMINOPHEN 325 MG TABLET (FP) PO SCH ×4 (01:52→17:49)
[2019-01-11] MEDS: oxyCODONE HCL 5 MG TABLET PO PRN ×3 (06:33→22:40)
[2019-01-11 06:42] LABS: BASO % 0.4 % (0-2.0); EOS % 3.9 % (0-4.5); HEMATOCRIT 25.2 % (35.4-49); HEMOGLOBIN 8.3 GM/dL (11.7-16.9); MCH 31.8 pg (25.7-33.7); MCHC 32.8 g/dl (32.0-35.9); MEAN CELL VOLUME 96.7 fl (80-96); MEAN PLT VOLUME 7.8 fl (7.5-11.1); MONO % 7.6 % (3.8-10.2); NEUT % 67.1 % (42.8-82.8); PLATELET COUNT 432 K/MM3 (134-434); RBC 2.61 M/mm3 (4.00-5.60); RDW 13.6 % (11.9-15.9); WHITE BLOOD COUNT 12.5 K/mm3 (4.0-10.0)
--- NOTE | 2019-01-11 08:48 | PN ---
Progress Note, Physician Chief Complaint: PE History of Present Illness: no sob no cp no palpit knee pain tolerable - Current Medication List Current Medications: Active Medications Acetaminophen (Tylenol -) 650 mg PO Q6H [facility] Last Admin: 01/11/19 06:33 Dose: 650 mg Acetaminophen (Tylenol -) 325 mg PO Q6H PRN PRN Reason: PAIN > 6 Last Admin: 01/09/19 18:37 Dose: 325 mg Al Hydroxide/Mg Hydroxide (Mylanta Oral Suspension -) 30 ml PO Q4H PRN PRN Reason: DYSPEPSIA Albuterol/Ipratropium (Duoneb -) 1 amp NEB Q6H PRN PRN Reason: SHORTNESS OF BREATH Last Admin: 01/09/19 00:19 Dose: 1 amp Apixaban (Eliquis -) 10 mg PO BID [facility] Last Admin: 01/10/19 21:22 Dose: 10 mg Artificial Tears (Lacri-Lube Eye Ointment -) 1 applic NR HS PRN PRN Reason: DRY EYES Diltiazem HCl (Cardizem Cd -) 120 mg PO DAILY [facility] Last Admin: 01/10/19 09:37 Dose: 120 mg Ferrous Sulfate (Feosol -) 325 mg PO DAILY [facility] Last Admin: 01/10/19 09:38 Dose: 325 mg Gabapentin (Neurontin -) 300 mg PO BID [facility] Last Admin: 01/10/19 21:21 Dose: 300 mg Magnesium Hydroxide (Milk Of Magnesia -) 30 ml PO PRN PRN PRN Reason: CONSTIPATION Multivitamins/Minerals/Vitamin C (Tab-A-Vit -) 1 tab PO DAILY [facility] Last Admin: 01/10/19 09:37 Dose: 1 tab Ondansetron HCl (Zofran Injection) 4 mg IVPUSH Q6H PRN PRN Reason: NAUSEA Oxycodone HCl (Roxicodone -) 5 mg PO Q6H PRN PRN Reason: PAIN > 6 Last Admin: 01/11/19 06:33 Dose: 5 mg Pantoprazole Sodium (Protonix -) 40 mg PO DAILY [facility] Last Admin: 01/10/19 09:38 Dose: 40 mg Senna/Docusate Sodium (Pericolace -) 2 tablet PO BID [facility] Last Admin: 01/10/19 21:21 Dose: 2 tablet - Objective Vital Signs: Vital Signs Temperature 98.2 F 06/30/19 06:31 Pulse Rate 88 01/11/19 06:31 Respiratory Rate 18 01/11/19 06:31 Blood Pressure 113/54 L 01/11/19 06:31 O2 Sat by Pulse Oximetry (%) 94 L 01/10/19 21:00 Constitutional: Yes: No Distress, Calm, Obese Cardiovascular: Yes: Regular Rate and Rhythm, S1, S2. No: Gallop, Murmur Respiratory: Yes: Regular, CTA Bilaterally. No: Accessory Muscle Use, Rales, Wheezes Extremities: No: Cold Edema: No (SCDs) Neurological: Yes: Alert, Oriented Psychiatric: No: Agitated Labs: CBC, BMP 01/11/19 05:50 01/10/19 05:45 Assessment/Plan tele: sinus EKG: sinus tachycardia with frequent PVCs CTA: + PE Postop PE, provoked (s/p TKR), hypoxia, sinus tach - echo nl LV/RV function, no PH - cont eliquis--duration per pulmonary consultants - sinus tach improved significantly, no htn here. no need for CCB at this time-- d/c diltiazem s/p L TKR: - manage per ortho KAITLIN on CKD: - history of kidney donation - renal fxn improved, stable--renal following ok for d/c from cardiac standpoint
--- NOTE | 2019-01-11 09:19 | PN ---
Progress Note, Physician History of Present Illness: pulmonary alert,no distress,-sob,-cp . o2 sat at rest 95% on ra. pt O2 desaturated last night while sleeping 78-80%,likely secondary to osas - Current Medication List Current Medications: Active Medications Acetaminophen (Tylenol -) 650 mg PO Q6H [facility] Last Admin: 01/11/19 06:33 Dose: 650 mg Acetaminophen (Tylenol -) 325 mg PO Q6H PRN PRN Reason: PAIN > 6 Last Admin: 01/09/19 18:37 Dose: 325 mg Al Hydroxide/Mg Hydroxide (Mylanta Oral Suspension -) 30 ml PO Q4H PRN PRN Reason: DYSPEPSIA Albuterol/Ipratropium (Duoneb -) 1 amp NEB Q6H PRN PRN Reason: SHORTNESS OF BREATH Last Admin: 01/09/19 00:19 Dose: 1 amp Apixaban (Eliquis -) 10 mg PO BID [facility] Last Admin: 01/10/19 21:22 Dose: 10 mg Artificial Tears (Lacri-Lube Eye Ointment -) 1 applic NR HS PRN PRN Reason: DRY EYES Diltiazem HCl (Cardizem Cd -) 120 mg PO DAILY [facility] Last Admin: 01/10/19 09:37 Dose: 120 mg Ferrous Sulfate (Feosol -) 325 mg PO DAILY [facility] Last Admin: 01/10/19 09:38 Dose: 325 mg Gabapentin (Neurontin -) 300 mg PO BID [facility] Last Admin: 01/10/19 21:21 Dose: 300 mg Magnesium Hydroxide (Milk Of Magnesia -) 30 ml PO PRN PRN PRN Reason: CONSTIPATION Multivitamins/Minerals/Vitamin C (Tab-A-Vit -) 1 tab PO DAILY [facility] Last Admin: 01/10/19 09:37 Dose: 1 tab Ondansetron HCl (Zofran Injection) 4 mg IVPUSH Q6H PRN PRN Reason: NAUSEA Oxycodone HCl (Roxicodone -) 5 mg PO Q6H PRN PRN Reason: PAIN > 6 Last Admin: 01/11/19 06:33 Dose: 5 mg Pantoprazole Sodium (Protonix -) 40 mg PO DAILY [facility] Last Admin: 01/10/19 09:38 Dose: 40 mg Senna/Docusate Sodium (Pericolace -) 2 tablet PO BID [facility] Last Admin: 01/10/19 21:21 Dose: 2 tablet - Objective Vital Signs: Vital Signs Temperature 98.2 F 01/11/19 06:31 Pulse Rate 88 01/11/19 06:31 Respiratory Rate 18 01/11/19 06:31 Blood Pressure 113/54 L 01/11/19 06:31 O2 Sat by Pulse Oximetry (%) 94 L 01/10/19 21:00 Constitutional: Yes: Well Nourished, Calm Eyes: Yes: WNL HENT: Yes: WNL Neck: Yes: WNL Cardiovascular: Yes: Regular Rate and Rhythm, S1, S2 Respiratory: Yes: Diminished Gastrointestinal: Yes: Normal Bowel Sounds, Soft Extremities: Yes: WNL Edema: No Labs: CBC, BMP 01/11/19 05:50 01/10/19 05:45 Assessment/Plan Problem List - Problems (1) Hypoxemia during surgery Code(s): R09.02 - HYPOXEMIA; I97.88 - OTH INTRAOPERATIVE COMPLICATIONS OF THE CIRC SYS, NEC (2) Total knee replacement status Code(s): Z96.659 - PRESENCE OF UNSPECIFIED ARTIFICIAL KNEE JOINT (3) Chest pain Code(s): R07.9 - CHEST PAIN, UNSPECIFIED (4) Trigeminy Code(s): R00.8 - OTHER ABNORMALITIES OF HEART BEAT Assessment/Plan TACHYCARDIA/HYPOXEMIA/ VENTRICULAR TRIGEMINY S/P KNEE REPLACEMENT V/Q LOW PROBABILITY FOR PE/VENOUS DUPLEX NEGATIVE SUSPECTED OSAS + PE LIKELY PROVOKED ELIQUIS 10 mg PO BID X 7 DAYS THEN REDUCE TO 5mg PO BID INCENTIVE HINA CONTINUE SUPPLEMENTAL O2 OUTPATIENT SLEEP STUDIES O2 AT NIGHT DR RANDLE
[2019-01-11] MEDS: SENNOSIDES/DOCUSATE COMBO (SENNA PLUS) TABLET (UD) PO SCH ×2 (10:05→22:40)
[2019-01-11] MEDS: APIXABAN 5 MG TABLET PO SCH ×2 (10:06→22:40)
[2019-01-11] MEDS: MULTIVITAMINS (DAILY MVI) TABLET (FP) PO SCH (10:06)
[2019-01-11] MEDS: FERROUS SO4 325 MG TABLET (FP) PO SCH (10:06)
[2019-01-11] MEDS: GABAPENTIN 300 MG CAPSULE (FP) PO SCH ×2 (10:06→22:41)
[2019-01-11] MEDS: PANTOPRAZOLE 40 MG TABLET (FP) PO SCH (10:06)
--- NOTE | 2019-01-11 10:53 | DS ---
Physical Examination Vital Signs: Vital Signs Temperature 98.8 F 01/11/19 09:00 Pulse Rate 81 01/11/19 09:00 Respiratory Rate 18 01/11/19 09:00 Blood Pressure 111/64 01/11/19 09:00 O2 Sat by Pulse Oximetry (%) 94 L 01/11/19 09:00 Constitutional: Yes: Well Nourished, No Distress, Calm Eyes: Yes: WNL HENT: Yes: WNL Neck: Yes: WNL Cardiovascular: Yes: WNL Respiratory: Yes: WNL Gastrointestinal: Yes: WNL Renal/: Yes: WNL Musculoskeletal: Yes: Joint Stiffness Extremities: Yes: WNL Edema: No Peripheral Pulses WNL: Yes Integumentary: Yes: WNL Wound/Incision: Yes: Clean/Dry, Well Approximated, Dressing Dry and Intact Neurological: Yes: WNL ...Motor Strength: WNL Psychiatric: Yes: WNL Labs: CBC, BMP 01/11/19 05:50 01/10/19 05:45 Discharge Summary Reason For Visit: POST TRAUMATIC OSTEOARTHRITIS Current Active Problems CKD (chronic kidney disease) (Acute) Chest pain (Acute) Hypoxemia during surgery (Acute) Total knee replacement status (Acute) Trigeminy (Acute) Hospital Course: 43 yo man with left knee OA S/P left total knee replacement. cont pain management. incentive spirometry. on aspirin, neurontin, oxycodone. -Pt developed fever, hypoxemia, tachycardia POST-OP: goldstein-cultured. no obvious findings. fever from PE? PE confirmed. anticoagulated. hematology consult noted. cardiology and pulmonary eval appreciated. O2 via NC. keep O2>92%. TTE WNL. LE venous duplex was negative for DVT. -anion gap is low. likely due to hypoalbuminemia in the post-op patient. albumin levels ordered and hypoalbuminemia confirmed. -anemia: IV iron given. will f/u with hematology outpatient. retic count is elevated. iron deficiency anemia is likely cause. FOBT is negative. -cont stool softeners for opioid induced constipation. -morbid obesity: weight loss and healthier lifestyle advised. -kidney donor. will monitor. avoid nephrotoxic agents when possible. GFR normal. renal eval appreciated. got IV fluids and mucomyst prior to CTA. - Instructions Diet, Activity, Other Instructions: Dr. West Discharge Instructions for Knee Replacement Post Operative Instructions Physical activity Physical Therapist will come to your home for the first 5 days. You will be set up with outpatient PT at your first post-operative visit. Use assistive devices for ambulation at all times. Weight bearing as tolerated on your surgical side. Do not put pillow under knee. May put pillow under heel. Wound care Leave your surgical dressing in place. Do not change the dressing until seen by your surgeon in the office. No baths or showers. Do not submerge your incision. Do not apply any ointments or lotions to your incision. Please call the office if your dressing is soiled/dirty or is falling off. Apply Graduated Compression Stockings (TEDS) to both lower extremities - remove daily for hygiene ONLY. Diet There are no dietary restrictions. Eat healthy, high-fiber foods. Drink 6 to 8 glasses of liquid each day. This will assist in keeping your bowels are regular. Pain management Any pain prescription medication ordered should be taken as prescribed for moderate to severe pain. Do not take additional Tylenol while taking Percocet. Take Aspirin 81 mg two times a day for a total of 6 weeks to prevent blood clots. Call Dr. West for any of the following: Severe pain not relieved by medication Fever of 101 or higher Excessive bleeding or drainage on dressing Inability to urinate If you experience chest pain or shortness of breath, please seek emergency care immediately. Please call the office at to confirm your post-op appointment for the week following surgery. Disposition: HOME - Home Medications Comprehensive Discharge Medication List: Ambulatory Orders NK [No Known Home Medication] 12/24/18
--- NOTE | 2019-01-11 15:15 | PN ---
Progress Note, Physician History of Present Illness: Pt seen and examined at bedside. He is awake and alert. His home o2 is not set up yet. He denies dysuria. - Current Medication List Current Medications: Active Medications Acetaminophen (Tylenol -) 650 mg PO Q6H [facility] Last Admin: 01/11/19 13:10 Dose: 650 mg Acetaminophen (Tylenol -) 325 mg PO Q6H PRN PRN Reason: PAIN > 6 Last Admin: 01/09/19 18:37 Dose: 325 mg Al Hydroxide/Mg Hydroxide (Mylanta Oral Suspension -) 30 ml PO Q4H PRN PRN Reason: DYSPEPSIA Albuterol/Ipratropium (Duoneb -) 1 amp NEB Q6H PRN PRN Reason: SHORTNESS OF BREATH Last Admin: 01/09/19 00:19 Dose: 1 amp Apixaban (Eliquis -) 10 mg PO BID [facility] Stop: 01/15/19 22:01 Apixaban (Eliquis -) 5 mg PO BID [facility] Stop: 02/09/19 22:01 Artificial Tears (Lacri-Lube Eye Ointment -) 1 applic NR HS PRN PRN Reason: DRY EYES Ferrous Sulfate (Feosol -) 325 mg PO DAILY [facility] Last Admin: 01/11/19 10:06 Dose: 325 mg Gabapentin (Neurontin -) 300 mg PO BID [facility] Last Admin: 01/11/19 10:06 Dose: 300 mg Magnesium Hydroxide (Milk Of Magnesia -) 30 ml PO PRN PRN PRN Reason: CONSTIPATION Multivitamins/Minerals/Vitamin C (Tab-A-Vit -) 1 tab PO DAILY [facility] Last Admin: 01/11/19 10:06 Dose: 1 tab Ondansetron HCl (Zofran Injection) 4 mg IVPUSH Q6H PRN PRN Reason: NAUSEA Oxycodone HCl (Roxicodone -) 5 mg PO Q6H PRN PRN Reason: PAIN > 6 Last Admin: 01/11/19 15:07 Dose: 5 mg Pantoprazole Sodium (Protonix -) 40 mg PO DAILY [facility] Last Admin: 01/11/19 10:06 Dose: 40 mg Senna/Docusate Sodium (Pericolace -) 2 tablet PO BID [facility] Last Admin: 01/11/19 10:05 Dose: 2 tablet - Objective Vital Signs: Vital Signs Temperature 98.8 F 01/11/19 09:00 Pulse Rate 81 01/11/19 09:00 Respiratory Rate 18 01/11/19 09:00 Blood Pressure 111/64 01/11/19 09:00 O2 Sat by Pulse Oximetry (%) 94 L 01/11/19 09:00 Constitutional: Yes: Calm Eyes: Yes: Conjunctiva Clear HENT: Yes: Atraumatic Neck: Yes: Supple Cardiovascular: Yes: S1, S2 Respiratory: Yes: CTA Bilaterally Gastrointestinal: Yes: Normal Bowel Sounds, Soft Genitourinary: Yes: WNL Musculoskeletal: Yes: WNL Edema: No Neurological: Yes: Oriented Psychiatric: Yes: Oriented Labs: CBC, BMP 01/11/19 05:50 01/10/19 05:45 Problem List - Problems (1) CKD (chronic kidney disease) Code(s): N18.9 - CHRONIC KIDNEY DISEASE, UNSPECIFIED (2) Hypoxemia during surgery Code(s): R09.02 - HYPOXEMIA; I97.88 - OTH INTRAOPERATIVE COMPLICATIONS OF THE CIRC SYS, NEC (3) Total knee replacement status Code(s): Z96.659 - PRESENCE OF UNSPECIFIED ARTIFICIAL KNEE JOINT Assessment/Plan Current Medications Generic Name Dose Route Start Last Admin Trade Name Freq PRN Reason Stop Dose Admin Acetaminophen 650 mg 01/03/19 18:00 01/11/19 13:10 Tylenol - PO 650 mg Q6H [facility] Administration Acetaminophen 325 mg 01/09/19 17:56 01/09/19 18:37 Tylenol - PO 325 mg Q6H PRN Administration PAIN > 6 Al Hydroxide/Mg Hydroxide 30 ml 01/02/19 11:13 Mylanta Oral Suspension - PO Q4H PRN DYSPEPSIA Albuterol/Ipratropium 1 amp 01/09/19 00:09 01/09/19 00:19 Duoneb - NEB 1 amp Q6H PRN Administration SHORTNESS OF BREATH Apixaban 10 mg 01/11/19 22:00 Eliquis - PO 01/15/19 22:01 BID [facility] Apixaban 5 mg 01/16/19 10:00 Eliquis - PO 02/09/19 22:01 BID [facility] Artificial Tears 1 applic 01/07/19 09:29 Lacri-Lube Eye Ointment - NR HS PRN DRY EYES Ferrous Sulfate 325 mg 01/06/19 10:00 01/11/19 10:06 Feosol - PO 325 mg DAILY [facility] Administration Gabapentin 300 mg 01/02/19 22:00 01/11/19 10:06 Neurontin - PO 300 mg BID [facility] Administration Magnesium Hydroxide 30 ml 01/02/19 11:13 Milk Of Magnesia - PO PRN PRN CONSTIPATION Multivitamins/Minerals/Vitamin C 1 tab 01/03/19 10:00 01/11/19 10:06 Tab-A-Vit - PO 1 tab DAILY [facility] Administration Ondansetron HCl 4 mg 01/02/19 11:13 Zofran Injection IVPUSH Q6H PRN NAUSEA Oxycodone HCl 5 mg 01/09/19 17:56 01/11/19 15:07 Roxicodone - PO 5 mg Q6H PRN Administration PAIN > 6 Pantoprazole Sodium 40 mg 01/03/19 10:00 01/11/19 10:06 Protonix - PO 40 mg DAILY [facility] Administration Senna/Docusate Sodium 2 tablet 01/02/19 22:00 01/11/19 10:05 Pericolace - PO 2 tablet BID [facility] Administration Impression 1. CKD vs KAITLIN 2. pulmonary embolism 3. obesity 4. hypoxia 5. s/p knee surgery 6. likely sleep apnea Plan - check bmp in am - will see pt in office, he will make an appointment - avoid nsaids - avoid nephrotoxins
--- NOTE | 2019-01-11 19:37 | PN ---
Progress Note, Physician History of Present Illness: Feels well. Denies SOB, chest pain. Denies bleeding. - Current Medication List Current Medications: Active Medications Acetaminophen (Tylenol -) 650 mg PO Q6H [facility] Last Admin: 01/11/19 17:49 Dose: 650 mg Acetaminophen (Tylenol -) 325 mg PO Q6H PRN PRN Reason: PAIN > 6 Last Admin: 01/09/19 18:37 Dose: 325 mg Al Hydroxide/Mg Hydroxide (Mylanta Oral Suspension -) 30 ml PO Q4H PRN PRN Reason: DYSPEPSIA Albuterol/Ipratropium (Duoneb -) 1 amp NEB Q6H PRN PRN Reason: SHORTNESS OF BREATH Last Admin: 01/09/19 00:19 Dose: 1 amp Apixaban (Eliquis -) 10 mg PO BID [facility] Stop: 01/15/19 22:01 Apixaban (Eliquis -) 5 mg PO BID [facility] Stop: 02/09/19 22:01 Artificial Tears (Lacri-Lube Eye Ointment -) 1 applic NR HS PRN PRN Reason: DRY EYES Ferrous Sulfate (Feosol -) 325 mg PO DAILY [facility] Last Admin: 01/11/19 10:06 Dose: 325 mg Gabapentin (Neurontin -) 300 mg PO BID [facility] Last Admin: 01/11/19 10:06 Dose: 300 mg Magnesium Hydroxide (Milk Of Magnesia -) 30 ml PO PRN PRN PRN Reason: CONSTIPATION Multivitamins/Minerals/Vitamin C (Tab-A-Vit -) 1 tab PO DAILY [facility] Last Admin: 01/11/19 10:06 Dose: 1 tab Ondansetron HCl (Zofran Injection) 4 mg IVPUSH Q6H PRN PRN Reason: NAUSEA Oxycodone HCl (Roxicodone -) 5 mg PO Q6H PRN PRN Reason: PAIN > 6 Last Admin: 01/11/19 15:07 Dose: 5 mg Pantoprazole Sodium (Protonix -) 40 mg PO DAILY [facility] Last Admin: 01/11/19 10:06 Dose: 40 mg Senna/Docusate Sodium (Pericolace -) 2 tablet PO BID [facility] Last Admin: 01/11/19 10:05 Dose: 2 tablet - Objective Vital Signs: Vital Signs Temperature 98 F 01/11/19 17:58 Pulse Rate 86 01/11/19 17:58 Respiratory Rate 18 01/11/19 17:58 Blood Pressure 100/48 L 01/11/19 17:58 O2 Sat by Pulse Oximetry (%) 94 L 01/11/19 09:00 Constitutional: Yes: Well Nourished, No Distress Eyes: Yes: Conjunctiva Clear Cardiovascular: Yes: Regular Rate and Rhythm Respiratory: Yes: Regular, CTA Bilaterally Edema: No (compression stockings in ) Labs: CBC, BMP 01/11/19 05:50 01/10/19 05:45 Assessment/Plan 43M s/p TKR c/b PE, switched form UFH gtt to Eliquis. Doing well. Hgb continues to be stable. Leukocytosis is improving. LDH normal. SPEP pending. Planned for LUIS MIGUEL w/u. Will need outpatient heme follow-up of anemia.
[2019-01-12] MEDS ORDERED: ACETAMINOPHEN 325 MG TABLET (FP) ONE (06:01)
[2019-01-12] MEDS: ACETAMINOPHEN 325 MG TABLET (FP) PO SCH ×3 (06:43→14:22)
[2019-01-12 08:26] LABS: BLOOD UREA NITROGEN 14.4 mg/dL (7-18); CALCIUM 8.8 mg/dL (8.5-10.1); CREATININE 1.3 mg/dL (0.55-1.3); POTASSIUM 4.6 mmol/L (3.5-5.1)
[2019-01-12] MEDS: oxyCODONE HCL 5 MG TABLET PO PRN ×2 (08:46→14:05)
[2019-01-12] MEDS: ACETAMINOPHEN 325 MG TABLET (FP) PO PRN (08:46)
--- NOTE | 2019-01-12 09:17 | PN ---
Progress Note, Physician Chief Complaint: seen and examined Denies CP, SOB, palpitations TELE: NSR, VPCs, Couplets. 3 beats NSVT - Current Medication List Current Medications: Active Medications Acetaminophen (Tylenol -) 650 mg PO Q6H [facility] Last Admin: 01/12/19 06:43 Dose: 650 mg Acetaminophen (Tylenol -) 325 mg PO Q6H PRN PRN Reason: PAIN > 6 Last Admin: 01/12/19 08:46 Dose: 325 mg Al Hydroxide/Mg Hydroxide (Mylanta Oral Suspension -) 30 ml PO Q4H PRN PRN Reason: DYSPEPSIA Albuterol/Ipratropium (Duoneb -) 1 amp NEB Q6H PRN PRN Reason: SHORTNESS OF BREATH Last Admin: 01/09/19 00:19 Dose: 1 amp Apixaban (Eliquis -) 10 mg PO BID [facility] Stop: 01/15/19 22:01 Last Admin: 01/11/19 22:40 Dose: 10 mg Apixaban (Eliquis -) 5 mg PO BID [facility] Stop: 02/09/19 22:01 Artificial Tears (Lacri-Lube Eye Ointment -) 1 applic NR HS PRN PRN Reason: DRY EYES Ferrous Sulfate (Feosol -) 325 mg PO DAILY [facility] Last Admin: 01/11/19 10:06 Dose: 325 mg Gabapentin (Neurontin -) 300 mg PO BID [facility] Last Admin: 01/11/19 22:41 Dose: 300 mg Magnesium Hydroxide (Milk Of Magnesia -) 30 ml PO PRN PRN PRN Reason: CONSTIPATION Multivitamins/Minerals/Vitamin C (Tab-A-Vit -) 1 tab PO DAILY [facility] Last Admin: 01/11/19 10:06 Dose: 1 tab Ondansetron HCl (Zofran Injection) 4 mg IVPUSH Q6H PRN PRN Reason: NAUSEA Oxycodone HCl (Roxicodone -) 5 mg PO Q6H PRN PRN Reason: PAIN > 6 Last Admin: 01/12/19 08:46 Dose: 5 mg Pantoprazole Sodium (Protonix -) 40 mg PO DAILY [facility] Last Admin: 01/11/19 10:06 Dose: 40 mg Senna/Docusate Sodium (Pericolace -) 2 tablet PO BID [facility] Last Admin: 01/11/19 22:40 Dose: 2 tablet - Objective Vital Signs: Vital Signs Temperature 98.6 F 01/12/19 06:00 Pulse Rate 81 01/12/19 06:00 Respiratory Rate 20 01/12/19 06:00 Blood Pressure 134/73 01/12/19 06:00 O2 Sat by Pulse Oximetry (%) 98 01/11/19 22:00 Constitutional: Yes: No Distress Cardiovascular: Yes: Regular Rate and Rhythm Respiratory: Yes: CTA Bilaterally Gastrointestinal: Yes: Soft Edema: No Neurological: Yes: Alert, Oriented Labs: CBC, BMP 01/11/19 05:50 01/12/19 06:00 - ....Imaging EKG: Image Reviewed Assessment/Plan Assessment/Plan tele: sinus EKG: sinus tachycardia with frequent PVCs CTA: + PE Postop PE, provoked (s/p TKR), hypoxia, sinus tach - echo nl LV/RV function, no PH - cont eliquis--duration per pulmonary and heme consultants - sinus tach improved significantly, no htn here. no need for CCB at this time-- d/c diltiazem s/p L TKR: - manage per ortho KAITLIN on CKD: - history of kidney donation - renal fxn improved, stable--renal following VPCs: -Normal biventricular function. Keep K+ and Mg2+ normalized. -No ischemic symptoms.
[2019-01-12] MEDS: SENNOSIDES/DOCUSATE COMBO (SENNA PLUS) TABLET (UD) PO SCH (10:51)
[2019-01-12] MEDS: PANTOPRAZOLE 40 MG TABLET (FP) PO SCH (10:51)
[2019-01-12] MEDS: MULTIVITAMINS (DAILY MVI) TABLET (FP) PO SCH (10:51)
[2019-01-12] MEDS: FERROUS SO4 325 MG TABLET (FP) PO SCH (10:51)
[2019-01-12] MEDS: GABAPENTIN 300 MG CAPSULE (FP) PO SCH (10:51)
[2019-01-12] MEDS: APIXABAN 5 MG TABLET PO SCH (10:53)
[2019-01-12] MEDS ORDERED: DIGOXIN 0.5 MG/2 ML AMPUL ONE (11:15)
[2019-01-12 13:25] VITALS: BP 128/74; PULSE 80; TEMP 98
--- NOTE | 2019-01-12 14:00 | PN ---
Progress Note, Physician History of Present Illness: pulmonary alert,no distress,-sob,cp - Current Medication List Current Medications: Active Medications Acetaminophen (Tylenol -) 650 mg PO Q6H [facility] Last Admin: 01/12/19 06:43 Dose: 650 mg Acetaminophen (Tylenol -) 325 mg PO Q6H PRN PRN Reason: PAIN > 6 Last Admin: 01/12/19 08:46 Dose: 325 mg Al Hydroxide/Mg Hydroxide (Mylanta Oral Suspension -) 30 ml PO Q4H PRN PRN Reason: DYSPEPSIA Albuterol/Ipratropium (Duoneb -) 1 amp NEB Q6H PRN PRN Reason: SHORTNESS OF BREATH Last Admin: 01/09/19 00:19 Dose: 1 amp Apixaban (Eliquis -) 10 mg PO BID [facility] Stop: 01/15/19 22:01 Last Admin: 01/12/19 10:53 Dose: 10 mg Apixaban (Eliquis -) 5 mg PO BID [facility] Stop: 02/09/19 22:01 Artificial Tears (Lacri-Lube Eye Ointment -) 1 applic NR HS PRN PRN Reason: DRY EYES Ferrous Sulfate (Feosol -) 325 mg PO DAILY [facility] Last Admin: 01/12/19 10:51 Dose: 325 mg Gabapentin (Neurontin -) 300 mg PO BID [facility] Last Admin: 01/12/19 10:51 Dose: 300 mg Magnesium Hydroxide (Milk Of Magnesia -) 30 ml PO PRN PRN PRN Reason: CONSTIPATION Multivitamins/Minerals/Vitamin C (Tab-A-Vit -) 1 tab PO DAILY [facility] Last Admin: 01/12/19 10:51 Dose: 1 tab Ondansetron HCl (Zofran Injection) 4 mg IVPUSH Q6H PRN PRN Reason: NAUSEA Oxycodone HCl (Roxicodone -) 5 mg PO Q6H PRN PRN Reason: PAIN > 6 Last Admin: 01/12/19 08:46 Dose: 5 mg Pantoprazole Sodium (Protonix -) 40 mg PO DAILY [facility] Last Admin: 01/12/19 10:51 Dose: 40 mg Senna/Docusate Sodium (Pericolace -) 2 tablet PO BID [facility] Last Admin: 01/12/19 10:51 Dose: 2 tablet - Objective Vital Signs: Vital Signs Temperature 98 F 01/12/19 09:23 Pulse Rate 80 01/12/19 09:23 Respiratory Rate 20 01/12/19 09:23 Blood Pressure 128/74 01/12/19 09:23 O2 Sat by Pulse Oximetry (%) 98 01/12/19 09:00 Constitutional: Yes: Well Nourished, Calm, Obese Eyes: Yes: WNL HENT: Yes: Nasal Congestion, Other Cardiovascular: Yes: Regular Rate and Rhythm, S1, S2 Respiratory: Yes: CTA Bilaterally Gastrointestinal: Yes: Normal Bowel Sounds, Soft Extremities: Yes: WNL Edema: No Labs: CBC, BMP Assessment/Plan Problem List - Problems (1) Hypoxemia during surgery Code(s): R09.02 - HYPOXEMIA; I97.88 - OTH INTRAOPERATIVE COMPLICATIONS OF THE CIRC SYS, NEC (2) Total knee replacement status Code(s): Z96.659 - PRESENCE OF UNSPECIFIED ARTIFICIAL KNEE JOINT (3) Chest pain Code(s): R07.9 - CHEST PAIN, UNSPECIFIED (4) Trigeminy Code(s): R00.8 - OTHER ABNORMALITIES OF HEART BEAT Assessment/Plan TACHYCARDIA/HYPOXEMIA/ VENTRICULAR TRIGEMINY S/P KNEE REPLACEMENT V/Q LOW PROBABILITY FOR PE/VENOUS DUPLEX NEGATIVE SUSPECTED OSAS + PE LIKELY PROVOKED ELIQUIS 10 mg PO BID X 7 DAYS THEN REDUCE TO 5mg PO BID INCENTIVE HINA CONTINUE SUPPLEMENTAL O2 OUTPATIENT SLEEP STUDIES tTO BE ARRANGED ZURI O2 AT NIGHT DR RANDLE
--- NOTE | 2019-01-12 14:14 | PN ---
Progress Note, Physician History of Present Illness: Pt seen and examined at bedside. He is awake and alert. He denies dysuria. - Current Medication List Current Medications: Active Medications Acetaminophen (Tylenol -) 650 mg PO Q6H [facility] Last Admin: 01/12/19 14:05 Dose: 325 mg Acetaminophen (Tylenol -) 325 mg PO Q6H PRN PRN Reason: PAIN > 6 Last Admin: 01/12/19 08:46 Dose: 325 mg Al Hydroxide/Mg Hydroxide (Mylanta Oral Suspension -) 30 ml PO Q4H PRN PRN Reason: DYSPEPSIA Albuterol/Ipratropium (Duoneb -) 1 amp NEB Q6H PRN PRN Reason: SHORTNESS OF BREATH Last Admin: 01/09/19 00:19 Dose: 1 amp Apixaban (Eliquis -) 10 mg PO BID [facility] Stop: 01/15/19 22:01 Last Admin: 01/12/19 10:53 Dose: 10 mg Apixaban (Eliquis -) 5 mg PO BID [facility] Stop: 02/09/19 22:01 Artificial Tears (Lacri-Lube Eye Ointment -) 1 applic NR HS PRN PRN Reason: DRY EYES Ferrous Sulfate (Feosol -) 325 mg PO DAILY [facility] Last Admin: 01/12/19 10:51 Dose: 325 mg Gabapentin (Neurontin -) 300 mg PO BID [facility] Last Admin: 01/12/19 10:51 Dose: 300 mg Magnesium Hydroxide (Milk Of Magnesia -) 30 ml PO PRN PRN PRN Reason: CONSTIPATION Multivitamins/Minerals/Vitamin C (Tab-A-Vit -) 1 tab PO DAILY [facility] Last Admin: 01/12/19 10:51 Dose: 1 tab Ondansetron HCl (Zofran Injection) 4 mg IVPUSH Q6H PRN PRN Reason: NAUSEA Oxycodone HCl (Roxicodone -) 5 mg PO Q6H PRN PRN Reason: PAIN > 6 Last Admin: 01/12/19 14:05 Dose: 5 mg Pantoprazole Sodium (Protonix -) 40 mg PO DAILY [facility] Last Admin: 01/12/19 10:51 Dose: 40 mg Senna/Docusate Sodium (Pericolace -) 2 tablet PO BID [facility] Last Admin: 01/12/19 10:51 Dose: 2 tablet - Objective Vital Signs: Vital Signs Temperature 98 F 01/12/19 09:23 Pulse Rate 80 01/12/19 09:23 Respiratory Rate 20 01/12/19 09:23 Blood Pressure 128/74 01/12/19 09:23 O2 Sat by Pulse Oximetry (%) 98 01/12/19 09:00 Constitutional: Yes: Calm Eyes: Yes: Conjunctiva Clear HENT: Yes: Atraumatic Neck: Yes: Supple Cardiovascular: Yes: S1, S2 Respiratory: Yes: CTA Bilaterally Gastrointestinal: Yes: Soft Genitourinary: Yes: WNL Musculoskeletal: Yes: WNL Edema: No Integumentary: Yes: WNL Neurological: Yes: Oriented Psychiatric: Yes: Oriented Labs: CBC, BMP 01/11/19 05:50 01/12/19 06:00 Problem List - Problems (1) CKD (chronic kidney disease) Code(s): N18.9 - CHRONIC KIDNEY DISEASE, UNSPECIFIED (2) Hypoxemia during surgery Code(s): R09.02 - HYPOXEMIA; I97.88 - OTH INTRAOPERATIVE COMPLICATIONS OF THE CIRC SYS, NEC (3) Total knee replacement status Code(s): Z96.659 - PRESENCE OF UNSPECIFIED ARTIFICIAL KNEE JOINT Assessment/Plan Current Medications Generic Name Dose Route Start Last Admin Trade Name Freq PRN Reason Stop Dose Admin Acetaminophen 650 mg 01/03/19 18:00 01/12/19 14:05 Tylenol - PO 325 mg Q6H [facility] Administration Acetaminophen 325 mg 01/09/19 17:56 01/12/19 08:46 Tylenol - PO 325 mg Q6H PRN Administration PAIN > 6 Al Hydroxide/Mg Hydroxide 30 ml 01/02/19 11:13 Mylanta Oral Suspension - PO Q4H PRN DYSPEPSIA Albuterol/Ipratropium 1 amp 01/09/19 00:09 01/09/19 00:19 Duoneb - NEB 1 amp Q6H PRN Administration SHORTNESS OF BREATH Apixaban 10 mg 01/11/19 22:00 01/12/19 10:53 Eliquis - PO 01/15/19 22:01 10 mg BID [facility] Administration Apixaban 5 mg 01/16/19 10:00 Eliquis - PO 02/09/19 22:01 BID [facility] Artificial Tears 1 applic 01/07/19 09:29 Lacri-Lube Eye Ointment - NR HS PRN DRY EYES Ferrous Sulfate 325 mg 01/06/19 10:00 01/12/19 10:51 Feosol - PO 325 mg DAILY [facility] Administration Gabapentin 300 mg 01/02/19 22:00 01/12/19 10:51 Neurontin - PO 300 mg BID [facility] Administration Magnesium Hydroxide 30 ml 01/02/19 11:13 Milk Of Magnesia - PO PRN PRN CONSTIPATION Multivitamins/Minerals/Vitamin C 1 tab 01/03/19 10:00 01/12/19 10:51 Tab-A-Vit - PO 1 tab DAILY [facility] Administration Ondansetron HCl 4 mg 01/02/19 11:13 Zofran Injection IVPUSH Q6H PRN NAUSEA Oxycodone HCl 5 mg 01/09/19 17:56 01/12/19 14:05 Roxicodone - PO 5 mg Q6H PRN Administration PAIN > 6 Pantoprazole Sodium 40 mg 01/03/19 10:00 01/12/19 10:51 Protonix - PO 40 mg DAILY [facility] Administration Senna/Docusate Sodium 2 tablet 01/02/19 22:00 01/12/19 10:51 Pericolace - PO 2 tablet BID [facility] Administration Impression 1. CKD vs KAITLIN 2. pulmonary embolism 3. obesity 4. hypoxia 5. s/p knee surgery 6. likely sleep apnea Plan - wide area network administrator is stable - will follow with me as outpt - discussed weight loss and diet - avoid nsaids - avoid nephrotoxins
[2019-01-12 16:15] LABS: KAPPA/LAMBDA RATIO, UR 22.81 (2.04-10.37)
[2019-01-13 13:14] LABS: HGB SOLUBILITY Negative (Negative); Hgb C 0 % (0.0); Hgb F 0 % (0.0-2.0); Hgb S 0 % (0.0)
[2019-01-13 14:09] LABS: TOTAL PROTEIN, URINE 42.6 mg/dL (Not Estab.)
[2019-01-16] MEDS ORDERED: APIXABAN 5 MG TABLET PO SCH (10:00)
== END 2019-01-12 14:35 | disposition home or self-care (01) | DRG 302 ==
LOC: UNDOADMIN 01-02 05:52 → FM/S 01-02 05:52 → UNDOADMIN 01-04 13:06 → FM/S 01-04 13:11 → J8W 01-05 19:48 → J4W 01-05 22:18
PROVIDERS: ADMIT Internal Medicine; ATTEND Internal Medicine
PROC: 0SRD0J9 Replacement of Left Knee Joint with Synthetic Substitute, Cemented, Open Approach (ICD-10-PCS; principal; 2019-01-02 09:02)
DX: M17.12 Unilateral primary osteoarthritis, left knee (principal); Z68.41 Body mass index [BMI] 40.0-44.9, adult; N17.9 Acute kidney failure, unspecified; E87.1 Hypo-osmolality and hyponatremia; I27.20 Pulmonary hypertension, unspecified; R50.82 Postprocedural fever; M96.89 Other intraoperative and postprocedural complications and disorders of the musculoskeletal system; T81.718A Complication of other artery following a procedure, not elsewhere classified, initial encounter; I26.99 Other pulmonary embolism without acute cor pulmonale; E66.01 Morbid (severe) obesity due to excess calories; N18.9 Chronic kidney disease, unspecified; R73.9 Hyperglycemia, unspecified; I49.3 Ventricular premature depolarization; R09.02 Hypoxemia; D50.9 Iron deficiency anemia, unspecified; R00.8 Other abnormalities of heart beat; G47.30 Sleep apnea, unspecified; Y83.8 Other surgical procedures as the cause of abnormal reaction of the patient, or of later complication, without mention of misadventure at the time of the procedure
CPT/HCPCS: 36415; 36600; 71045-TC-FY; 71250-TC; 71275-TC; 73560-TC-LT-FY; 76775-TC; 78582-TC; 80048; 80053; 81003; 82272; 82570; 82728; 82784; 82803; 83010; 83021; 83615; 83735; 83883; 84155; 84156; 84157; 84165; 84439; 84443; 84481; 85025; 85027; 85044; 85379; 85660; 85730; 86334; 86880; 87040; 87086; 87633; 88304-TC; 88311-TC; 93005; 93306-TC; 93970-TC; 93971-TC; 94640; 94760; 94761; 97116-GP; 97161-GP; A9539; A9540; J0131; J1644; J1756; J7030